=== PATIENT | male | born 1965 | race Caucasian/White ===

== ENCOUNTER 2021-01-23 16:45 | Emergency (ER) | payer OTHER, MEDICAID ==
[~2021-01-23] VITALS: Ht 185.4 cm; Wt 99.8 kg
[2021-01-23] MEDS ORDERED: HYDROcodone-ACET 5/325MG TAB PO ONE (17:15)
[2021-01-23 20:05] VITALS: BP 145/85
== END 2021-01-23 20:20 | disposition home or self-care (01) ==
LOC: EDBD 16:45 → ER 16:45
DX: S43.402A Unspecified sprain of left shoulder joint, initial encounter (principal); S76.012A Strain of muscle, fascia and tendon of left hip, initial encounter; M54.2 Cervicalgia; Z88.0 Allergy status to penicillin; W18.39XA Other fall on same level, initial encounter; Y93.89 Activity, other specified; Y92.89 Other specified places as the place of occurrence of the external cause; Y99.8 Other external cause status
CPT/HCPCS: 70450; 72125; 72192; 73030

== ENCOUNTER 2022-08-24 18:24 | Inpatient (IN) | payer OTHER, MEDICAID ==
[~2022-08-24] VITALS: Ht 218.4 cm; Wt 132.5 kg
[2022-08-24 19:17] LABS: Hematocrit 37.4 % (41.0-53.0); Hemoglobin 12.5 g/dL (13.5-17.5); Mean Corpuscular Hemoglobin 28.9 pg (28.0-32.0); Mean Corpuscular Hgb Conc. 33.5 g/dL (32.0-36.0); Mean Corpuscular Volume 86.1 fL (80.0-100.0); Red Blood Cells 4.34 10^6/uL (4.5-5.90); Red Cell Distribution Width 14.1 % (11.8-14.3); White Blood Cell 12.9 10^3/uL (4.4-10.8)
[2022-08-24 19:19] LABS: Basophils % (manual) 0 (0.0-2.0); Blast Cells 0; Eosinophils % (manual) 0 (0-7); Metamyelocytes % 0; Promyelocytes % 0; Reactive Lymphocytes 0
[2022-08-24 19:21] LABS: Albumin 2.7 g/dL (3.4-5.0); Calcium 8.5 mg/dL (8.5-10.1); Potassium 4.3 mmol/L (3.5-5.1)
[2022-08-24 19:24] LABS: BUN/Creatinine Ratio 21.6 (10.0-20.0); Bilirubin, Total 0.3 mg/dL (0.2-1.0); Total Protein 6.9 g/dL (6.4-8.2)
[2022-08-24 19:47] LABS: Urine Bacteria FEW /hpf (None Seen); Urine Blood 1+ /uL (Negative); Urine WBC 994 /hpf (0 - 3); Urine WBC Clumps PRESENT /hpf (None Seen)
[2022-08-24] MEDS ORDERED: HYDROcodone-ACET 10/325MG TAB PO ONE (21:00)
[2022-08-24] MEDS ORDERED: ONDANSETRON ODT 4 MG TAB PO ONE (21:00)
[2022-08-24 21:36] LABS: Alcohol, Urine < 3.0 mg/dL (0-10); Amphetamine Screen, Urine NEGATIVE (NEGATIVE); Barbiturate Scree,Urine NEGATIVE (NEGATIVE); Benzodiazephine Screen, Urine NEGATIVE (NEGATIVE); Cannabinoid Screen, Urine NEGATIVE (NEGATIVE); Cocaine Screen, Urine NEGATIVE (NEGATIVE); Opiate Scree,Urine NEGATIVE (NEGATIVE); Phencyclidine Screen, Urine NEGATIVE (NEGATIVE)
[2022-08-24 21:38] LABS: Band Neutrophils % (manual) 3; Lymphocytes % (manual) 16 (10.0-50.0); Monocytes % (manual) 11 (0-12); Myelocytes % 1
[2022-08-24 22:00] LABS: Blood Alcohol < 3.0 mg/dL (0-5); Lipase 36 U/L (73-393)
[2022-08-25] MEDS ORDERED: cefTRIAXone 1GM/50ML D5W 50 ML IV ONE (02:45)
[2022-08-25] MEDS ORDERED: ACETAMINOPHEN 325 MG TAB PO PRN (03:15)
[2022-08-25] MEDS ORDERED: DEXTROSE (50%) 50ML SYRG IV PRN (03:15)
[2022-08-25] MEDS ORDERED: HYDROcodone-ACET 10/325MG TAB PO ONE (04:30)
[2022-08-25] MEDS ORDERED: ONDANSETRON ODT 4 MG TAB PO ONE (04:30)
[2022-08-25] MEDS ORDERED: MORPHINE SULFATE INJ 2 MG/ml SYRG IV PRN (04:45)
[2022-08-25] MEDS ORDERED: NITROGLYCERIN 0.4 MG SL TAB SL PRN (04:45)
[2022-08-25 05:02] LABS: Hematocrit 38.1 % (41.0-53.0); Hemoglobin 12.6 g/dL (13.5-17.5); Mean Corpuscular Hemoglobin 28.5 pg (28.0-32.0); Mean Corpuscular Volume 86.5 fL (80.0-100.0); Red Blood Cells 4.41 10^6/uL (4.5-5.90); White Blood Cell 14.4 10^3/uL (4.4-10.8)
[2022-08-25 05:04] LABS: Basophils % (manual) 0 (0.0-2.0); Blast Cells 0; Myelocytes % 0; Promyelocytes % 0; Reactive Lymphocytes 0
[2022-08-25 05:17] LABS: Albumin 2.7 g/dL (3.4-5.0); Calcium 8.4 mg/dL (8.5-10.1); Potassium 4.4 mmol/L (3.5-5.1)
[2022-08-25 05:20] LABS: BUN/Creatinine Ratio 20.7 (10.0-20.0)
[2022-08-25 05:23] LABS: Bilirubin, Total 0.3 mg/dL (0.2-1.0); Total Protein 6.9 g/dL (6.4-8.2)
[2022-08-25] MEDS: SODIUM CHLOR 0.9% PF (SALINE LOCK) 10ML VIAL/SYR IV SCH ×3 (06:02→21:58)
[2022-08-25] MEDS: ACCU-CHEK COMFORT CURVE STRIP VI SCH ×4 (06:40→22:10)
[2022-08-25] MEDS: InsuLIN REG 1unit/0.01ml Soln (100units/ml) SC SCH ×4 (06:49→22:09)
[2022-08-25 09:41] LABS: Band Neutrophils % (manual) 2; Eosinophils % (manual) 2 (0-7); Lymphocytes % (manual) 16 (10.0-50.0); Metamyelocytes % 1; Monocytes % (manual) 5 (0-12)
[2022-08-25] MEDS: FAMOTIDINE (10MG/ML) 2ML VL IV SCH (10:44)
[2022-08-25] MEDS: ASPirin 81 mg TAB PO SCH (10:44)
[2022-08-25] MEDS: levoFLOXacin 250MG 50 ML IV SCH (10:44)
[2022-08-25] MEDS: CARVEDILOL 12.5 MG TAB PO SCH ×2 (10:45→21:57)
[2022-08-25] MEDS: DOCUSATE SOD 100 MG CAP PO PRN (11:18)
[2022-08-25] MEDS: ONDANSETRON HCL 4 MG/2 ML VIAL IV PRN ×2 (11:18→17:51)
[2022-08-25] MEDS: HYDROcodone-ACET 5/325MG TAB PO PRN ×2 (12:12→21:56)
[2022-08-25 16:00] VITALS: BP 109/61
[2022-08-25 16:52] VITALS: BP 120/66
[2022-08-25] MEDS: TAMSULOSIN HYDROCHLORIDE 0.4 MG CAP PO SCH (17:50)
[2022-08-25 20:00] VITALS: BP 138/58
[2022-08-25 22:00] VITALS: BP 138/58
[2022-08-26 05:00] VITALS: BP 129/57
[2022-08-26] MEDS: SODIUM CHLOR 0.9% PF (SALINE LOCK) 10ML VIAL/SYR IV SCH ×3 (05:42→22:44)
[2022-08-26] MEDS: ACCU-CHEK COMFORT CURVE STRIP VI SCH ×4 (05:43→22:06)
[2022-08-26] MEDS: InsuLIN REG 1unit/0.01ml Soln (100units/ml) SC SCH ×4 (05:47→22:36)
[2022-08-26 06:06] LABS: Hematocrit 35.9 % (41.0-53.0); Hemoglobin 11.7 g/dL (13.5-17.5); Mean Corpuscular Hemoglobin 28.3 pg (28.0-32.0); Mean Corpuscular Hgb Conc. 32.6 g/dL (32.0-36.0); Mean Corpuscular Volume 86.7 fL (80.0-100.0); Red Blood Cells 4.14 10^6/uL (4.5-5.90); Red Cell Distribution Width 13.9 % (11.8-14.3); White Blood Cell 13.1 10^3/uL (4.4-10.8)
[2022-08-26 06:18] LABS: Calcium 8.5 mg/dL (8.5-10.1); Potassium 4.5 mmol/L (3.5-5.1)
[2022-08-26 06:24] LABS: Albumin 2.3 g/dL (3.4-5.0); BUN/Creatinine Ratio 21.3 (10.0-20.0); Bilirubin, Total 0.3 mg/dL (0.2-1.0); Total Protein 6.1 g/dL (6.4-8.2)
[2022-08-26 06:33] LABS: Basophils % (manual) 0 (0.0-2.0); Blast Cells 0; Metamyelocytes % 0; Myelocytes % 0; Promyelocytes % 0
[2022-08-26 08:15] VITALS: BP 121/59
[2022-08-26 08:24] LABS: Band Neutrophils % (manual) 4; Eosinophils % (manual) 2 (0-7); Lymphocytes % (manual) 15 (10.0-50.0); Monocytes % (manual) 9 (0-12); Reactive Lymphocytes 1
[2022-08-26] MEDS: ONDANSETRON HCL 4 MG/2 ML VIAL IV PRN ×2 (08:40→18:01)
[2022-08-26] MEDS: DOCUSATE SOD 100 MG CAP PO PRN ×2 (08:41→18:01)
[2022-08-26 09:00] VITALS: BP 121/59
[2022-08-26] MEDS: FAMOTIDINE (10MG/ML) 2ML VL IV SCH (09:59)
[2022-08-26] MEDS: levoFLOXacin 250MG 50 ML IV SCH (10:00)
[2022-08-26] MEDS: CARVEDILOL 12.5 MG TAB PO SCH ×2 (10:00→22:45)
[2022-08-26] MEDS: ASPirin 81 mg TAB PO SCH (10:00)
[2022-08-26 13:00] VITALS: BP 137/67
[2022-08-26] MEDS: SODIUM CHLORIDE 0.9% 1,000 ML IV SCH ×2 (14:16→16:29)
[2022-08-26 16:27] LABS: Protein, Urine 32.8 mg/dL (0.0-11.9)
[2022-08-26 16:44] VITALS: BP 128/51
[2022-08-26] MEDS: TAMSULOSIN HYDROCHLORIDE 0.4 MG CAP PO SCH (17:44)
[2022-08-26 22:00] VITALS: BP 156/74
[2022-08-26] MEDS: HYDROcodone-ACET 5/325MG TAB PO PRN (22:06)
[2022-08-27 05:00] VITALS: BP 131/66
[2022-08-27 05:49] LABS: Basophils # (auto) 0.1 10 ^3/uL (0-0.2); Basophils % (auto) 0.4 % (0.0-2.0); Eosinophils # (auto) 0.2 10 ^3/uL (0-0.8); Hematocrit 34.5 % (41.0-53.0); Hemoglobin 11.4 g/dL (13.5-17.5); Lymphocytes # (auto) 1.8 10 ^3/uL (0.4-5.4); Lymphocytes % (auto) 15.7 % (10.0-50.0); Mean Corpuscular Hemoglobin 28.5 pg (28.0-32.0); Mean Corpuscular Hgb Conc. 33.1 g/dL (32.0-36.0); Monocytes # (auto) 1.2 10 ^3/uL (0-1.3); Monocytes % (auto) 10.8 % (0.0-12.0); Neutrophils % (auto) 71.1 % (37.0-80.0); Nucleated Red Blood Cells % 0.1 %; Red Cell Distribution Width 13.7 % (11.8-14.3); White Blood Cell 11.3 10^3/uL (4.4-10.8)
[2022-08-27] MEDS: SODIUM CHLORIDE 0.9% 1,000 ML IV SCH ×2 (06:14→17:32)
[2022-08-27] MEDS: ACCU-CHEK COMFORT CURVE STRIP VI SCH ×4 (06:14→22:54)
[2022-08-27] MEDS: SODIUM CHLOR 0.9% PF (SALINE LOCK) 10ML VIAL/SYR IV SCH ×3 (06:14→22:58)
[2022-08-27] MEDS: InsuLIN REG 1unit/0.01ml Soln (100units/ml) SC SCH ×4 (06:16→22:56)
[2022-08-27 06:22] LABS: Calcium 8.2 mg/dL (8.5-10.1); Potassium 4.8 mmol/L (3.5-5.1)
[2022-08-27 06:24] LABS: Uric Acid 5.8 mg/dL (3.5-7.2)
[2022-08-27] MEDS: ONDANSETRON HCL 4 MG/2 ML VIAL IV PRN ×3 (07:40→22:47)
[2022-08-27 08:15] VITALS: BP 150/73
[2022-08-27 09:00] VITALS: BP 150/73
[2022-08-27] MEDS: FAMOTIDINE (10MG/ML) 2ML VL IV SCH (10:14)
[2022-08-27] MEDS: DOCUSATE SOD 100 MG CAP PO PRN ×2 (10:15→22:48)
[2022-08-27] MEDS: HYDROcodone-ACET 5/325MG TAB PO PRN ×3 (10:15→22:48)
[2022-08-27] MEDS: ASPirin 81 mg TAB PO SCH (10:15)
[2022-08-27] MEDS: CARVEDILOL 12.5 MG TAB PO SCH ×2 (10:15→22:51)
[2022-08-27] MEDS: levoFLOXacin 250MG 50 ML IV SCH (10:16)
[2022-08-27 12:52] VITALS: BP 146/81
[2022-08-27] MEDS: TAMSULOSIN HYDROCHLORIDE 0.4 MG CAP PO SCH (17:47)
[2022-08-27 22:00] VITALS: BP 149/67
[2022-08-28] MEDS: SODIUM CHLORIDE 0.9% 1,000 ML IV SCH ×2 (02:45→12:45)
[2022-08-28 05:00] VITALS: BP 136/59
[2022-08-28] MEDS: SODIUM CHLOR 0.9% PF (SALINE LOCK) 10ML VIAL/SYR IV SCH ×3 (06:46→22:38)
[2022-08-28] MEDS: ACCU-CHEK COMFORT CURVE STRIP VI SCH ×4 (06:46→22:38)
[2022-08-28 06:47] LABS: Calcium 8.2 mg/dL (8.5-10.1); Potassium 4.8 mmol/L (3.5-5.1)
[2022-08-28] MEDS: ONDANSETRON HCL 4 MG/2 ML VIAL IV PRN ×3 (06:56→22:33)
[2022-08-28] MEDS: InsuLIN REG 1unit/0.01ml Soln (100units/ml) SC SCH ×4 (06:56→22:39)
[2022-08-28 09:07] VITALS: BP 128/64
[2022-08-28] MEDS: ASPirin 81 mg TAB PO SCH (10:58)
[2022-08-28] MEDS: CARVEDILOL 12.5 MG TAB PO SCH ×3 (10:59→22:33)
[2022-08-28] MEDS: levoFLOXacin 250MG 50 ML IV SCH (10:59)
[2022-08-28] MEDS ORDERED: LEVO500T31 PO ×2 (11:21)
[2022-08-28] MEDS ORDERED: TAM04C PO ×2 (11:21)
[2022-08-28] MEDS ORDERED: DOCU-94 PO ×2 (11:22)
[2022-08-28] MEDS ORDERED: ENAL10TA12 PO ×2 (11:22)
[2022-08-28 13:00] VITALS: BP 140/68
[2022-08-28 13:56] VITALS: BP 140/68
[2022-08-28] MEDS ORDERED: POLYETHYLENE GLYCOL 17 GM PWDR PO ONE (14:15)
[2022-08-28 17:00] VITALS: BP 141/69
[2022-08-28] MEDS: TAMSULOSIN HYDROCHLORIDE 0.4 MG CAP PO SCH (18:00)
[2022-08-28 21:30] VITALS: BP 147/58
[2022-08-28] MEDS: DOCUSATE SOD 100 MG CAP PO PRN (22:33)
[2022-08-28] MEDS: HYDROcodone-ACET 5/325MG TAB PO PRN (22:33)
[2022-08-29] MEDS: SODIUM CHLORIDE 0.9% 1,000 ML IV SCH ×4 (00:09→14:11)
[2022-08-29] MEDS: ONDANSETRON HCL 4 MG/2 ML VIAL IV PRN ×3 (02:40→21:28)
[2022-08-29 05:00] VITALS: BP 142/71
[2022-08-29] MEDS: SODIUM CHLOR 0.9% PF (SALINE LOCK) 10ML VIAL/SYR IV SCH ×3 (06:45→21:13)
[2022-08-29] MEDS: InsuLIN REG 1unit/0.01ml Soln (100units/ml) SC SCH ×4 (07:00→21:23)
[2022-08-29] MEDS: ACCU-CHEK COMFORT CURVE STRIP VI SCH ×4 (07:00→21:12)
[2022-08-29] MEDS: ASPirin 81 mg TAB PO SCH (08:48)
[2022-08-29] MEDS: levoFLOXacin 250MG 50 ML IV SCH (08:48)
[2022-08-29] MEDS: CARVEDILOL 12.5 MG TAB PO SCH ×2 (08:50→09:50)
[2022-08-29 08:52] VITALS: BP 126/73
[2022-08-29] MEDS ORDERED: FLEET ENEMA(ADULT) 135 ML PR ONE (11:00)
[2022-08-29] MEDS ORDERED: LACTULOSE 20Gm/30ML SOLN PO ONE (11:00)
[2022-08-29 13:19] VITALS: BP 164/63
[2022-08-29 17:02] VITALS: BP 151/71
[2022-08-29] MEDS: TAMSULOSIN HYDROCHLORIDE 0.4 MG CAP PO SCH (18:48)
[2022-08-29] MEDS: DOCUSATE SOD 100 MG CAP PO PRN (21:27)
[2022-08-29 22:00] VITALS: BP 143/70
[2022-08-29] MEDS ORDERED: CARVEDILOL 12.5 MG TAB PO ONE (22:00)
[2022-08-30] MEDS: ONDANSETRON HCL 4 MG/2 ML VIAL IV PRN ×2 (04:23→09:42)
[2022-08-30] MEDS: HYDROcodone-ACET 5/325MG TAB PO PRN ×2 (04:31→09:42)
[2022-08-30 05:00] VITALS: BP 143/68
[2022-08-30] MEDS: SODIUM CHLOR 0.9% PF (SALINE LOCK) 10ML VIAL/SYR IV SCH (06:33)
[2022-08-30] MEDS: ACCU-CHEK COMFORT CURVE STRIP VI SCH ×2 (06:34→12:00)
[2022-08-30] MEDS: InsuLIN REG 1unit/0.01ml Soln (100units/ml) SC SCH ×3 (06:35→12:48)
[2022-08-30 09:00] VITALS: BP 152/75
[2022-08-30] MEDS: DOCUSATE SOD 100 MG CAP PO PRN (09:42)
[2022-08-30] MEDS: CARVEDILOL 12.5 MG TAB PO SCH (09:42)
[2022-08-30] MEDS: ASPirin 81 mg TAB PO SCH (09:42)
[2022-08-30] MEDS: levoFLOXacin 250MG 50 ML IV SCH (09:43)
[2022-08-30] MEDS ORDERED: LEVO500T31 PO (10:07)
[2022-08-30] MEDS ORDERED: DOCU-94 PO (10:07)
[2022-08-30] MEDS ORDERED: PANT40T PO (10:07)
[2022-08-30] MEDS ORDERED: ENAL10TA12 PO (10:07)
[2022-08-30] MEDS ORDERED: TAM04C PO (10:07)
[2022-08-30] MEDS ORDERED: ONDA-144 PO (10:07)
== END 2022-08-30 12:30 | disposition home or self-care (01) | DRG 871 ==
LOC: ER 18:24 → OVERFLOW 08-25 04:42 → WEST WING 08-25 15:53
PROVIDERS: ADMIT Nurse Practitioner Family; ATTEND Family Medicine
PROC: 05HF33Z Insertion of Infusion Device into Left Cephalic Vein, Percutaneous Approach (ICD-10-PCS; principal; 2022-08-25)
PROC: B54NZZA Ultrasonography of Left Upper Extremity Veins, Guidance (ICD-10-PCS; 2022-08-25)
DX: A41.9 Sepsis, unspecified organism (principal); I50.31 Acute diastolic (congestive) heart failure; N17.9 Acute kidney failure, unspecified; L03.115 Cellulitis of right lower limb; E87.1 Hypo-osmolality and hyponatremia; I13.0 Hypertensive heart and chronic kidney disease with heart failure and stage 1 through stage 4 chronic kidney disease, or unspecified chronic kidney disease; N30.90 Cystitis, unspecified without hematuria; R33.8 Other retention of urine; N32.89 Other specified disorders of bladder; I25.10 Atherosclerotic heart disease of native coronary artery without angina pectoris; J44.9 Chronic obstructive pulmonary disease, unspecified; E66.9 Obesity, unspecified; N40.1 Benign prostatic hyperplasia with lower urinary tract symptoms; K59.00 Constipation, unspecified; F41.9 Anxiety disorder, unspecified; E11.22 Type 2 diabetes mellitus with diabetic chronic kidney disease; E11.42 Type 2 diabetes mellitus with diabetic polyneuropathy; E78.5 Hyperlipidemia, unspecified; Z99.3 Dependence on wheelchair; I25.2 Old myocardial infarction; Z91.199 Patient's noncompliance with other medical treatment and regimen due to unspecified reason; Z88.0 Allergy status to penicillin; Z88.1 Allergy status to other antibiotic agents; Z88.2 Allergy status to sulfonamides; Z83.3 Family history of diabetes mellitus; Z89.512 Acquired absence of left leg below knee; Z95.1 Presence of aortocoronary bypass graft; Z86.73 Personal history of transient ischemic attack (TIA), and cerebral infarction without residual deficits; Z87.891 Personal history of nicotine dependence; Z68.26 Body mass index [BMI] 26.0-26.9, adult; N18.32 Chronic kidney disease, stage 3b; E11.65 Type 2 diabetes mellitus with hyperglycemia
CPT/HCPCS: 36415; 74176; 80048; 80053; 80307; 80320; 81001; 82306; 82570; 82962; 83036; 83690; 83880; 83930; 84154; 84156; 84300; 84443; 84484; 84550; 85007; 85025; 85027; 87040; 87086; G0378; J0696; J1815; J2405; J3490; Q0162

== ENCOUNTER 2022-09-10 02:35 | Inpatient (IN) | payer OTHER, MEDICAID ==
[~2022-09-10] VITALS: Ht 188 cm; Wt 138.6 kg
[~2022-09-10 02:35] MED LIST: DOCU-94 PO; ENAL10TA12 PO; LEVO500T31 PO; ONDA-144 PO; PANT40T PO; TAM04C PO
[2022-09-10] MEDS ORDERED: HYDROcodone-ACET 10/325MG TAB PO ONE (08:00)
[2022-09-10 08:14] LABS: Hemoglobin 12.4 g/dL (13.5-17.5); Mean Corpuscular Hemoglobin 28.5 pg (28.0-32.0); Mean Corpuscular Hgb Conc. 32.7 g/dL (32.0-36.0); Red Blood Cells 4.36 10^6/uL (4.5-5.90); Red Cell Distribution Width 13.6 % (11.8-14.3)
[2022-09-10 08:19] LABS: Basophils % (manual) 0 (0.0-2.0); Blast Cells 0; Eosinophils % (manual) 0 (0-7); Metamyelocytes % 0; Myelocytes % 0; Promyelocytes % 0; Reactive Lymphocytes 0
[2022-09-10 08:42] LABS: Albumin 2.9 g/dL (3.4-5.0); Calcium 8.4 mg/dL (8.5-10.1); Potassium 4.6 mmol/L (3.5-5.1)
[2022-09-10 08:45] LABS: BUN/Creatinine Ratio 16.3 (10.0-20.0); Bilirubin, Total 0.7 mg/dL (0.2-1.0); Total Protein 7.4 g/dL (6.4-8.2)
[2022-09-10] MEDS ORDERED: levoFLOXacin 750MG 150 ML IV ONE (09:00)
[2022-09-10] MEDS: SODIUM CHLORIDE 0.9% 1,000 ML IV SCH ×2 (10:54→20:45)
[2022-09-10 11:11] LABS: Urine Bacteria FEW /hpf (None Seen); Urine Blood 3+ /uL (Negative); Urine Specific Gravity 1.011 (1.001-1.035); Urine WBC 1576 /hpf (0 - 3); Urine WBC Clumps PRESENT /hpf (None Seen)
[2022-09-10 11:17] LABS: Cholesterol 107 mg/dL (< 200)
[2022-09-10 11:20] LABS: HDL Cholesterol 36 mg/dL (40-59); LDL Cholesterol 66 mg/dL (< 100); Triglycerides 108 mg/dL (< 150)
[2022-09-10] MEDS ORDERED: IPRATROPIUM BROM 0.5 MG/2.5ML INH SOL NEB PRN (11:45)
[2022-09-10] MEDS ORDERED: ALBUTEROL SULF 2.5 MG/0.5ML(0.5%) NEB SOLN NEB PRN (11:45)
[2022-09-10] MEDS ORDERED: MORPHINE SULFATE INJ 2 MG/ml SYRG IV PRN ×2 (11:45→12:00)
[2022-09-10] MEDS ORDERED: NITROGLYCERIN 0.4 MG SL TAB SL PRN (11:45)
[2022-09-10] MEDS ORDERED: ASPI-325 PO (11:55)
[2022-09-10] MEDS ORDERED: ENOXAPARIN SOD 150 MG/1 ML SYRINGE SC ONE (12:00)
[2022-09-10] MEDS: INSULIN LANTUS (GLARGINE) 1 /0.01ml (100units/ml) SC SCH ×2 (12:07→22:10)
[2022-09-10] MEDS: TAMSULOSIN HYDROCHLORIDE 0.4 MG CAP PO SCH (12:07)
[2022-09-10] MEDS ORDERED: ONDANSETRON HCL 4 MG/2 ML VIAL IV ONE (12:15)
[2022-09-10 12:23] LABS: INR 1.08 (0.9-1.15); Partial Thromboplastin Time 32.2 sec (24.6-33.4)
[2022-09-10 12:56] LABS: Band Neutrophils % (manual) 10; Lymphocytes % (manual) 9 (10.0-50.0); Monocytes % (manual) 13 (0-12)
[2022-09-10] MEDS: AZTREONAM 1 GM in D5W 5% 50 ML IV SCH ×2 (14:00→22:05)
[2022-09-10 17:18] VITALS: BP 114/64
[2022-09-10] MEDS: HYDROcodone-ACET 5/325MG TAB PO PRN (20:04)
[2022-09-10] MEDS ORDERED: DEXTROSE (50%) 50ML SYRG IV PRN (20:45)
[2022-09-10] MEDS: ONDANSETRON HCL 4 MG/2 ML VIAL IV PRN (21:07)
[2022-09-10] MEDS: InsuLIN REG 1unit/0.01ml Soln (100units/ml) SC SCH (21:09)
[2022-09-10] MEDS: ACCU-CHEK COMFORT CURVE STRIP VI SCH (21:13)
[2022-09-10] MEDS ORDERED: CEFEPIME 1GM/ 50ML 50 ML IV SCH (22:00)
[2022-09-11] MEDS: HYDROcodone-ACET 5/325MG TAB PO PRN ×4 (02:10→23:07)
[2022-09-11] MEDS: ONDANSETRON HCL 4 MG/2 ML VIAL IV PRN ×3 (04:01→16:55)
[2022-09-11 05:53] LABS: Hematocrit 30.7 % (41.0-53.0); Hemoglobin 10.5 g/dL (13.5-17.5); Mean Corpuscular Hemoglobin 29.4 pg (28.0-32.0); Mean Corpuscular Hgb Conc. 34.1 g/dL (32.0-36.0); Mean Corpuscular Volume 86.4 fL (80.0-100.0); Red Blood Cells 3.55 10^6/uL (4.5-5.90); Red Cell Distribution Width 13.5 % (11.8-14.3); White Blood Cell 9.2 10^3/uL (4.4-10.8)
[2022-09-11 06:06] LABS: Basophils % (manual) 0 (0.0-2.0); Blast Cells 0; Myelocytes % 0; Promyelocytes % 0; Reactive Lymphocytes 0
[2022-09-11 06:09] LABS: Albumin 2.4 g/dL (3.4-5.0); Calcium 7.9 mg/dL (8.5-10.1); Potassium 4.3 mmol/L (3.5-5.1)
[2022-09-11 06:14] LABS: Bilirubin, Total 0.4 mg/dL (0.2-1.0); Total Protein 6.6 g/dL (6.4-8.2)
[2022-09-11] MEDS: AZTREONAM 1 GM in D5W 5% 50 ML IV SCH ×3 (06:18→23:00)
[2022-09-11] MEDS: ACCU-CHEK COMFORT CURVE STRIP VI SCH ×4 (06:58→23:08)
[2022-09-11] MEDS: INSULIN LANTUS (GLARGINE) 1 /0.01ml (100units/ml) SC SCH ×2 (07:07→22:59)
[2022-09-11] MEDS: InsuLIN REG 1unit/0.01ml Soln (100units/ml) SC SCH ×4 (07:08→22:00)
[2022-09-11] MEDS: PANTOPRAZOLE 40 MG/10 ML VIAL INJ IV SCH (08:59)
[2022-09-11] MEDS: TAMSULOSIN HYDROCHLORIDE 0.4 MG CAP PO SCH (09:00)
[2022-09-11] MEDS: ENOXAPARIN SOD 40 MG/0.4 ML SYRINGE SC SCH (09:00)
[2022-09-11] MEDS: SODIUM CHLORIDE 0.9% 1,000 ML IV SCH ×2 (09:12→14:31)
[2022-09-11 10:00] LABS: Band Neutrophils % (manual) 6; Eosinophils % (manual) 3 (0-7); Lymphocytes % (manual) 19 (10.0-50.0); Metamyelocytes % 1; Monocytes % (manual) 14 (0-12)
[2022-09-11] MEDS ORDERED: PANTOPRAZOLE 40 MG/10 ML VIAL INJ IV SCH (10:00)
[2022-09-11] MEDS ORDERED: MORPHINE SULFATE INJ 2 MG/ml SYRG IV PRN (11:00)
[2022-09-11 14:31] VITALS: BP 159/84
[2022-09-11 14:42] VITALS: BP 159/84
[2022-09-11 17:03] VITALS: BP 118/53
[2022-09-11] MEDS ORDERED: DOCU100C10 PO (18:05)
[2022-09-11] MEDS ORDERED: ALBU108A5 PO (18:05)
[2022-09-11] MEDS ORDERED: POTA1TAB64 PO (18:05)
[2022-09-11] MEDS ORDERED: CARV6.2551 PO (18:05)
[2022-09-11] MEDS ORDERED: NYS15TP TOP (18:05)
[2022-09-11] MEDS ORDERED: ENAL10TA13 PO (18:05)
[2022-09-11] MEDS ORDERED: HYDR-4798 PO (18:05)
[2022-09-11] MEDS ORDERED: LORA-483 PO (18:05)
[2022-09-11] MEDS ORDERED: ONDA-188 PO (18:05)
[2022-09-11] MEDS ORDERED: TAMS0.4C36 PO (18:05)
[2022-09-11] MEDS ORDERED: GAB100C PO (18:05)
[2022-09-11] MEDS ORDERED: ROSU1TAB12 PO (18:05)
[2022-09-11] MEDS ORDERED: SEMA2INJ2 SC (18:05)
[2022-09-11] MEDS ORDERED: DIGO0.12 PO (18:05)
[2022-09-11] MEDS ORDERED: INSU100I44 SC (18:05)
[2022-09-11] MEDS ORDERED: PANC3600 PO (18:05)
[2022-09-11] MEDS ORDERED: INSU1INJ19 SC (18:05)
[2022-09-11] MEDS ORDERED: CLOP75TA70 PO (18:05)
[2022-09-11 20:20] VITALS: BP 114/56
[2022-09-11 22:00] VITALS: BP 114/56
[2022-09-12] MEDS: SODIUM CHLORIDE 0.9% 1,000 ML IV SCH ×3 (04:43→14:00)
[2022-09-12 05:00] VITALS: BP 123/57
[2022-09-12] MEDS: InsuLIN REG 1unit/0.01ml Soln (100units/ml) SC SCH ×4 (06:28→22:19)
[2022-09-12] MEDS: INSULIN LANTUS (GLARGINE) 1 /0.01ml (100units/ml) SC SCH ×2 (06:28→22:17)
[2022-09-12] MEDS: AZTREONAM 1 GM in D5W 5% 50 ML IV SCH ×3 (06:29→22:16)
[2022-09-12] MEDS: ACCU-CHEK COMFORT CURVE STRIP VI SCH ×4 (06:30→22:16)
[2022-09-12 08:00] VITALS: BP 122/55
[2022-09-12 09:00] VITALS: BP 122/55
[2022-09-12] MEDS: TAMSULOSIN HYDROCHLORIDE 0.4 MG CAP PO SCH (09:52)
[2022-09-12] MEDS: ENOXAPARIN SOD 40 MG/0.4 ML SYRINGE SC SCH (09:52)
[2022-09-12] MEDS: PANTOPRAZOLE 40 MG/10 ML VIAL INJ IV SCH (09:52)
[2022-09-12] MEDS: HYDROcodone-ACET 5/325MG TAB PO PRN (09:53)
[2022-09-12 13:00] VITALS: BP 114/60
[2022-09-12 17:00] VITALS: BP 128/52
[2022-09-12 22:00] VITALS: BP 134/77
[2022-09-13 05:00] VITALS: BP 133/64
[2022-09-13] MEDS: AZTREONAM 1 GM in D5W 5% 50 ML IV SCH ×3 (06:06→21:40)
[2022-09-13] MEDS: INSULIN LANTUS (GLARGINE) 1 /0.01ml (100units/ml) SC SCH ×2 (06:07→21:22)
[2022-09-13] MEDS: InsuLIN REG 1unit/0.01ml Soln (100units/ml) SC SCH ×4 (06:12→21:23)
[2022-09-13] MEDS: ACCU-CHEK COMFORT CURVE STRIP VI SCH ×4 (06:12→21:40)
[2022-09-13] MEDS: SODIUM CHLORIDE 0.9% 1,000 ML IV SCH ×2 (08:45→15:33)
[2022-09-13 09:00] VITALS: BP 140/59
[2022-09-13 09:30] LABS: BUN/Creatinine Ratio 12.7 (10.0-20.0); Calcium 7.8 mg/dL (8.5-10.1); Potassium 4.6 mmol/L (3.5-5.1)
[2022-09-13 09:51] LABS: Basophils # (auto) 0 10 ^3/uL (0-0.2); Basophils % (auto) 0.6 % (0.0-2.0); Eosinophils # (auto) 0.2 10 ^3/uL (0-0.8); Eosinophils % (auto) 4.5 % (0.0-7.0); Hematocrit 32.5 % (41.0-53.0); Hemoglobin 10.4 g/dL (13.5-17.5); Lymphocytes # (auto) 1.4 10 ^3/uL (0.4-5.4); Lymphocytes % (auto) 25.5 % (10.0-50.0); Mean Corpuscular Hemoglobin 30.2 pg (28.0-32.0); Mean Corpuscular Hgb Conc. 32.1 g/dL (32.0-36.0); Mean Corpuscular Volume 93.9 fL (80.0-100.0); Monocytes # (auto) 0.8 10 ^3/uL (0-1.3); Monocytes % (auto) 14.5 % (0.0-12.0); Neutrophils % (auto) 54.9 % (37.0-80.0); Nucleated Red Blood Cells % 0.2 %; Red Blood Cells 3.46 10^6/uL (4.5-5.90); White Blood Cell 5.5 10^3/uL (4.4-10.8)
[2022-09-13] MEDS: TAMSULOSIN HYDROCHLORIDE 0.4 MG CAP PO SCH (10:32)
[2022-09-13] MEDS: DOCUSATE SOD 100 MG CAP PO SCH (10:32)
[2022-09-13] MEDS: PANTOPRAZOLE 40 MG/10 ML VIAL INJ IV SCH (10:33)
[2022-09-13] MEDS: ENOXAPARIN SOD 40 MG/0.4 ML SYRINGE SC SCH (10:33)
[2022-09-13 13:00] VITALS: BP 137/54
[2022-09-13 16:44] VITALS: BP 131/60
[2022-09-13 22:00] VITALS: BP 142/77
[2022-09-14 05:00] VITALS: BP 149/79
[2022-09-14] MEDS: SODIUM CHLORIDE 0.9% 1,000 ML IV SCH ×2 (05:03→14:45)
[2022-09-14] MEDS: AZTREONAM 1 GM in D5W 5% 50 ML IV SCH ×3 (06:02→22:08)
[2022-09-14] MEDS: ACCU-CHEK COMFORT CURVE STRIP VI SCH ×4 (06:29→22:22)
[2022-09-14] MEDS: InsuLIN REG 1unit/0.01ml Soln (100units/ml) SC SCH ×4 (06:30→22:32)
[2022-09-14] MEDS: INSULIN LANTUS (GLARGINE) 1 /0.01ml (100units/ml) SC SCH ×2 (06:36→22:33)
[2022-09-14 09:00] VITALS: BP 161/73
[2022-09-14] MEDS: TAMSULOSIN HYDROCHLORIDE 0.4 MG CAP PO SCH (10:20)
[2022-09-14] MEDS: DOCUSATE SOD 100 MG CAP PO SCH (10:21)
[2022-09-14] MEDS: ENOXAPARIN SOD 40 MG/0.4 ML SYRINGE SC SCH (10:21)
[2022-09-14] MEDS: PANTOPRAZOLE 40 MG/10 ML VIAL INJ IV SCH (10:21)
[2022-09-14 13:00] VITALS: BP 139/75
[2022-09-14 16:40] VITALS: BP 154/91
[2022-09-14 20:00] VITALS: BP 153/81
[2022-09-14 21:55] VITALS: BP 153/81
[2022-09-14] MEDS: hydrALAZINE HCL 20 MG/ML VL IV PRN (22:14)
[2022-09-15] MEDS: SODIUM CHLORIDE 0.9% 1,000 ML IV SCH ×3 (00:45→21:43)
[2022-09-15] MEDS: AZTREONAM 1 GM in D5W 5% 50 ML IV SCH ×3 (05:20→21:44)
[2022-09-15] MEDS: hydrALAZINE HCL 20 MG/ML VL IV PRN ×2 (05:25→22:27)
[2022-09-15 05:26] VITALS: BP 157/77
[2022-09-15] MEDS: ACCU-CHEK COMFORT CURVE STRIP VI SCH ×4 (05:38→21:50)
[2022-09-15] MEDS: InsuLIN REG 1unit/0.01ml Soln (100units/ml) SC SCH ×4 (05:44→21:49)
[2022-09-15] MEDS: INSULIN LANTUS (GLARGINE) 1 /0.01ml (100units/ml) SC SCH ×2 (05:45→21:50)
[2022-09-15 08:00] VITALS: BP 153/81
[2022-09-15 09:09] VITALS: BP 133/58
[2022-09-15] MEDS: TAMSULOSIN HYDROCHLORIDE 0.4 MG CAP PO SCH (09:58)
[2022-09-15] MEDS: DOCUSATE SOD 100 MG CAP PO SCH (09:58)
[2022-09-15] MEDS: PANTOPRAZOLE 40 MG/10 ML VIAL INJ IV SCH (09:58)
[2022-09-15] MEDS: ENOXAPARIN SOD 40 MG/0.4 ML SYRINGE SC SCH (09:59)
[2022-09-15] MEDS ORDERED: MILK OF MAGNESIA 30ML SUSP PO ONE (13:45)
[2022-09-15 16:31] VITALS: BP 127/81
[2022-09-15 22:00] VITALS: BP 159/70
[2022-09-15] MEDS: ONDANSETRON HCL 4 MG/2 ML VIAL IV PRN (22:14)
[2022-09-15 23:20] VITALS: BP 112/53
[2022-09-16] MEDS: HYDROcodone-ACET 5/325MG TAB PO PRN (03:57)
[2022-09-16] MEDS: AZTREONAM 1 GM in D5W 5% 50 ML IV SCH ×3 (05:30→22:00)
[2022-09-16] MEDS: INSULIN LANTUS (GLARGINE) 1 /0.01ml (100units/ml) SC SCH ×2 (06:17→22:07)
[2022-09-16] MEDS: InsuLIN REG 1unit/0.01ml Soln (100units/ml) SC SCH ×4 (06:17→22:07)
[2022-09-16] MEDS: ACCU-CHEK COMFORT CURVE STRIP VI SCH ×4 (06:17→22:08)
[2022-09-16] MEDS: SODIUM CHLORIDE 0.9% 1,000 ML IV SCH ×2 (06:18→14:35)
[2022-09-16 08:00] VITALS: BP 127/58
[2022-09-16] MEDS: ONDANSETRON HCL 4 MG/2 ML VIAL IV PRN (08:36)
[2022-09-16 09:00] VITALS: BP 127/88
[2022-09-16] MEDS: TAMSULOSIN HYDROCHLORIDE 0.4 MG CAP PO SCH (11:49)
[2022-09-16] MEDS: DOCUSATE SOD 100 MG CAP PO SCH (11:49)
[2022-09-16] MEDS: ENOXAPARIN SOD 40 MG/0.4 ML SYRINGE SC SCH (11:50)
[2022-09-16 13:00] VITALS: BP 137/61
[2022-09-16] MEDS: PANTOPRAZOLE 40 MG/10 ML VIAL INJ IV SCH (14:35)
[2022-09-16] MEDS ORDERED: LEVO-28 PO (15:56)
[2022-09-16 17:24] VITALS: BP 130/65
[2022-09-16 22:00] VITALS: BP 134/63
[2022-09-17] MEDS ORDERED: MILK OF MAGNESIA 30ML SUSP PO PRN (00:30)
[2022-09-17 04:55] VITALS: BP 140/61
[2022-09-17] MEDS: SODIUM CHLORIDE 0.9% 1,000 ML IV SCH ×3 (05:31→21:43)
[2022-09-17] MEDS: AZTREONAM 1 GM in D5W 5% 50 ML IV SCH ×3 (05:31→21:34)
[2022-09-17] MEDS: InsuLIN REG 1unit/0.01ml Soln (100units/ml) SC SCH ×4 (06:28→21:42)
[2022-09-17] MEDS: INSULIN LANTUS (GLARGINE) 1 /0.01ml (100units/ml) SC SCH ×2 (06:29→21:43)
[2022-09-17] MEDS: ACCU-CHEK COMFORT CURVE STRIP VI SCH ×4 (06:29→21:43)
[2022-09-17] MEDS: MILK OF MAGNESIA 30ML SUSP PO PRN ×2 (06:32→14:12)
[2022-09-17 09:00] VITALS: BP 132/65
[2022-09-17] MEDS: TAMSULOSIN HYDROCHLORIDE 0.4 MG CAP PO SCH (09:39)
[2022-09-17] MEDS: PANTOPRAZOLE 40 MG/10 ML VIAL INJ IV SCH (09:39)
[2022-09-17] MEDS: DOCUSATE SOD 100 MG CAP PO SCH (09:39)
[2022-09-17] MEDS: ENOXAPARIN SOD 40 MG/0.4 ML SYRINGE SC SCH (09:40)
[2022-09-17 13:00] VITALS: BP 107/65
[2022-09-17] MEDS: ONDANSETRON HCL 4 MG/2 ML VIAL IV PRN (14:12)
[2022-09-17 17:00] VITALS: BP 134/61
[2022-09-17 20:00] VITALS: BP 127/52
[2022-09-17 22:00] VITALS: BP 127/52
[2022-09-18 05:00] VITALS: BP 153/66
[2022-09-18] MEDS: ACCU-CHEK COMFORT CURVE STRIP VI SCH ×3 (06:16→17:00)
[2022-09-18] MEDS: AZTREONAM 1 GM in D5W 5% 50 ML IV SCH ×2 (06:20→13:10)
[2022-09-18] MEDS: InsuLIN REG 1unit/0.01ml Soln (100units/ml) SC SCH ×3 (06:21→17:00)
[2022-09-18] MEDS: INSULIN LANTUS (GLARGINE) 1 /0.01ml (100units/ml) SC SCH (06:28)
[2022-09-18] MEDS: SODIUM CHLORIDE 0.9% 1,000 ML IV SCH (08:45)
[2022-09-18 09:00] VITALS: BP 145/62
[2022-09-18] MEDS: PANTOPRAZOLE 40 MG/10 ML VIAL INJ IV SCH (10:31)
[2022-09-18] MEDS: ENOXAPARIN SOD 40 MG/0.4 ML SYRINGE SC SCH (10:32)
[2022-09-18] MEDS: DOCUSATE SOD 100 MG CAP PO SCH (10:32)
[2022-09-18] MEDS: TAMSULOSIN HYDROCHLORIDE 0.4 MG CAP PO SCH (10:32)
[2022-09-18] MEDS: MILK OF MAGNESIA 30ML SUSP PO PRN (10:47)
[2022-09-18 12:36] VITALS: BP 147/66
[2022-09-18 12:43] VITALS: BP 142/67
[2022-09-18 13:48] LABS: Hematocrit 34.3 % (41.0-53.0); Hemoglobin 11.1 g/dL (13.5-17.5); Mean Corpuscular Hemoglobin 27.8 pg (28.0-32.0); Mean Corpuscular Hgb Conc. 32.3 g/dL (32.0-36.0); Mean Corpuscular Volume 86.2 fL (80.0-100.0); Red Blood Cells 3.98 10^6/uL (4.5-5.90); White Blood Cell 6.3 10^3/uL (4.4-10.8)
[2022-09-18 13:53] LABS: Basophils % (manual) 0 (0.0-2.0); Blast Cells 0; Myelocytes % 0; Promyelocytes % 0; Reactive Lymphocytes 0
[2022-09-18 14:05] LABS: BUN/Creatinine Ratio 10.3 (10.0-20.0); Calcium 8.4 mg/dL (8.5-10.1); Potassium 4.9 mmol/L (3.5-5.1)
[2022-09-18 14:17] LABS: Band Neutrophils % (manual) 10; Eosinophils % (manual) 1 (0-7); Lymphocytes % (manual) 17 (10.0-50.0); Metamyelocytes % 2; Monocytes % (manual) 13 (0-12)
[2022-09-18 17:09] VITALS: BP 142/72
== END 2022-09-18 18:23 | disposition home health service (06) | DRG 871 ==
LOC: ER 02:35 → TELE 11:42 → TELE-WESTW 09-11 13:53 → WEST WING 09-13 22:38
PROVIDERS: ADMIT Registered Nurse; ATTEND Internal Medicine
DX: A41.9 Sepsis, unspecified organism (principal); E43 Unspecified severe protein-calorie malnutrition; N39.0 Urinary tract infection, site not specified; N17.9 Acute kidney failure, unspecified; I13.0 Hypertensive heart and chronic kidney disease with heart failure and stage 1 through stage 4 chronic kidney disease, or unspecified chronic kidney disease; I50.9 Heart failure, unspecified; J44.9 Chronic obstructive pulmonary disease, unspecified; E11.22 Type 2 diabetes mellitus with diabetic chronic kidney disease; E66.01 Morbid (severe) obesity due to excess calories; G47.30 Sleep apnea, unspecified; I87.8 Other specified disorders of veins; S81.801A Unspecified open wound, right lower leg, initial encounter; N40.1 Benign prostatic hyperplasia with lower urinary tract symptoms; R33.8 Other retention of urine; X58.XXXA Exposure to other specified factors, initial encounter; E11.42 Type 2 diabetes mellitus with diabetic polyneuropathy; I73.9 Peripheral vascular disease, unspecified; E78.5 Hyperlipidemia, unspecified; N18.32 Chronic kidney disease, stage 3b; Z88.0 Allergy status to penicillin; Z88.2 Allergy status to sulfonamides; Z79.899 Other long term (current) drug therapy; Z95.1 Presence of aortocoronary bypass graft; Z89.512 Acquired absence of left leg below knee; Z68.39 Body mass index [BMI] 39.0-39.9, adult; Z79.82 Long term (current) use of aspirin; Y93.89 Activity, other specified; Y92.89 Other specified places as the place of occurrence of the external cause; Y99.8 Other external cause status; Z82.0 Family history of epilepsy and other diseases of the nervous system; Z83.3 Family history of diabetes mellitus; Z86.73 Personal history of transient ischemic attack (TIA), and cerebral infarction without residual deficits; Z87.891 Personal history of nicotine dependence; Z99.3 Dependence on wheelchair
CPT/HCPCS: 36415; 71045; 74176; 76705; 78582; 80048; 80053; 80061; 81001; 82962; 83605; 84443; 84484; 85007; 85025; 85027; 85379; 85610; 85730; 87040; 87081; 87086; 93005; 93926; 93971; 96365; 96372; 96375; C9113; G0378; J1815; J1956; J2405; J7060

== ENCOUNTER 2024-12-26 10:19 | Inpatient (IN) | payer OTHER, MEDICAID ==
[~2024-12-26] VITALS: Ht 188 cm; Wt 125.6 kg
[~2024-12-26 10:19] MED LIST changes: +ALBU108A5 PO; +ASPI-325 PO; +CARV6.2551 PO; +CLOP75TA70 PO; +DIGO0.12 PO; +DOCU-265 PO; -DOCU-94 PO; -ENAL10TA12 PO; +ENAL1TAB47 PO; +GAB100C PO; +HYDR-4798 PO; +INSU100I54 SC; +INSU1INJ19 SC; -LEVO500T31 PO; +LEVO500T91 PO; +LORA-483 PO; +NYST-23 TOP; -ONDA-144 PO; +ONDA-188 PO; +PANC3600 PO; -PANT40T PO; +POTA1TAB64 PO; +ROSU5TAB24 PO; +SEMA2INJ2 SC; -TAM04C PO; +TAMS0.4C39 PO
--- NOTE | 2024-12-26 11:03 | ED.PDOC ---
HPI Comments 59-year-old male with a history of hypertension, diabetes, a full CABG, mi, and congestive heart failure, presents to the emergency department with a chief complaint of left-sided chest tightness. Patient states that he was sent to the emergency room by Dr. Dubon retail brand ambassador, for admission for a better workup and evaluation. Patient's EKG was noted to be 81 NSR with nonspecific T-wave changes. Patient denies any nausea, vomiting, diarrhea, abdominal pain, back pain, urinary symptoms, or any other associated factors, modifiers with this time. Chief Complaint: Chest Pain Time Seen by MD: 10:58 Primary Care Provider: ARTURO Reviewed Notes: Nurses Notes, Medications, Allergies Allergies: Coded Allergies: Penicillins (Verified Allergy, Severe, 01/23/21) Sulfa Antibiotics (Verified Allergy, Severe, 01/23/21) Clindamycin (Verified Allergy, Unknown, 08/24/22) Home Meds Active Scripts Levofloxacin Hemihydrate (LEVOFLOXACIN) 500 Mg Tab, 500 MG PO DAILY for 14 Days, #14 TAB Prov:ARTI ADEN DO 09/16/22 Reported Medications Carvedilol (Carvedilol) 6.25 Mg Tab, 1 TAB PO BID 09/11/22 Pancrelipase (Lipase-Protease- (CREON) 36,000 Unt Cap, 2 CAP PO TID 09/11/22 Gabapentin (Gabapentin) 100 Mg Cap, 1 CAP PO BID 09/11/22 Rosuvastatin Calcium (Rosuvastatin Calcium) 5 Mg Tab, 1 TAB PO DAILY 09/11/22 Digoxin (Digoxin) 125 Mcg Tab, 1 TAB PO DAILY 09/11/22 Insulin Glargine (Basaglar Kwikpen) 100 Unit/Ml Inj, 70 UNITS SC AM & HS 09/11/22 Insulin Lispro (Insulin Lispro Kwikpen) 100 Unit/Ml Inj, 30 UNIT SC TID 09/11/22 Tamsulosin Hcl (Tamsulosin Hcl) 0.4 Mg Cap, 1 CAP PO DAILY 09/11/22 Potassium Chloride (K-Tab) 8 Meq Tab, 1 TAB PO DAILY 09/11/22 Clopidogrel Bisulfate (CLOPIDOGREL) 75 Mg Tab, 1 TAB PO DAILY 09/11/22 Ondansetron HCl (Ondansetron Hydrochloride) 4 Mg Tab, 4 MG PO Q8HP PRN for NAUSEA / VOMITING 09/11/22 Docusate Sodium (Docusate Sodium) 100 Mg Cap, 1 CAP PO BID 09/11/22 Semaglutide (Ozempic) 2 Mg/1.5 Ml Inj, 0.25 MG SC Weekly 09/11/22 Enalapril Maleate (Enalapril Maleate) 10 Mg Tab, 1 TAB PO BID for HTN 09/11/22 Nystatin (Nystatin) 100,000 Unit/Gm Cre, 1 APPLIC TOP BID 09/11/22 Albuterol Sulfate (Albuterol Sulfate Hfa) 108 Mcg/Act Aer, 1 PUFF PO Q4H PRN for SHORTNESS OF BREATH 09/11/22 Loratadine (CLARITIN TABLET) 10 Mg Tb, 1 TAB PO DAILY 09/11/22 Hydrocodone-Acetaminophen (Hydrocodone Bitartrate/AC 10-325 mg) 1 Tab Tab, 1 TAB PO Q6HP PRN for Pain 09/11/22 Aspirin (Aspirin Low Dose) 81 Mg Tab, 1 TAB PO DAILY 09/10/22 Information Source: Patient Mode of Arrival: Wheelchair Severity: Moderate Timing: Other (Years) Duration: Intermittent Prehospital treatment: None Location: Chest (L) Radiation: No Radiation Quality: Sharp Cardiac Risk Factors: HTN, Diabetes PE Risk Factors: None History of: None Modifying Factors: Exertion Associated Signs and Symptoms: None Past Medical History PAST MEDICAL HISTORY: CHF, COPD, DM, HTN, [place] Surgical History: BKA, CABG Family History Family History: Reviewed,noncontributory to illness Social History Smoker: Non-Smoker Alcohol: Denies ETOH Use Drugs: Marijuana Lives In: Home Constitutional: denies: chills, diaphoresis, fatigue, fever, malaise, sweats, weakness, others EENTM: denies: blurred vision, double vision, ear bleeding, ear discharge, ear drainage, ear pain, ear ringing, eye pain, eye redness, hearing loss, mouth pain, mouth swelling, nasal discharge, nose bleeding, nose congestion, nose pain, photophobia, tearing, throat pain, throat swelling, voice changes, others Respiratory: denies: cough, hemoptysis, orthopnea, SOB at rest, shortness of breath, SOB with excertion, stridor, wheezing, others Cardiovascular: reports: chest pain; denies: dizzy spells, diaphoresis, Dyspnea on exertion, edema, irregular heart beat, left arm pain, lightheadedness, palpitations, PND, syncope, others Gastrointestinal: denies: abdomen distended, abdominal pain, blood streaked bowels, constipated, diarrhea, dysphagia, difficulty swallowing, hematemesis, melena, nausea, poor appetite, poor fluid intake, rectal bleeding, rectal pain, vomiting, others Genitourinary: denies: burning, dysuria, flank pain, frequency, hematuria, incontinence, penile discharge, penile sore, pain, testicle pain, testicle sw elling, urgency, others Neurological: denies: dizziness, fainting, headache, left sided numbness, left sided weakness, numbness, paresthesia, pre-existing deficit, right sided numbness, right sided weakness, seizure, speech problems, tingling, tremors, weakness, others Musculoskeletal: denies: back pain, gout, joint pain, joint swelling, muscle pain, muscle stiffness, neck pain, others Integumetry: denies: bruises, change in color, change in hair/nails, dryness, laceration, lesions, lumps, rash, wounds, others Allergic/Immunocompromised: denies: Difficulty Healing, Frequent Infections, Hives, Itching, others Hematologic/Lymphatic: denies: anemia, blood clots, easy bleeding, easy bruising, swollen glands, others Endocrine: denies: excessive hunger, excessive sweating, excessive thirst, excessive urination, flushing, intolerance to cold, intolerance to heat, unexplained weight gain, unexplained weight loss, others Psychiatric: denies: anxiety, bipolar disorder, depression, hopeless, panic disorder, schizophrenia, sleepless, suicidal, others All Other Systems: Reviewed and Negative Physical Exam General Appearance: Moderate Distress, Normal HEENT: Normal ENT Inspection, Pharynx Normal, TMs Normal Neck: Full Range of Motion, Non-Tender, Normal, Normal Inspection Respiratory: Chest Non-Tender, Lungs Clear, No Accessory Muscle Use, No Respiratory Distress, Normal Breath Sounds Cardiovascular: No Edema, No JVD, No Murmur, No Gallop, Normal Peripheral Pulses, Regular Rate/Rhythm Breast Exam: Deferred Gastrointestinal: No Organomegaly, Non Tender, No Pulsatile Mass, Normal Bowel Sounds, Soft Genitalia: Deferred Pelvic: Deferred Rectal: Deferred Extremities: No calf tenderness, Normal capillary refill, Non-tender, No pedal edema, Other (Old left above knee amputation) Musculoskeletal : Apperance: Normal Neurologic: Alert, 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 Was a procedure done?: No CP Differential Dx Differential Diagnosis: A-fib, A-Flutter, Angina, Anxiety / Panic Attack, Atrial Dysrhythmia, Electrolyte Disorder, Heart Failure, Pulmonary Embolus, PVC's Differential Diagnosis: HTN Encephalopathy Differential Diagnosis: Angina, Chest Wall Pain, Cholelithiasis, Esophageal reflux/spasm, Gastritis, Pericarditis, Pulmonary Embolus X-Ray, Labs, Meds, VS Vital Signs Date Time Temp Pulse Resp B/P (MAP) Pulse Ox O2 Delivery O2 Flow Rate FiO2 12/26/24 11:35 79 12/26/24 10:32 81 12/26/24 10:22 98.1 79 18 139/57 97 98.1 Lab Test 12/26/24 11:32 12/26/24 10:45 Range/Units White Blood Count 10.2 4.4-10.8 10^3/uL Red Blood Count 4.09 L 4.5-5.90 10^6/uL Hemoglobin 12.2 L 13.5-17.5 g/dL Hematocrit 36.3 L 41.0-53.0 % Mean Corpuscular Volume 88.7 80.0-100.0 fL Mean Corpuscular Hemoglobin 29.9 28.0-32.0 pg Mean Corpuscular Hemoglobin Concent 33.7 32.0-36.0 g/dL Red Cell Distribution Width 14.0 11.8-14.3 % Platelet Count 275 140-450 10^3/uL Mean Platelet Volume 7.3 6.9-10.8 fL Neutrophils (%) (Auto) 71.0 37.0-80.0 % Lymphocytes (%) (Auto) 18.2 10.0-50.0 % Monocytes (%) (Auto) 8.4 0.0-12.0 % Eosinophils (%) (Auto) 1.8 0.0-7.0 % Basophils (%) (Auto) 0.6 0.0-2.0 % Neutrophils # (Auto) 7.3 1.6-8.6 10 ^3/uL Lymphocytes # (Auto) 1.9 0.4-5.4 10 ^3/uL Monocytes # (Auto) 0.9 0-1.3 10 ^3/uL Eosinophils # (Auto) 0.2 0-0.8 10 ^3/uL Basophils # (Auto) 0.1 0-0.2 10 ^3/uL Nucleated Red Blood Cells 0.0 % Prothrombin Time 10.3 9.3-11.8 sec Prothrombin Time INR 0.97 0.9-1.15 Activated Partial Thromboplast Time 26.3 24.5-34.5 SEC Sodium Level 133 L 136-145 mmol/L Potassium Level 4.3 3.5-5.1 mmol/L Chloride Level 98 98-107 mmol/L Carbon Dioxide Level 22 20-31 mmol/L Anion Gap 13 5-15 Blood Urea Nitrogen 39 H 9-23 mg/dL Creatinine 2.90 H 0.700-1.30 mg/dL Glomerular Filtration Rate Calc 24 >90 mL/min BUN/Creatinine Ratio 13.4 10.0-20.0 Serum Glucose 336 H 74-106 mg/dL Calcium Level 9.1 8.7-10.4 mg/dL Troponin I High Sensitivity Pending 27 </=54 ng/L Patient alert. Complaining of chest pain. Vitals stable. Has a risk factors for coronary artery disease. Blood sugar elevated. Kidney function elevated. WBC within normal limits. His retail brand ambassador center the ER for possible catheterization. EKG reviewed does show old changes. Explained to the patient. Continue monitoring. PATIENT: KEVIN WITT ACCT: [id number] UNIT: [id number] : 1965 LOC: ER ROOM / BED: / AGE / SEX: 59 / M ADM STATUS: REG ER SERVICE 1119 ORDERING PHYSICIAN: NICKIE LINARES MD PROCEDURE(s): CXRP - CHEST PORTABLE REASON: sob ORDER NUMBER(s): [id number], ACCESSION NUMBER(s): [id number] XY CHEST PORTABLE, HISTORY: sob COMPARISON: XY CHEST PORTABLE on DOS: 09/10/22 XY CHEST PORTABLE on DOS: 09/10/22 TECHNICAL DATA: 1 view of the chest was obtained. FINDINGS: Lines and tubes: None Cardiomediastinal silhouette: normal Pulmonary vasculature: normal Lung expansion: low Lung airspace: normal Lung interstitium: normal Pleura: normal Pneumothorax: no Bones: Unremarkable Other: no IMPRESSION: No acute intrathoracic abnormality. Time of 1ST Reevaluation: 11:31 Reevaluation 1ST: Unchanged Patient Education/Counseling: Diagnosis, Treatment, Need For Follow Up Family Education/Counseling: No Family Present SEPSIS Sepsis Screen Date sepsis recognized/suspect: Dec 26, 2024 Time Sepsis recognized/suspect: 1024 Recent Procedure: No On Antibiotic Therapy: No Respiratory Rate >20: No Heart Rate >90: No Temp<36 C (96.8 F) or >38.3 C: No SBP <90 or MAP <65 mmHG: No New Acute Mental Status Change: No Is the patient on CPAP, BIPAP,: No Physician Orders Electrocardigram (12/26/24 10:26) Electrocardigram (12/26/24 11:26) Electrocardigram (12/26/24 13:26) Troponin-I Hs (12/26/24 11:26) Troponin-I Hs (12/26/24 13:26) Chest Portable (12/26/24 11:19) Urinalysis (12/26/24 11:19) Vital Signs Date Time Temp Pulse Resp B/P (MAP) Pulse Ox O2 Delivery O2 Flow Rate FiO2 12/26/24 11:35 79 12/26/24 10:32 81 12/26/24 10:22 98.1 79 18 139/57 97 98.1 Laboratory Tests Test 12/26/24 11:32 White Blood Count 10.2 10^3/uL (4.4-10.8) Departure 1 Departure Time of Disposition: 12:36 Impression: Primary Impression: Chest pain of unknown etiology Additional Impressions: Chronic kidney disease Qualified Codes: N18.9 - Chronic kidney disease, unspecified Uncontrolled diabetes mellitus Qualified Codes: E13.65 - Other specified diabetes mellitus with hyperglycemia Disposition: ADMITTED INPATIENT Admit to: Med Surg Condition: Guarded Critical Care Note Critical Care Time?: Yes (90 min-critical care time only) Stability Stability form required: No Heart Score Heart Score: Heart Score Response (Comments) Value History Slightly Suspicious 0 EKG Normal 0 Age 45-64 1 Risk Factors >3 or Hx ASHD 2 Troponin Normal limit 0 Total 3 I personally scribed for NICKIE LINARES MD ([email or web address]) on 12/26/24 at 11:03. Electronically submitted by Aj Banegas ([email or web address]). I personally scribed for NICKIE LINARES MD ([email or web address]) on 12/26/24 at 12:07. Electronically submitted by Aj Banegas ([email or web address]). NICKIE LINARES MD Dec 26, 2024 11:03
[2024-12-26 11:58] LABS: Hematocrit 36.3 % (41.0-53.0); Hemoglobin 12.2 g/dL (13.5-17.5); Mean Corpuscular Hemoglobin 29.9 pg (28.0-32.0); Mean Corpuscular Volume 88.7 fL (80.0-100.0); Nucleated Red Blood Cells % 0.0 %
[2024-12-26 12:03] LABS: Chloride 98 mmol/L (98-107); Potassium 4.3 mmol/L (3.5-5.1)
[2024-12-26 12:04] LABS: Anion Gap 13 (5-15); Calcium 9.1 mg/dL (8.7-10.4); Carbon Dioxide 22 mmol/L (20-31)
--- NOTE | 2024-12-26 12:05 | DVH ---
XY CHEST PORTABLE, HISTORY: sob COMPARISON: XY CHEST PORTABLE on DOS: 09/10/22 XY CHEST PORTABLE on DOS: 09/10/22 TECHNICAL DATA: 1 view of the chest was obtained. FINDINGS: Lines and tubes: None Cardiomediastinal silhouette: normal Pulmonary vasculature: normal Lung expansion: low Lung airspace: normal Lung interstitium: normal Pleura: normal Pneumothorax: no Bones: Unremarkable Other: no IMPRESSION: No acute intrathoracic abnormality.
[2024-12-26 12:09] LABS: BUN/Creatinine Ratio 13.4 (10.0-20.0)
[2024-12-26 12:11] LABS: Blood Urea Nitrogen 39 mg/dL (9-23); Glucose 336 mg/dL (74-106); Sodium 133 mmol/L (136-145)
[2024-12-26 12:13] LABS: INR 0.97 (0.9-1.15); Partial Thromboplastin Time 26.3 SEC (24.5-34.5); Prothrombin Time 10.3 sec (9.3-11.8)
[2024-12-26] MEDS ORDERED: NITROGLYCERIN 0.4 MG SL TAB SL PRN (16:00)
[2024-12-26] MEDS ORDERED: MORPHINE SULFATE INJ 2 MG/ml SYRG IV PRN (16:00)
[2024-12-26] MEDS ORDERED: DOCUSATE SOD 100 MG CAP PO PRN (16:00)
[2024-12-26] MEDS ORDERED: ACETAMINOPHEN 325 MG TAB PO PRN (16:00)
--- NOTE | 2024-12-26 16:07 | DVHHP2 ---
Admitting Diagnosis: Chest pain rule out ACS History of Present Illness 59-year-old male with a history of hypertension, diabetes, a full CABG, mi, and congestive heart failure, presents to the emergency department with a chief complaint of left-sided chest tightness. Patient states that he was sent to the emergency room by Dr. 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 Patient's EKG was noted to be 81 NSR with nonspecific T-wave ch anges. Patient denies any nausea, vomiting, diarrhea, abdominal pain, back pain, urinary symptoms, or any other associated factors, modifiers with this time. PAST MEDICAL HISTORY: CHF, COPD, DM, HTN, [place] Surgical History: BKA, CABG Family History Family History: Reviewed,noncontributory to illness Social History Smoker: Non-Smoker Alcohol: Denies ETOH Use Drugs: Marijuana Lives In: Home Patient Family History: Diabetes mellitus G8 MOTHER G8 FATHER FH: Parkinson's disease G8 FATHER Factor V deficiency G8 FATHER Fatty liver G8 MOTHER Allergies: Coded Allergies: Penicillins (Verified Allergy, Severe, 01/23/21) Sulfa Antibiotics (Verified Allergy, Severe, 01/23/21) Clindamycin (Verified Allergy, Unknown, 08/24/22) Home Meds Active Scripts Levofloxacin Hemihydrate (LEVOFLOXACIN) 500 Mg Tab, 500 MG PO DAILY for 14 Days, #14 TAB Prov:ADENARTI DO 09/16/22 Reported Medications Carvedilol (Carvedilol) 6.25 Mg Tab, 1 TAB PO BID 09/11/22 Pancrelipase (Lipase-Protease- (CREON) 36,000 Unt Cap, 2 CAP PO TID 09/11/22 Gabapentin (Gabapentin) 100 Mg Cap, 1 CAP PO BID 09/11/22 Rosuvastatin Calcium (Rosuvastatin Calcium) 5 Mg Tab, 1 TAB PO DAILY 09/11/22 Digoxin (Digoxin) 125 Mcg Tab, 1 TAB PO DAILY 09/11/22 Insulin Glargine (Basaglar Kwikpen) 100 Unit/Ml Inj, 70 UNITS SC AM & HS 09/11/22 Insulin Lispro (Insulin Lispro Kwikpen) 100 Unit/Ml Inj, 30 UNIT SC TID 09/11/22 Tamsulosin Hcl (Tamsulosin Hcl) 0.4 Mg Cap, 1 CAP PO DAILY 09/11/22 Potassium Chloride (K-Tab) 8 Meq Tab, 1 TAB PO DAILY 09/11/22 Clopidogrel Bisulfate (CLOPIDOGREL) 75 Mg Tab, 1 TAB PO DAILY 09/11/22 Ondansetron HCl (Ondansetron Hydrochloride) 4 Mg Tab, 4 MG PO Q8HP PRN for NAUSEA / VOMITING 09/11/22 Docusate Sodium (Docusate Sodium) 100 Mg Cap, 1 CAP PO BID 09/11/22 Semaglutide (Ozempic) 2 Mg/1.5 Ml Inj, 0.25 MG SC Weekly 09/11/22 Enalapril Maleate (Enalapril Maleate) 10 Mg Tab, 1 TAB PO BID for HTN 09/11/22 Nystatin (Nystatin) 100,000 Unit/Gm Cre, 1 APPLIC TOP BID 09/11/22 Albuterol Sulfate (Albuterol Sulfate Hfa) 108 Mcg/Act Aer, 1 PUFF PO Q4H PRN for SHORTNESS OF BREATH 09/11/22 Loratadine (CLARITIN TABLET) 10 Mg Tb, 1 TAB PO DAILY 09/11/22 Hydrocodone-Acetaminophen (Hydrocodone Bitartrate/AC 10-325 mg) 1 Tab Tab, 1 TAB PO Q6HP PRN for Pain 09/11/22 Aspirin (Aspirin Low Dose) 81 Mg Tab, 1 TAB PO DAILY 09/10/22 Current Medications Current Medications Medications (Trade) Dose Ordered Sig/Prashant Route PRN Reason Start Time Stop Time Status Last Admin Sodium Chloride (Saline Lock Ns) 10 ml Q8HR IV 12/26/24 22:00 UNV Docusate Sodium (Colace Capsule) 100 mg BIDPRN PRN PO FOR CONSTIPATION 12/26/24 16:00 UNV Acetaminophen (Tylenol Tablet) 650 mg Q6HP PRN PO PAIN SCALE 1-3 OR TEMP>100.4 12/26/24 16:00 UNV Acetaminophen/ Hydrocodone Bitart (Warren 5/325MG Tab) 1 tab Q4HP PRN PO MODERATE PAIN (4-6 PAIN SCALE) 12/26/24 16:00 UNV Ondansetron HCl (Zofran) 4 mg Q4HP PRN IV NAUSEA / VOMITING 12/26/24 16:00 UNV Nitroglycerin (Ntrostat Sublingual) 0.4 mg Q5MINP PRN SL FOR CHEST PAIN 12/26/24 16:00 UNV Morphine Sulfate 2 mg Q30M PRN IV FOR CHEST PAIN 12/26/24 16:00 UNV Aspirin (Ecotrin Enteric Coated Tablet) 81 mg DAILY PO 12/27/24 10:00 UNV Clopidogrel Bisulfate (Plavix) 75 mg DAILY PO 12/27/24 10:00 UNV Digoxin (Lanoxin Tablet) 0.125 mg DAILY PO 12/27/24 10:00 UNV Docusate Sodium (Colace Capsule) 100 mg BID PO 12/26/24 22:00 UNV Enalapril Maleate (Vasotec Tablet) 10 mg BID PO 12/26/24 22:00 UNV Gabapentin (Neurontin Capsule) 100 mg BID PO 12/26/24 22:00 UNV Levofloxacin (Levaquin Tablet) 500 mg DAILY PO 12/27/24 10:00 UNV Tamsulosin HCl (Flomax) 0.4 mg DAILY PO 12/27/24 10:00 UNV Patient Own Medication 1 tab BID PO 12/26/24 22:00 UNV Patient Own Medication 70 units AM & HS SC 12/26/24 16:00 UNV Patient Own Medication 30 unit TID SC 12/26/24 22:00 UNV Patient Own Medication 2 cap TID PO 12/26/24 22:00 UNV Patient Own Medication 1 tab DAILY PO 12/27/24 10:00 UNV Vital Signs Vital Signs Date Time Temp Pulse Resp B/P (MAP) Pulse Ox O2 Delivery O2 Flow Rate FiO2 12/26/24 11:35 79 12/26/24 10:22 98.1 18 139/57 97 98.1 Physical Exam Generally-59 years old male, overweight, sitting on chair. Mild distress HEENT-atraumatic normocephalic Heart-regular rate and rhythm Lungs decreased breath sounds bilaterally Abdomen soft nontender nondistended Musculoskeletal-pedal edema no cyanosis Neuro-AO x3, no focal deficits SEPSIS Sepsis Screen Date sepsis recognized/suspect: Dec 26, 2024 Time Sepsis recognized/suspect: 1024 Recent Procedure: No On Antibiotic Therapy: No Respiratory Rate >20: No Heart Rate >90: No Temp<36 C (96.8 F) or >38.3 C: No SBP <90 or MAP <65 mmHG: No New Acute Mental Status Change: No Is the patient on CPAP, BIPAP,: No Physician Orders Electrocardigram (12/26/24 10:26) Electrocardigram (12/26/24 11:26) Electrocardigram (12/26/24 13:26) Chest Portable (12/26/24 11:19) Urinalysis (12/26/24 11:19) Admit (12/26/24 15:53) Code Status (12/26/24:53) Vital Signs .PER UNIT PROTOCOL (12/26/24:53) Review Orders With Adm.Md (12/26/24 15:53) Encourage Activity As Tolerate (12/26/24 15:53) Sodium Chloride Lock (Saline Lock Ns) (12/26/24 22:00) Docusate Sodium Capsule (Colace Capsule) (12/26/24 16:00) Acetaminophen Tablet (Tylenol Tablet) (12/26/24 16:00) Notify Md Of Changes From Base (12/26/24 15:53) Advance Directive (12/26/24:53) Patient Condition (12/26/24:53) Allergies (12/26/24 15:53) Hydrocodone-Acet 5/325mg Tab (Warren 5/32 (12/26/24 16:00) Ondansetron Hcl (Zofran) (12/26/24 16:00) Nitroglycerin Sublingual (Ntrostat Subli (12/26/24 16:00) Morphine Sulfate Injection (12/26/24 16:00) Stat Ekg For Chest Pain (12/26/24 15:53) Notify Md Of Changes From Base (12/26/24 15:53) Criminal Justice Instructor For 24 Hours (12/26/24 15:53) Emergency Dysrhythmia Protocol (12/26/24:53) Rhythm Strips Once Every Shift (12/26/24 15:53) Oxygen By Nasal Cannula (12/26/24 15:53) Aspirin Enteric Coated Tablet (Ecotrin E (12/27/24 10:00) Clopidogrel Bisulfate (Plavix) (12/27/24 10:00) Digoxin Tablet (Lanoxin Tablet) (12/27/24 10:00) Docusate Sodium Capsule (Colace Capsule) (12/26/24 22:00) Enalapril Tablet (Vasotec Tablet) (8/22/25 22:00) Gabapentin Capsule (Neurontin Capsule) (12/26/24 22:00) Levofloxacin Tablet (Levaquin Tablet) (12/27/24 10:00) Tamsulosin Hydrochloride (Flomax) (12/27/24 10:00) (Nf) Carvedilol (12/26/24 22:00) (Nf) Insulin Glargine (Basaglar Kwikpen) (12/26/24 16:00) (Nf) Insulin Lispro (Insulin Lispro Kwik (12/26/24 22:00) (Nf) Pancrelipase (Lipase-Protease- (Cre (12/26/24 22:00) (Nf) Rosuvastatin Calcium (12/27/24 10:00) Cardiac Diet-2gna,Lofat,Lochol (12/26/24 Dinner) Comprehensive Metabolic Panel (12/27/24 05:00) Comprehensive Metabolic Panel (12/28/24 05:00) Comprehensive Metabolic Panel (12/29/24 05:00) Comprehensive Metabolic Panel (12/30/24 05:00) Comprehensive Metabolic Panel (12/31/24 05:00) Complete Blood Count (12/27/24 05:00) Complete Blood Count (12/28/24 05:00) Complete Blood Count (12/29/24 05:00) Complete Blood Count (12/30/24 05:00) Complete Blood Count (12/31/24 05:00) * Cardiology Consult (12/26/24 15:59) *[facility] (12/26/24 15:59) Npo After Midnight (12/26/24 16:02) Npo (Nothing By Mouth) Diet (12/27/24 Breakfast) Vital Signs Date Time Temp Pulse Resp B/P (MAP) Pulse Ox O2 Delivery O2 Flow Rate FiO2 12/26/24 11:35 79 12/26/24 10:32 81 12/26/24 10:22 98.1 79 18 139/57 97 98.1 Laboratory Tests Test 12/26/24 11:32 White Blood Count 10.2 10^3/uL (4.4-10.8) Results Labs Test 12/26/24 13:50 12/26/24 11:32 Range/Units Troponin I High Sensitivity 23 </=54 ng/L White Blood Count 10.2 4.4-10.8 10^3/uL Red Blood Count 4.09 L 4.5-5.90 10^6/uL Hemoglobin 12.2 L 13.5-17.5 g/dL Hematocrit 36.3 L 41.0-53.0 % Mean Corpuscular Volume 88.7 80.0-100.0 fL Mean Corpuscular Hemoglobin 29.9 28.0-32.0 pg Mean Corpuscular Hemoglobin Concent 33.7 32.0-36.0 g/dL Red Cell Distribution Width 14.0 11.8-14.3 % Platelet Count 275 140-450 10^3/uL Mean Platelet Volume 7.3 6.9-10.8 fL Neutrophils (%) (Auto) 71.0 37.0-80.0 % Lymphocytes (%) (Auto) 18.2 10.0-50.0 % Monocytes (%) (Auto) 8.4 0.0-12.0 % Eosinophils (%) (Auto) 1.8 0.0-7.0 % Basophils (%) (Auto) 0.6 0.0-2.0 % Neutrophils # (Auto) 7.3 1.6-8.6 10 ^3/uL Lymphocytes # (Auto) 1.9 0.4-5.4 10 ^3/uL Monocytes # (Auto) 0.9 0-1.3 10 ^3/uL Eosinophils # (Auto) 0.2 0-0.8 10 ^3/uL Basophils # (Auto) 0.1 0-0.2 10 ^3/uL Nucleated Red Blood Cells 0.0 % Prothrombin Time 10.3 9.3-11.8 sec Prothrombin Time INR 0.97 0.9-1.15 Activated Partial Thromboplast Time 26.3 24.5-34.5 SEC Sodium Level 133 L 136-145 mmol/L Potassium Level 4.3 3.5-5.1 mmol/L Chloride Level 98 98-107 mmol/L Carbon Dioxide Level 22 20-31 mmol/L Anion Gap 13 5-15 Blood Urea Nitrogen 39 H 9-23 mg/dL Creatinine 2.90 H 0.700-1.30 mg/dL Glomerular Filtration Rate Calc 24 >90 mL/min BUN/Creatinine Ratio 13.4 10.0-20.0 Serum Glucose 336 H 74-106 mg/dL Calcium Level 9.1 8.7-10.4 mg/dL Primary Diagnosis Chest pain rule out ACS MARLON on CKD Plan Troponin negative x2 Chest pain intermittent Cardiac diet for now NPO after midnight for possible cardiac catheterization Consult likely right-sided Consult Nephrology Resume home meds Full code Heparin for DVT prophylaxis PPI for GI prophylaxis Plan discussed with: Patient Date of Service: Dec 26, 2024 Billing Provider: LASHA KOENIG MD Common Visit Codes: [id number] INP/OBS CARE (MOD) LASHA KOENIG MD Dec 26, 2024 16:07
[2024-12-26] MEDS: InsuLIN REG 1unit/0.01ml Soln (100units/ml) IV ONE (16:30)
[2024-12-26 16:45] VITALS: PULSE 77; RESP 14; O2SAT 99
[2024-12-26] MEDS: SODIUM CHLORIDE 0.9% 1,000 ML IV ONE (17:08)
--- NOTE | 2024-12-26 19:21 | DVHINCON2 ---
Date of service: Dec 26, 2024 History of Present Illness HPI Patient is a 59-year-old gentleman who presented to the hospital secondary to worsening heart failure. He follows with cardiology regularly and ejection fraction has dropped from 60% in 2021 to 30 to 35% in November 2024. He does have advanced CKD. He had been offered left heart catheterization for further evaluation of coronaries (does have history of coronary artery disease/CABG) but as the kidney function had worsened, suggestion was inpatient management and rehydration prior to cardiac catheterization. Patient also had been experiencing shortness of breath. Does have baseline poor functional capacity and is wheelchair-bound, has had left below-knee amputation and does have chronic wound to the right lower extremity. Goes to wound care as outpatient. Follows with Nephrology as outpatient regularly. Home Meds Active Scripts Levofloxacin Hemihydrate (LEVOFLOXACIN) 500 Mg Tab, 500 MG PO DAILY for 14 Days, #14 TAB Prov:ARTI ADEN DO 09/16/22 Reported Medications Carvedilol (Carvedilol) 6.25 Mg Tab, 1 TAB PO BID 09/11/22 Pancrelipase (Lipase-Protease- (CREON) 36,000 Unt Cap, 2 CAP PO TID 09/11/22 Gabapentin (Gabapentin) 100 Mg Cap, 1 CAP PO BID 09/11/22 Rosuvastatin Calcium (Rosuvastatin Calcium) 5 Mg Tab, 1 TAB PO DAILY 09/11/22 Digoxin (Digoxin) 125 Mcg Tab, 1 TAB PO DAILY 09/11/22 Insulin Glargine (Basaglar Kwikpen) 100 Unit/Ml Inj, 70 UNITS SC AM & HS 09/11/22 Insulin Lispro (Insulin Lispro Kwikpen) 100 Unit/Ml Inj, 30 UNIT SC TID 09/11/22 Tamsulosin Hcl (Tamsulosin Hcl) 0.4 Mg Cap, 1 CAP PO DAILY 09/11/22 Potassium Chloride (K-Tab) 8 Meq Tab, 1 TAB PO DAILY 09/11/22 Clopidogrel Bisulfate (CLOPIDOGREL) 75 Mg Tab, 1 TAB PO DAILY 09/11/22 Ondansetron HCl (Ondansetron Hydrochloride) 4 Mg Tab, 4 MG PO Q8HP PRN for NAUSEA / VOMITING 09/11/22 Docusate Sodium (Docusate Sodium) 100 Mg Cap, 1 CAP PO BID 09/11/22 Semaglutide (Ozempic) 2 Mg/1.5 Ml Inj, 0.25 MG SC Weekly 09/11/22 Enalapril Maleate (Enalapril Maleate) 10 Mg Tab, 1 TAB PO BID for HTN 09/11/22 Nystatin (Nystatin) 100,000 Unit/Gm Cre, 1 APPLIC TOP BID 09/11/22 Albuterol Sulfate (Albuterol Sulfate Hfa) 108 Mcg/Act Aer, 1 PUFF PO Q4H PRN for SHORTNESS OF BREATH 09/11/22 Loratadine (CLARITIN TABLET) 10 Mg Tb, 1 TAB PO DAILY 09/11/22 Hydrocodone-Acetaminophen (Hydrocodone Bitartrate/AC 10-325 mg) 1 Tab Tab, 1 TAB PO Q6HP PRN for Pain 09/11/22 Aspirin (Aspirin Low Dose) 81 Mg Tab, 1 TAB PO DAILY 09/10/22 Past Medical History Others Past medical history includes coronary artery disease and status post CABG, peripheral artery disease and status post peripheral angioplasty, diabetes mellitus, diabetic neuropathy, CKD, status post left below-knee amputation, chronic right foot wound/cellulitis and history of foot osteomyelitis (right side), asthma/COPD, BPH, morbid obesity, SVT/NSVT, recurrent UTIs and BPH. He is wheelchair-bound. Allergic to penicillin/sulfa/clindamycin He is ex-smoker. Occasionally uses marijuana. Does drink alcohol socially. Patient Family History: Diabetes mellitus G8 MOTHER G8 FATHER FH: Parkinson's disease G8 FATHER Factor V deficiency G8 FATHER Fatty liver G8 MOTHER Smoker: Quit Alocohol: Rare Drugs: None Review of Systems Constitutional: Weakness Pulmonary/Respiratory: Dyspnea Cardiovascular: Orthopnea All Other Systems Fourteen point review of system was performed. Relevant findings as per above and as per HPI. Otherwise negative. H&P Exam Vital Signs Vital Signs Date Time Temp Pulse Resp B/P (MAP) Pulse Ox O2 Delivery O2 Flow Rate FiO2 12/26/24 16:45 77 14 99 Room Air* 0 21 12/26/24 16:45 97.9 119/58 (78) 97.9 General Appeara: Well developed Head Exam: Normal inspection Eye Exam: bilateral eye PERRL Nasal Exam: Normal inspection Mouth: Normal Inspection Pulmonary/Respiratory: Lungs clear Cardiovascular/Chest: Regular rate, Systolic murmur Peripheral Pulses: 2+ carotid (R), 2+ carotid (L) Abdominal Exam: Normal bowel sounds, Soft Neuro/Mental St: Alert, Oriented Appearance: Appropriate appearance Eye contact/ Speech: Cooperative Labs/Xrays Labs Test 12/26/24 16:13 12/26/24 13:50 12/26/24 11:32 Range/Units POC Glucose 245 H 70-106 mg/dl Troponin I High Sensitivity 23 </=54 ng/L White Blood Count 10.2 4.4-10.8 10^3/uL Red Blood Count 4.09 L 4.5-5.90 10^6/uL Hemoglobin 12.2 L 13.5-17.5 g/dL Hematocrit 36.3 L 41.0-53.0 % Mean Corpuscular Volume 88.7 80.0-100.0 fL Mean Corpuscular Hemoglobin 29.9 28.0-32.0 pg Mean Corpuscular Hemoglobin Concent 33.7 32.0-36.0 g/dL Red Cell Distribution Width 14.0 11.8-14.3 % Platelet Count 275 140-450 10^3/uL Mean Platelet Volume 7.3 6.9-10.8 fL Neutrophils (%) (Auto) 71.0 37.0-80.0 % Lymphocytes (%) (Auto) 18.2 10.0-50.0 % Monocytes (%) (Auto) 8.4 0.0-12.0 % Eosinophils (%) (Auto) 1.8 0.0-7.0 % Basophils (%) (Auto) 0.6 0.0-2.0 % Neutrophils # (Auto) 7.3 1.6-8.6 10 ^3/uL Lymphocytes # (Auto) 1.9 0.4-5.4 10 ^3/uL Monocytes # (Auto) 0.9 0-1.3 10 ^3/uL Eosinophils # (Auto) 0.2 0-0.8 10 ^3/uL Basophils # (Auto) 0.1 0-0.2 10 ^3/uL Nucleated Red Blood Cells 0.0 % Prothrombin Time 10.3 9.3-11.8 sec Prothrombin Time INR 0.97 0.9-1.15 Activated Partial Thromboplast Time 26.3 24.5-34.5 SEC Sodium Level 133 L 136-145 mmol/L Potassium Level 4.3 3.5-5.1 mmol/L Chloride Level 98 98-107 mmol/L Carbon Dioxide Level 22 20-31 mmol/L Anion Gap 13 5-15 Blood Urea Nitrogen 39 H 9-23 mg/dL Creatinine 2.90 H 0.700-1.30 mg/dL Glomerular Filtration Rate Calc 24 >90 mL/min BUN/Creatinine Ratio 13.4 10.0-20.0 Serum Glucose 336 H 74-106 mg/dL Calcium Level 9.1 8.7-10.4 mg/dL Assessment/Plan Plan Patient is a 59-year-old gentleman who presented to the hospital secondary to worsening heart failure. He follows with cardiology regularly and ejection fraction has dropped from 60% in 2021 to 30 to 35% in November 2024. He does have advanced CKD. He had been offered left heart catheterization for further evaluation of coronaries (does have history of coronary artery disease/CABG) but as the kidney function had worsened, suggestion was inpatient management and rehydration prior to cardiac catheterization. Patient also had been experiencing shortness of breath. Does have baseline poor functional capacity and is wheelchair-bound, has had left below-knee amputation and does have chronic wound to the right lower extremity. Goes to wound care as outpatient. Follows with Nephrology as outpatient regularly. Not in acute distress. Sitting in bed. No JVD. Mucosa is pink and wet. No carotid bruit. Lungs are clear to auscultation. Not using accessory muscles of breathing. Cardiac: Regular, no thrill/gallop. Abdomen is soft and obese. Bowel sound is positive. Status post left below-knee amputation. Chronic wound to the right lower extremities present. Past medical history includes coronary artery disease and status post CABG, peripheral artery disease and status post peripheral angioplasty, diabetes mellitus, diabetic neuropathy, CKD, status post left below-knee amputation, chronic right foot wound/cellulitis and history of foot osteomyelitis (right side), asthma/COPD, BPH, morbid obesity, SVT/NSVT, recurrent UTIs and BPH. He is wheelchair-bound. Allergic to penicillin/sulfa/clindamycin He is ex-smoker. Occasionally uses marijuana. Does drink alcohol socially. Echocardiogram of March 29, 2022 had revealed mild concentric left ventricular hypertrophy, ejection fraction of 60-65% and mild biatrial enlargement Echocardiogram of April 24, 2024 had revealed concentric left ventricular hypertrophy, ejection fraction of 45-50%, anteroseptal hypokinesia, moderate left atrial enlargement, mild mitral annular calcification, mild MR/TR and right ventricular systolic pressure of less than 35 mm Hg Echocardiogram of December 02, 2024 (performed in the office) revealed concentric left ventricular hypertrophy, ejection fraction of 30-35%, pseudo normal LV filling, mild biatrial enlargement, mild right ventricular enlargement, mild MR/TR and right ventricular systolic pressure of 45 mm Hg Nuclear stress test of February 28, 2024 (performed in [facility]) reported no ischemia and dilated left ventricle Chest x-ray revealed: IMPRESSION: No acute intrathoracic abnormality. Telemetry reveals sinus rhythm Patient is a 59-year-old gentleman who presented with worsening left ventricular systolic function. He does have heart failure. Does have baseline history of coronary artery disease and has had CABG years ago. He also has advanced CKD. Comorbidities include peripheral artery disease and chronic foot infection. Worsening systolic heart failure CKD Peripheral artery disease Coronary artery disease, status post CABG Ischemic cardiomyopathy Diabetes mellitus Diabetic neuropathy Peripheral artery disease, status post peripheral angioplasty History of foot osteomyelitis Chronic leg infection Cardiac suggestion for management: Manage on telemetry Follow-up electrolytes and kidney function tests and correct abnormalities For now, hold diuresis Fluid resuscitation, gentle Echocardiogram Hemoglobin A1c Nephrology, risk stratification prior to cardiac catheterization (talked to Dr Jimenez) Tentative left heart catheterization on Sunday afternoon Light breakfast, Sunday and then NPO except meds Further evaluation and management depends on the above and clinical course Thank you for consultation A total of 55 minutes was spent reviewing the patient record, examining the patient, making a diagnostic and therapeutic plan, discussing this plan with medical personnel, following up on diagnostic studies and following the patient for clinical stability excluding any and all procedures. At least 50% of this time was spent in direct, [id number] contact. Thank you for allowing me to participate in this patient's care. Further recommendations will depend on patient's clinical course. Please do not hesitate to contact me if you have any questions or concerns. This medical document was created using electronic medical record system with [employer] dictation system. Although this document has been carefully reviewed, there may still be some phonetic and typographical errors. These areas are purely typographical due to the imperfection of the software programs, and do not reflect any compromise in the patient's medical care. Plan discussed with: Patient, Other (nurse) WAI LAGOS MD Dec 26, 2024 19:21
[2024-12-26 21:27] LABS: Hematocrit 34.7 % (41.0-53.0); Hemoglobin 11.7 g/dL (13.5-17.5); Mean Corpuscular Hemoglobin 30.0 pg (28.0-32.0); Mean Corpuscular Volume 89.0 fL (80.0-100.0); Nucleated Red Blood Cells % 0.1 %
[2024-12-26 21:40] LABS: Alanine Aminotransferase 19 U/L (7-40); Albumin 4.2 g/dL (3.2-4.8); Alkaline Phosphatase 98 U/L (46-116); Anion Gap 12 (5-15); BUN/Creatinine Ratio 13.2 (10.0-20.0); Calcium 8.8 mg/dL (8.7-10.4); Carbon Dioxide 22 mmol/L (20-31); Chloride 101 mmol/L (98-107); Magnesium 2.3 mg/dL (1.6-2.6); Potassium 4.1 mmol/L (3.5-5.1); Total Protein 7.1 g/dL (5.7-8.2)
[2024-12-26 21:41] LABS: Bilirubin, Total 0.3 mg/dL (0.2-1.0)
[2024-12-26 21:43] LABS: INR 0.97 (0.9-1.15); Partial Thromboplastin Time 24.7 SEC (24.5-34.5); Prothrombin Time 10.3 sec (9.3-11.8)
[2024-12-26] MEDS ORDERED: ENALAPRIL MALEATE 10 MG TAB PO SCH (22:00)
[2024-12-26] MEDS ORDERED: DOCUSATE SOD 100 MG CAP PO SCH (22:00)
[2024-12-26] MEDS ORDERED: PANCRELIPASE PO SCH (22:00)
[2024-12-26 22:03] LABS: Blood Urea Nitrogen 40 mg/dL (9-23); Glucose 183 mg/dL (74-106); Sodium 135 mmol/L (136-145)
[2024-12-26 22:40] LABS: Urine Budding Yeast MODERATE /hpf (None Seen); Urine Protein, UAD TRACE (Negative)
[2024-12-26] MEDS: SODIUM CHLOR 0.9% PF (SALINE LOCK) 10ML VIAL/SYR IV SCH (23:24)
[2024-12-27] MEDS: GABAPENTIN 100 MG CAP PO SCH (00:27)
[2024-12-27] MEDS: levoFLOXacin 500 MG TAB PO ONE (00:28)
[2024-12-27] MEDS: HEPARIN SODIUM (PORCINE) 5000 UNITS/ML 1ML VIAL SC SCH (00:28)
[2024-12-27] MEDS: HYDROcodone-ACET 5/325MG TAB PO PRN (02:33)
[2024-12-27 04:22] LABS: Hematocrit 34.1 % (41.0-53.0); Hemoglobin 11.4 g/dL (13.5-17.5); Mean Corpuscular Hemoglobin 29.6 pg (28.0-32.0); Mean Corpuscular Volume 88.6 fL (80.0-100.0); Nucleated Red Blood Cells % 0.0 %
[2024-12-27 04:46] LABS: Alanine Aminotransferase 19 U/L (7-40); Albumin 3.9 g/dL (3.2-4.8); Alkaline Phosphatase 88 U/L (46-116); Anion Gap 12 (5-15); BUN/Creatinine Ratio 13.6 (10.0-20.0); Bilirubin, Total 0.3 mg/dL (0.2-1.0); Carbon Dioxide 23 mmol/L (20-31); Chloride 100 mmol/L (98-107); Potassium 3.8 mmol/L (3.5-5.1); Total Protein 6.6 g/dL (5.7-8.2)
[2024-12-27 04:48] LABS: Blood Urea Nitrogen 41 mg/dL (9-23); Calcium 8.4 mg/dL (8.7-10.4); Glucose 245 mg/dL (74-106); Sodium 135 mmol/L (136-145)
[2024-12-27] MEDS: INSULIN LANTUS (GLARGINE) 1 /0.01ml (100units/ml) SC SCH (06:44)
[2024-12-27 07:50] VITALS: PULSE 75; RESP 24; O2SAT 100
[2024-12-27] MEDS: INSULIN LISPRO (HUMAN) 100 UNITS/ML ML SC SCH (08:42)
--- NOTE | 2024-12-27 09:22 | DVHINCON2 ---
Date of service: Dec 27, [address] Gonsalez Reason for Consultation Acute kidney injury History of Present Illness Patient is a 59-year-old male with past medical history significant for hypertension, diabetes, mi, peripheral arterial disease and congestive heart failure, who is admitted for left-sided chest pain. On admission patient found to have elevated BUN creatinine nephrology is consulted for acute Kidney Disease. Past Medical History hypertension, diabetes, mi, and congestive heart failure Peripheral arterial disease Past Surgical History CABG Below-knee amputation Allergies: Coded Allergies: Penicillins (Verified Allergy, Severe, 01/23/21) Sulfa Antibiotics (Verified Allergy, Severe, 01/23/21) Clindamycin (Verified Allergy, Unknown, 08/24/22) Home Meds Active Scripts Levofloxacin Hemihydrate (LEVOFLOXACIN) 500 Mg Tab, 500 MG PO DAILY for 14 Days, #14 TAB Prov:ARTI ADEN Mary Carmen NOEL 09/16/22 Reported Medications Carvedilol (Carvedilol) 6.25 Mg Tab, 1 TAB PO BID 09/11/22 Pancrelipase (Lipase-Protease- (CREON) 36,000 Unt Cap, 2 CAP PO TID 09/11/22 Gabapentin (Gabapentin) 100 Mg Cap, 1 CAP PO BID 09/11/22 Rosuvastatin Calcium (Rosuvastatin Calcium) 5 Mg Tab, 1 TAB PO DAILY 09/11/22 Digoxin (Digoxin) 125 Mcg Tab, 1 TAB PO DAILY 09/11/22 Insulin Glargine (Basaglar Kwikpen) 100 Unit/Ml Inj, 70 UNITS SC AM & HS 09/11/22 Insulin Lispro (Insulin Lispro Kwikpen) 100 Unit/Ml Inj, 30 UNIT SC TID 09/11/22 Tamsulosin Hcl (Tamsulosin Hcl) 0.4 Mg Cap, 1 CAP PO DAILY 09/11/22 Potassium Chloride (K-Tab) 8 Meq Tab, 1 TAB PO DAILY 09/11/22 Clopidogrel Bisulfate (CLOPIDOGREL) 75 Mg Tab, 1 TAB PO DAILY 09/11/22 Ondansetron HCl (Ondansetron Hydrochloride) 4 Mg Tab, 4 MG PO Q8HP PRN for NAUSEA / VOMITING 09/11/22 Docusate Sodium (Docusate Sodium) 100 Mg Cap, 1 CAP PO BID 09/11/22 Semaglutide (Ozempic) 2 Mg/1.5 Ml Inj, 0.25 MG SC Weekly 09/11/22 Enalapril Maleate (Enalapril Maleate) 10 Mg Tab, 1 TAB PO BID for HTN 09/11/22 Nystatin (Nystatin) 100,000 Unit/Gm Cre, 1 APPLIC TOP BID 09/11/22 Albuterol Sulfate (Albuterol Sulfate Hfa) 108 Mcg/Act Aer, 1 PUFF PO Q4H PRN for SHORTNESS OF BREATH 09/11/22 Loratadine (CLARITIN TABLET) 10 Mg Tb, 1 TAB PO DAILY 09/11/22 Hydrocodone-Acetaminophen (Hydrocodone Bitartrate/AC 10-325 mg) 1 Tab Tab, 1 TAB PO Q6HP PRN for Pain 09/11/22 Aspirin (Aspirin Low Dose) 81 Mg Tab, 1 TAB PO DAILY 09/10/22 Current Medications Current Medications Medications (Trade) Dose Ordered Sig/Prashant Route PRN Reason Start Time Stop Time Status Last Admin Sodium Chloride (Saline Lock Ns) 10 ml Q8HR IV 12/26/24 22:00 Docusate Sodium (Colace Capsule) 100 mg BIDPRN PRN PO FOR CONSTIPATION 12/26/24 16:00 Acetaminophen (Tylenol Tablet) 650 mg Q6HP PRN PO PAIN SCALE 1-3 OR TEMP>100.4 12/26/24 16:00 Acetaminophen/ Hydrocodone Bitart ([place] 5/325MG Tab) 1 tab Q4HP PRN PO MODERATE PAIN (4-6 PAIN SCALE) 12/26/24 16:00 12/27/24 02:33 Ondansetron HCl (Zofran) 4 mg Q4HP PRN IV NAUSEA / VOMITING 12/26/24 16:00 Nitroglycerin (Ntrostat Sublingual) 0.4 mg Q5MINP PRN SL FOR CHEST PAIN 12/26/24 16:00 Morphine Sulfate 2 mg Q30M PRN IV FOR CHEST PAIN 12/26/24 16:00 Aspirin (Ecotrin Enteric Coated Tablet) 81 mg DAILY PO 12/27/24 10:00 Clopidogrel Bisulfate (Plavix) 75 mg DAILY PO 12/27/24 10:00 Future Hold Digoxin (Lanoxin Tablet) 0.125 mg DAILY PO 12/27/24 10:00 Docusate Sodium (Colace Capsule) 100 mg BID PO 12/26/24 22:00 Hold Enalapril Maleate (Vasotec Tablet) 10 mg BID PO 12/26/24 22:00 UNV Gabapentin (Neurontin Capsule) 100 mg BID PO 12/26/24 22:00 12/27/24 00:27 Tamsulosin HCl (Flomax) 0.4 mg DAILY PO 12/27/24 10:00 Carvedilol (Coreg Tablet) 6.25 mg BID PO 12/27/24 10:00 Insulin Glargine (Lantus) 70 units BID@0700,2100 SC 12/27/24 07:00 12/27/24 06:44 Insulin Human Lispro (HumaLOG) 30 units TIDWM SC 12/27/24 08:00 12/27/24 08:42 Patient Own Medication 2 cap TID PO 12/26/24 22:00 UNV Patient Own Medication 1 tab DAILY PO 12/27/24 10:00 Future Hold Pantoprazole Sodium (Protonix) 40 mg DAILY IV 12/27/24 10:00 Heparin Sodium (Porcine) 5,000 units Q12HR SC 12/26/24 22:00 Levofloxacin (Levaquin Tablet) 250 mg DAILY PO 12/27/24 10:00 Family History: Diabetes mellitus G8 MOTHER G8 FATHER FH: Parkinson's disease G8 FATHER Factor V deficiency G8 FATHER Fatty liver G8 MOTHER Review of Systems All 12 item review of systems reviewed with the patient nonsignificant except what is mentioned in the history of present illness H&P Exam Vital Signs/I&O Vital Sign Date Time Temp Pulse Resp B/P (MAP) Pulse Ox O2 Delivery O2 Flow Rate FiO2 12/27/24 07:50 75 24 100 Nasal Cannula* 2 28 12/27/24 07:38 97.1 102/60 (74) 97.1 Physical Exam Patient is awake alert in the wheelchair Lungs clear to auscultation bilaterally Cardiac exam regular rate and rhythm GI soft nontender was normal Extremity below-knee amputation Neuro nonfocal Labs/Diagnostic Data Labs/Diagnostic Data Laboratory Tests Test 12/27/24 08:34 12/27/24 04:08 12/27/24 00:10 12/26/24 21:53 Range/Units POC Glucose 261 H 70-106 mg/dl White Blood Count 12.7 H 4.4-10.8 10^3/uL Red Blood Count 3.85 L 4.5-5.90 10^6/uL Hemoglobin 11.4 L 13.5-17.5 g/dL Hematocrit 34.1 L 41.0-53.0 % Mean Corpuscular Volume 88.6 80.0-100.0 fL Mean Corpuscular Hemoglobin 29.6 28.0-32.0 pg Mean Corpuscular Hemoglobin Concent 33.5 32.0-36.0 g/dL Red Cell Distribution Width 14.0 11.8-14.3 % Platelet Count 194 # 140-450 10^3/uL Mean Platelet Volume 7.3 6.9-10.8 fL Neutrophils (%) (Auto) 66.4 37.0-80.0 % Lymphocytes (%) (Auto) 20.7 10.0-50.0 % Monocytes (%) (Auto) 10.3 0.0-12.0 % Eosinophils (%) (Auto) 1.9 0.0-7.0 % Basophils (%) (Auto) 0.7 0.0-2.0 % Neutrophils # (Auto) 8.5 1.6-8.6 10 ^3/uL Lymphocytes # (Auto) 2.6 0.4-5.4 10 ^3/uL Monocytes # (Auto) 1.3 0-1.3 10 ^3/uL Eosinophils # (Auto) 0.2 0-0.8 10 ^3/uL Basophils # (Auto) 0.1 0-0.2 10 ^3/uL Nucleated Red Blood Cells 0.0 % Sodium Level 135 L 136-145 mmol/L Potassium Level 3.8 3.5-5.1 mmol/L Chloride Level 100 98-107 mmol/L Carbon Dioxide Level 23 20-31 mmol/L Anion Gap 12 5-15 Blood Urea Nitrogen 41 H 9-23 mg/dL Creatinine 3.01 H 0.700-1.30 mg/dL Glomerular Filtration Rate Calc 23 >90 mL/min BUN/Creatinine Ratio 13.6 10.0-20.0 Serum Glucose 245 H 74-106 mg/dL Calcium Level 8.4 L 8.7-10.4 mg/dL Total Bilirubin 0.3 0.2-1.0 mg/dL Aspartate Amino Transferase (AST) 19 13-40 U/L Alanine Aminotransferase (ALT) 19 7-40 U/L Alkaline Phosphatase 88 46-116 U/L Total Protein 6.6 5.7-8.2 g/dL Albumin 3.9 3.2-4.8 g/dL Troponin I High Sensitivity 21 24 </=54 ng/L Test 12/26/24 21:00 12/26/24 17:43 12/26/24 16:13 12/26/24 13:50 Range/Units White Blood Count 10.2 4.4-10.8 10^3/uL Red Blood Count 3.90 L 4.5-5.90 10^6/uL Hemoglobin 11.7 L 13.5-17.5 g/dL Hematocrit 34.7 L 41.0-53.0 % Mean Corpuscular Volume 89.0 80.0-100.0 fL Mean Corpuscular Hemoglobin 30.0 28.0-32.0 pg Mean Corpuscular Hemoglobin Concent 33.7 32.0-36.0 g/dL Red Cell Distribution Width 13.9 11.8-14.3 % Platelet Count 109 #L 140-450 10^3/uL Mean Platelet Volume 7.7 6.9-10.8 fL Neutrophils (%) (Auto) 66.6 37.0-80.0 % Lymphocytes (%) (Auto) 22.3 10.0-50.0 % Monocytes (%) (Auto) 8.6 0.0-12.0 % Eosinophils (%) (Auto) 1.8 0.0-7.0 % Basophils (%) (Auto) 0.7 0.0-2.0 % Neutrophils # (Auto) 6.8 1.6-8.6 10 ^3/uL Lymphocytes # (Auto) 2.3 0.4-5.4 10 ^3/uL Monocytes # (Auto) 0.9 0-1.3 10 ^3/uL Eosinophils # (Auto) 0.2 0-0.8 10 ^3/uL Basophils # (Auto) 0.1 0-0.2 10 ^3/uL Nucleated Red Blood Cells 0.1 % Prothrombin Time 10.3 9.3-11.8 sec Prothrombin Time INR 0.97 0.9-1.15 Activated Partial Thromboplast Time 24.7 24.5-34.5 SEC Sodium Level 135 L 136-145 mmol/L Potassium Level 4.1 3.5-5.1 mmol/L Chloride Level 101 98-107 mmol/L Carbon Dioxide Level 22 20-31 mmol/L Anion Gap 12 5-15 Blood Urea Nitrogen 40 H 9-23 mg/dL Creatinine 3.02 H 0.700-1.30 mg/dL Glomerular Filtration Rate Calc 23 >90 mL/min BUN/Creatinine Ratio 13.2 10.0-20.0 Serum Glucose 183 #H 74-106 mg/dL Calcium Level 8.8 8.7-10.4 mg/dL Magnesium Level 2.3 1.6-2.6 mg/dL Total Bilirubin 0.3 0.2-1.0 mg/dL Aspartate Amino Transferase (AST) 19 13-40 U/L Alanine Aminotransferase (ALT) 19 7-40 U/L Alkaline Phosphatase 98 46-116 U/L Troponin I High Sensitivity 22 23 </=54 ng/L B-Type Natriuretic Peptide 31.21 0-100 pg/mL Total Protein 7.1 5.7-8.2 g/dL Albumin 4.2 3.2-4.8 g/dL Thyroid Stimulating Hormone (TSH) 4.32 0.55-4.78 uIU/mL Digoxin Level 1.54 0.8-2 ng/mL Urine Color Colorless Yellow Urine Clarity Clear Clear Urine pH 6.0 5.0-9.0 Urine Specific [place] 1.009 1.001-1.035 Urine Protein Trace H Negative Urine Ketones Negative Negative Urine Blood Negative Negative /uL Urine Nitrite Negative Negative Urine Bilirubin Negative Negative Urine Urobilinogen Normal Negative mg/dL Urine Leukocyte Esterase 2+ Negative /uL Urine RBC 6 0 - 3 /hpf Urine Microscopic WBC 11 H 0-3 /HPF Urine Squamous Epithelial Cells None seen <5 /hpf Urine Bacteria Few H None Seen /hpf Urine Yeast (Budding) Moderate None Seen /hpf Urine Glucose 2+ H Normal mg/dL POC Glucose 245 H 70-106 mg/dl Test 12/26/24 11:32 12/26/24 10:45 Range/Units White Blood Count 10.2 4.4-10.8 10^3/uL Red Blood Count 4.09 L 4.5-5.90 10^6/uL Hemoglobin 12.2 L 13.5-17.5 g/dL Hematocrit 36.3 L 41.0-53.0 % Mean Corpuscular Volume 88.7 80.0-100.0 fL Mean Corpuscular Hemoglobin 29.9 28.0-32.0 pg Mean Corpuscular Hemoglobin Concent 33.7 32.0-36.0 g/dL Red Cell Distribution Width 14.0 11.8-14.3 % Platelet Count 275 140-450 10^3/uL Mean Platelet Volume 7.3 6.9-10.8 fL Neutrophils (%) (Auto) 71.0 37.0-80.0 % Lymphocytes (%) (Auto) 18.2 10.0-50.0 % Monocytes (%) (Auto) 8.4 0.0-12.0 % Eosinophils (%) (Auto) 1.8 0.0-7.0 % Basophils (%) (Auto) 0.6 0.0-2.0 % Neutrophils # (Auto) 7.3 1.6-8.6 10 ^3/uL Lymphocytes # (Auto) 1.9 0.4-5.4 10 ^3/uL Monocytes # (Auto) 0.9 0-1.3 10 ^3/uL Eosinophils # (Auto) 0.2 0-0.8 10 ^3/uL Basophils # (Auto) 0.1 0-0.2 10 ^3/uL Nucleated Red Blood Cells 0.0 % Prothrombin Time 10.3 9.3-11.8 sec Prothrombin Time INR 0.97 0.9-1.15 Activated Partial Thromboplast Time 26.3 24.5-34.5 SEC Sodium Level 133 L 136-145 mmol/L Potassium Level 4.3 3.5-5.1 mmol/L Chloride Level 98 98-107 mmol/L Carbon Dioxide Level 22 20-31 mmol/L Anion Gap 13 5-15 Blood Urea Nitrogen 39 H 9-23 mg/dL Creatinine 2.90 H 0.700-1.30 mg/dL Glomerular Filtration Rate Calc 24 >90 mL/min BUN/Creatinine Ratio 13.4 10.0-20.0 Serum Glucose 336 H 74-106 mg/dL Calcium Level 9.1 8.7-10.4 mg/dL Troponin I High Sensitivity 25 27 </=54 ng/L Assessment Acute kidney injury superimposed Chronic Kidney Disease secondary hemodynamic mediated Diabetes mellitus type 2 Hypertension Chest pain Peripheral arterial disease Wheelchair-bound Anemia of chronic kidney disease Recommendations Closely monitor fluid and electrolytes Avoid nephrotoxic medications Strict I&Os Check urine electrolytes and protein excretion Check kidney ultrasound Insulin sliding scale Blood pressure control Cardiology consult We will continue to follow Patient seen and examined by myself in the ER. I discussed my plan of care with the patient and primary nurse at the bedside I would like to thank Dr. Gonsalez for the consult, will follow up Plan discussed with: Patient ANNE MARIE COURTNEY MD Dec 27, 2024 09:22
[2024-12-27] MEDS ORDERED: ROSUVASTATIN CALCIUM 5 MG PO SCH (10:00)
[2024-12-27] MEDS ORDERED: CLOPIDOGREL BISULFATE 75 MG TAB PO SCH (10:00)
--- NOTE | 2024-12-27 10:23 | DVH ---
INDICATION: [email or web address] TECHNIQUE: Multiple real-time sonographic images of the kidneys and bladder were obtained. COMPARISON: None FINDINGS: RIGHT kidney measures 10.4 cm in length. No hydronephrosis. LEFT kidney measures 9.1 cm in length. No hydronephrosis. Increased echogenicity of bilateral kidneys. Mtz catheter in decompressed bladder. IMPRESSION: No hydronephrosis. Increased echogenicity of bilateral kidneys can be seen in chronic medical renal disease.
[2024-12-27 10:33] LABS: Magnesium 2.1 mg/dL (1.6-2.6)
[2024-12-27] MEDS: levoFLOXacin 250 MG TAB PO SCH (10:51)
[2024-12-27] MEDS: TAMSULOSIN HYDROCHLORIDE 0.4 MG CAP PO SCH (10:51)
[2024-12-27] MEDS: ASPirin-EC 81 mg tab PO SCH (10:52)
[2024-12-27] MEDS: CARVEDILOL 3.125 MG TAB PO SCH (10:52)
[2024-12-27] MEDS: DIGOXIN 0.125 MG TAB PO SCH (10:53)
[2024-12-27] MEDS: PANTOPRAZOLE 40 MG/10 ML VIAL INJ IV SCH (10:53)
[2024-12-27] MEDS: ONDANSETRON HCL 4 MG/2 ML VIAL IV PRN (11:16)
[2024-12-27 13:24] LABS: Urine Budding Yeast MODERATE /hpf (None Seen); Urine Protein, UAD Negative (Negative); Urine WBC Clumps PRESENT /hpf (None Seen)
[2024-12-27 13:26] LABS: Protein, Urine 26.4 mg/dL (1-14)
[2024-12-27] MEDS: SOD CHL 0.45% 1,000 ML IV SCH (14:51)
--- NOTE | 2024-12-27 15:25 | DVHPN2 ---
Progress Note - Dictate Date Seen: Dec 27, 2024 Medical Necessity Reason Pt with a Central, PICC or Fol: No vital signs Vital Sign Date Time Temp Pulse Resp B/P (MAP) Pulse Ox O2 Delivery O2 Flow Rate FiO2 12/27/24 12:28 79 134/50 12/27/24 12:01 13 100 12/27/24 07:50 Nasal Cannula* 2 28 12/27/24 07:38 97.1 97.1 medications Current Medications Medications Dose Ordered Sig/Prashant Route Start Time Stop Time Status Last Admin Dose Admin Sodium Chloride 10 ml Q8HR IV 12/26/24 22:00 12/27/24 14:22 10 ML Docusate Sodium 100 mg BIDPRN PRN PO 12/26/24 16:00 Acetaminophen 650 mg Q6HP PRN PO 12/26/24 16:00 Acetaminophen/ Hydrocodone Bitart 1 tab Q4HP PRN PO 12/26/24 16:00 12/27/24 11:16 1 TAB Ondansetron HCl 4 mg Q4HP PRN IV 12/26/24 16:00 12/27/24 11:16 4 MG Nitroglycerin 0.4 mg Q5MINP PRN SL 12/26/24 16:00 Morphine Sulfate 2 mg Q30M PRN IV 12/26/24 16:00 Aspirin 81 mg DAILY PO 12/27/24 10:00 12/27/24 10:52 81 MG Clopidogrel Bisulfate 75 mg DAILY PO 12/27/24 10:00 Hold Digoxin 0.125 mg DAILY PO 12/27/24 10:00 12/27/24 10:53 0.125 MG Docusate Sodium 100 mg BID PO 12/26/24 22:00 Hold Enalapril Maleate 10 mg BID PO 12/26/24 22:00 Hold Gabapentin 100 mg BID PO 12/26/24 22:00 12/27/24 10:52 100 MG Tamsulosin HCl 0.4 mg DAILY PO 12/27/24 10:00 12/27/24 10:51 0.4 MG Carvedilol 6.25 mg BID PO 12/27/24 10:00 12/27/24 10:52 6.25 MG Insulin Glargine 70 units BID@0700,2100 SC 12/27/24 07:00 12/27/24 06:44 70 UNITS Insulin Human Lispro 30 units TIDWM SC 12/27/24 08:00 12/27/24 13:21 30 UNITS Patient Own Medication 2 cap TID PO 12/26/24 22:00 Hold Patient Own Medication 1 tab DAILY PO 12/27/24 10:00 Hold Pantoprazole Sodium 40 mg DAILY IV 12/27/24 10:00 12/27/24 10:53 40 MG Heparin Sodium (Porcine) 5,000 units Q12HR SC 12/26/24 22:00 Levofloxacin 250 mg DAILY PO 12/27/24 10:00 12/27/24 10:51 250 MG Sodium Chloride 1,000 ml @ 80 mls/hr [id number] IV 12/27/24 14:00 12/27/24 14:51 80 MLS/HR laboratory and microbiology Laboratory Tests 12/27/24 04:08 Test 12/27/24 04:08 Range/Units Serum Glucose 245 H 74-106 mg/dL Assessment/Plan Patient is a 59-year-old gentleman who presented to the hospital secondary to worsening heart failure. He follows with cardiology regularly and ejection fraction has dropped from 60% in 2021 to 30 to 35% in November 2024. He does have advanced CKD. He had been offered left heart catheterization for further evaluation of coronaries (does have history of coronary artery disease/CABG) but as the kidney function had worsened, suggestion was inpatient management and rehydration prior to cardiac catheterization. Patient also had been experiencing shortness of breath. Does have baseline poor functional capacity and is wheelchair-bound, has had left below-knee amputation and does have chronic wound to the right lower extremity. Goes to wound care as outpatient. Follows with Nephrology as outpatient regularly. Not in acute distress. Sitting in bed. No JVD. Mucosa is pink and wet. No carotid bruit. Lungs are clear to auscultation. Not using accessory muscles of breathing. Cardiac: Regular, no thrill/gallop. Abdomen is soft and obese. Bowel sound is positive. Status post left below-knee amputation. Chronic wound to the right lower extremities present. Past medical history includes coronary artery disease and status post CABG, peripheral artery disease and status post peripheral angioplasty, diabetes mellitus, diabetic neuropathy, CKD, status post left below-knee amputation, chronic right foot wound/cellulitis and history of foot osteomyelitis (right side), asthma/COPD, BPH, morbid obesity, SVT/NSVT, recurrent UTIs and BPH. He is wheelchair-bound. Allergic to penicillin/sulfa/clindamycin He is ex-smoker. Occasionally uses marijuana. Does drink alcohol socially. Echocardiogram of March 29, 2022 had revealed mild concentric left ventricular hypertrophy, ejection fraction of 60-65% and mild biatrial enlargement Echocardiogram of April 24, 2024 had revealed concentric left ventricular hypertrophy, ejection fraction of 45-50%, anteroseptal hypokinesia, moderate left atrial enlargement, mild mitral annular calcification, mild MR/TR and right ventricular systolic pressure of less than 35 mm Hg Echocardiogram of December 02, 2024 (performed in the office) revealed concentric left ventricular hypertrophy, ejection fraction of 30-35%, pseudo normal LV filling, mild biatrial enlargement, mild right ventricular enlargement, mild MR/TR and right ventricular systolic pressure of 45 mm Hg Nuclear stress test of February 28, 2024 (performed in [facility]) reported no ischemia and dilated left ventricle WBC: 10.2 - 10.2 - 12.7 Hemoglobin: 12.2 - 11.7 - 11.4 Creatinine: 2.9 - 3.02 - 3.01 Potassium: 4.3 - 4.1 - 3.8 GFR: - - Troponin (high sensitive): 27 - 25 - 23 - 22 - 24 - 21 BNP: 31.21 TSH: 4.32 Digoxin: 1.54 Chest x-ray revealed: IMPRESSION: No acute intrathoracic abnormality. Renal ultrasound revealed: IMPRESSION: No hydronephrosis. Increased echogenicity of bilateral kidneys can be seen in chronic medical renal disease. Telemetry reveals sinus rhythm Patient is a 59-year-old gentleman who presented with worsening left ventricular systolic function. He does have heart failure. Does have baseline history of coronary artery disease and has had CABG years ago. He also has advanced CKD. Comorbidities include peripheral artery disease and chronic foot infection. Worsening systolic heart failure CKD Peripheral artery disease Coronary artery disease, status post CABG Ischemic cardiomyopathy Diabetes mellitus Diabetic neuropathy Peripheral artery disease, status post peripheral angioplasty History of foot osteomyelitis Chronic leg infection Cardiac suggestion for management: Manage on telemetry Follow-up electrolytes and kidney function tests and correct abnormalities For now, hold diuresis Fluid resuscitation, gentle Echocardiogram Hemoglobin A1c Nephrology, risk stratification prior to cardiac catheterization (talked to Dr Jimenez) Tentative left heart catheterization on Sunday afternoon Light breakfast, Sunday morning and then NPO except meds Further evaluation and management depends on the above and clinical course Thank you for consultation A total of 55 minutes was spent reviewing the patient record, examining the patient, making a diagnostic and therapeutic plan, discussing this plan with medical personnel, following up on diagnostic studies and following the patient for clinical stability excluding any and all procedures. At least 50% of this time was spent in direct, [id number] contact. Thank you for allowing me to participate in this patient's care. Further recommendations will depend on patient's clinical course. Please do not hesitate to contact me if you have any questions or concerns. This medical document was created using electronic medical record system with [employer] computerized dictation system. Although this document has been carefully reviewed, there may still be some phonetic and typographical errors. These areas are purely typographical due to the imperfection of the software programs, and do not reflect any compromise in the patient's medical care. Plan discussed with: Patient, Other (nurse and Dx Board Operator) WAI LAGOS MD Dec 27, 2024 15:25
[2024-12-27] MEDS: SODIUM CHLORIDE 0.9% 1,000 ML IV SCH (16:18)
[2024-12-27 17:03] LABS: Opiate Scree,Urine Neg (NEGATIVE)
[2024-12-27 17:05] LABS: Amphetamine Screen, Urine Neg (NEGATIVE); Barbiturate Scree,Urine Neg (NEGATIVE); Benzodiazephine Screen, Urine Neg (NEGATIVE); Cannabinoid Screen, Urine Neg (NEGATIVE); Cocaine Screen, Urine Neg (NEGATIVE); Phencyclidine Screen, Urine Neg (NEGATIVE)
[2024-12-27 18:26] VITALS: BP 135/56; PULSE 73; PULSE 74; RESP 14; RESP 16; TEMP 97.8; O2SAT 96; O2SAT 99
[2024-12-27] MEDS ORDERED: PANT40TA2 PO (18:26)
[2024-12-27] MEDS ORDERED: FURO1TAB31 PO (18:26)
[2024-12-27] MEDS ORDERED: FERR325T20 PO (18:26)
[2024-12-27] MEDS ORDERED: CARV-216 OR (18:26)
[2024-12-27] MEDS ORDERED: CALC0.25 PO (18:26)
[2024-12-27] MEDS ORDERED: FINA5TAB4 PO (18:26)
[2024-12-27] MEDS ORDERED: MAGN400T40 OR (18:26)
[2024-12-27] MEDS ORDERED: ATOR40TA52 PO (18:26)
[2024-12-27] MEDS ORDERED: CHOL20007 OR ×2 (18:26)
--- NOTE | 2024-12-27 18:40 | DVHPN2 ---
[facility] Admitted here overnight for chest pain. Evaluated by dog handler scheduled for coronary angiogram for Sunday. Currently he remains chest pain-free. Requesting his Jumping Branch to be resumed which he takes at home Changes from previous H/P or p: No Changes Objective Vitals Vital Signs Date Time Temp Pulse Resp B/P (MAP) Pulse Ox O2 Delivery O2 Flow Rate FiO2 12/27/24 17:00 73 18 121/57 (78) 99 12/27/24 07:50 Nasal Cannula* 2 28 12/27/24 07:38 97.1 97.1 Exam Comfortable in bed alert awake oriented x3. No acute distress. HEENT neck supple no JVD. Heart regular rate and rhythm S1-S2. Lungs fair air movement without rales wheezes. Abdomen obese soft positive bowel sounds. Extremities no edema positive pulses. Medications Current Medications Medications Dose Ordered Sig/Prashant Route Start Time Stop Time Status Last Admin Dose Admin Sodium Chloride 10 ml Q8HR IV 12/26/24 22:00 12/27/24 14:22 10 ML Docusate Sodium 100 mg BIDPRN PRN PO 12/26/24 16:00 Acetaminophen 650 mg Q6HP PRN PO 12/26/24 16:00 Acetaminophen/ Hydrocodone Bitart 1 tab Q4HP PRN PO 12/26/24 16:00 12/27/24 11:16 1 TAB Ondansetron HCl 4 mg Q4HP PRN IV 12/26/24 16:00 12/27/24 11:16 4 MG Nitroglycerin 0.4 mg Q5MINP PRN SL 12/26/24 16:00 Morphine Sulfate 2 mg Q30M PRN IV 12/26/24 16:00 Aspirin 81 mg DAILY PO 12/27/24 10:00 12/27/24 10:52 81 MG Clopidogrel Bisulfate 75 mg DAILY PO 12/27/24 10:00 Hold Digoxin 0.125 mg DAILY PO 12/27/24 10:00 12/27/24 10:53 0.125 MG Docusate Sodium 100 mg BID PO 12/26/24 22:00 Hold Gabapentin 100 mg BID PO 12/26/24 22:00 12/27/24 10:52 100 MG Tamsulosin HCl 0.4 mg DAILY PO 12/27/24 10:00 12/27/24 10:51 0.4 MG Carvedilol 6.25 mg BID PO 12/27/24 10:00 12/27/24 10:52 6.25 MG Insulin Glargine 70 units BID@0700,2100 SC 12/27/24 07:00 12/27/24 06:44 70 UNITS Insulin Human Lispro 30 units TIDWM SC 12/27/24 08:00 12/27/24 13:21 30 UNITS Patient Own Medication 1 tab DAILY PO 12/27/24 10:00 Hold Pantoprazole Sodium 40 mg DAILY IV 12/27/24 10:00 12/27/24 10:53 40 MG Heparin Sodium (Porcine) 5,000 units Q12HR SC 12/26/24 22:00 Levofloxacin 250 mg DAILY PO 12/27/24 10:00 12/27/24 10:51 250 MG Sodium Chloride 1,000 ml @ 75 mls/hr [id number] IV 12/27/24 16:15 12/27/24 16:18 75 MLS/HR Laboratory Results Laboratory Tests 12/27/24 04:08 Chemistry Test 12/26/24 21:00 12/27/24 04:08 Albumin 4.2 g/dL (3.2-4.8) 3.9 g/dL (3.2-4.8) Calcium Level 8.8 mg/dL (8.7-10.4) 8.4 mg/dL (8.7-10.4) L Magnesium Level 2.3 mg/dL (1.6-2.6) 2.1 mg/dL (1.6-2.6) Total Protein 7.1 g/dL (5.7-8.2) 6.6 g/dL (5.7-8.2) Phosphorus Level 4.8 mg/dL (2.4-5.1) Coagulation Test 12/26/24 21:00 Prothrombin Time 10.3 sec (9.3-11.8) Prothrombin Time INR 0.97 (0.9-1.15) Activated Partial Thromboplast Time 24.7 SEC (24.5-34.5) Cardiac Markers Test 12/26/24 21:00 B-Type Natriuretic Peptide 31.21 pg/mL (0-100) LFT Test 12/26/24 21:00 12/27/24 04:08 Alanine Aminotransferase (ALT) 19 U/L (7-40) 19 U/L (7-40) Alkaline Phosphatase 98 U/L (46-116) 88 U/L (46-116) Aspartate Amino Transferase (AST) 19 U/L (13-40) 19 U/L (13-40) Total Bilirubin 0.3 mg/dL (0.2-1.0) 0.3 mg/dL (0.2-1.0) HgA1c, TSH Test 12/26/24 21:00 12/27/24 16:32 Thyroid Stimulating Hormone (TSH) 4.32 uIU/mL (0.55-4.78) Hemoglobin A1c 10.3 % A1C (<5.7) H Urinalysis Test 12/27/24 12:54 Urine Color Light-yellow (Yellow) Urine Clarity Cloudy (Clear) H Urine pH 6.0 (5.0-9.0) Urine Specific [place] 1.008 (1.001-1.035) Urine Protein Negative (Negative) Urine Ketones Negative (Negative) Urine Blood Negative /uL (Negative) Urine Nitrite Negative (Negative) Urine Bilirubin Negative (Negative) Urine Urobilinogen Normal mg/dL (Negative) Urine Leukocyte Esterase 3+ /uL (Negative) Urine RBC 4 /hpf (0 - 3) Urine WBC Clumps Present /hpf (None Seen) Urine Microscopic WBC 27 /HPF (0-3) H Urine Squamous Epithelial Cells Few /hpf (<5) Urine Bacteria Few /hpf (None Seen) H Urine Yeast (Budding) Moderate /hpf (None Seen) Urine Creatinine 42.01 mg/dL (30.0-125.0) Urine Protein/Creatinine Ratio 0.63 Urine Sodium 39 mmol/L (40-220) L Urine Glucose 3+ mg/dL (Normal) H Urine Total Protein 26.4 mg/dL (1-14) H Assessment/Plan Assessment/Plan chronic foot infection. Worsening systolic heart failure CKD Peripheral artery disease Coronary artery disease, status post CABG Ischemic cardiomyopathy Diabetes mellitus Diabetic neuropathy Peripheral artery disease, status post peripheral angioplasty History of foot osteomyelitis Continue Jumping Branch for pain and morphine for chest pain. Continue rest of supportive care and treatment as he is on. Proceed with a coronary angiogram for Sunday. Discussed with the patient's nurse regarding care plan at bedside. Plan discussed with: Patient, Other My Orders Orders - DANELLE MICHEL MD Procedure Category Date Status Time * Wound Consult CONS 12/27/24 Transmitted Date of Service: Dec 27, 2024 Billing Provider: DANELLE MICHEL MD Common Visit Codes: [id number] INP/OBS CARE(MOD) DANELLE MICHEL MD Dec 27, 2024 18:40
[2024-12-27 20:00] VITALS: PULSE 78; PULSE 83; RESP 18
[2024-12-28] VITALS: PULSE 82
[2024-12-28 06:17] LABS: Hematocrit 32.8 % (41.0-53.0); Hemoglobin 11.1 g/dL (13.5-17.5); Mean Corpuscular Hemoglobin 30.3 pg (28.0-32.0); Mean Corpuscular Volume 89.3 fL (80.0-100.0); Nucleated Red Blood Cells % 0.0 %
[2024-12-28 06:30] LABS: Alanine Aminotransferase 18 U/L (7-40); Albumin 3.6 g/dL (3.2-4.8); Alkaline Phosphatase 82 U/L (46-116); Anion Gap 10 (5-15); BUN/Creatinine Ratio 14.7 (10.0-20.0); Carbon Dioxide 24 mmol/L (20-31); Chloride 102 mmol/L (98-107); Potassium 4.3 mmol/L (3.5-5.1); Sodium 136 mmol/L (136-145); Total Protein 6.2 g/dL (5.7-8.2)
[2024-12-28 06:39] LABS: Bilirubin, Total 0.2 mg/dL (0.2-1.0); Blood Urea Nitrogen 45 mg/dL (9-23); Calcium 8.3 mg/dL (8.7-10.4); Glucose 274 mg/dL (74-106)
[2024-12-28 08:00] VITALS: BP 122/55; PULSE 74; PULSE 76; RESP 14; TEMP 98.3; O2SAT 100; O2SAT 98
--- NOTE | 2024-12-28 08:29 | DVHSR ---
APPROVED REPORT EXAM: Two-dimensional and M-mode echocardiogram with Doppler and color Doppler. Blood Pressure: 134/50 mmHg INDICATION possible angio Surgery/Intervention CABG: RISK FACTORS Obesity: Height: 6'0, Weight: 250 DIMENSIONS LVDd5.3 (3.8-5.7cm)LA (2D)4.9 (1.9-4.0cm)Aortic Root3.4 (2.0-3.7cm) LVDs4.0 (2.5-4.0cm)LA (MM) (1.9-4.0cm)Aortic Cusp Exc2.0 (1.5-2.0cm) EF (%) 50.0 (55-70%)Rt. Atrium (1.9-4.0cm)Asc. Aorta2.9 cm IVSd0.7 (0.7-1.1cm)RV (D)3.5 (1.8-2.4cm) PWd1.0 (0.7-1.1cm) Mitral Valve MitralMitral Stenosis E wave0.82m/sMV Mean GR.mmHg A wave0.92m/sMV Peak GR.mmHg E/A ratio0.92D MVAcm2 DECEL [id number] 1/2 [place] Aortic Valve Aortic ValveAortic Stenosis V10.75m/Lissy Mean GR.4mmHg V21.19m/Lissy Peak GR.6mmHg LVOT Diameter2.2 (1.8-2.4cm)Doppler AVA2.39cm2 Pulmonic Valve V20.71m/s Other Information Technically limited study due to body habitus.patient position. Conclusion Dilated chambers Left ventricle: Left ventricle was dilated. LVEF was 35%. Concentric left ventricular hypertrophy was seen. Diffuse hypokinesis with more pronounced anterior/apical akinesia was seen. Right ventricle was dilated with reduced systolic function. Both atria were mildly dilated. Aortic valve: Aortic valve was trileaflet. There was no aortic insufficiency/stenosis. There was tr dulce mitral/tricuspid regurgitation. Pulmonary valve was not well visualized. As there was no good tricuspid regurgitation jet, right ventricular systolic pressure could not be es timated. There was no pericardial effusion.
--- NOTE | 2024-12-28 08:36 | DVHPN2 ---
Progress Note - Dictate Date Seen: Dec 28, 2024 Medical Necessity Reason Pt with a Central, PICC or Fol: No vital signs Vital Sign Date Time Temp Pulse Resp B/P (MAP) Pulse Ox O2 Delivery O2 Flow Rate FiO2 12/28/24 00:00 82 12/27/24 23:30 124/55 12/27/24 20:00 18 Nasal Cannula* 2 28 12/27/24 18:26 97.8 99 97.8 Total Intake and Output 12/27/24 12/27/24 12/28/24 15:00 23:00 07:00 Intake Total 530 ml 875 ml Output Total 750 ml Balance 530 ml 125 ml medications Current Medications Medications Dose Ordered Sig/Prashant Route Start Time Stop Time Status Last Admin Dose Admin Sodium Chloride 10 ml Q8HR IV 12/26/24 22:00 12/28/24 05:55 10 ML Docusate Sodium 100 mg BIDPRN PRN PO 12/26/24 16:00 Acetaminophen 650 mg Q6HP PRN PO 12/26/24 16:00 Acetaminophen/ Hydrocodone Bitart 1 tab Q4HP PRN PO 12/26/24 16:00 12/27/24 20:40 1 TAB Ondansetron HCl 4 mg Q4HP PRN IV 12/26/24 16:00 12/27/24 11:16 4 MG Nitroglycerin 0.4 mg Q5MINP PRN SL 12/26/24 16:00 Morphine Sulfate 2 mg Q30M PRN IV 12/26/24 16:00 Aspirin 81 mg DAILY PO 12/27/24 10:00 12/27/24 10:52 81 MG Clopidogrel Bisulfate 75 mg DAILY PO 12/27/24 10:00 Hold Digoxin 0.125 mg DAILY PO 12/27/24 10:00 12/27/24 10:53 0.125 MG Docusate Sodium 100 mg BID PO 12/26/24 22:00 Hold Gabapentin 100 mg BID PO 12/26/24 22:00 12/27/24 22:04 100 MG Tamsulosin HCl 0.4 mg DAILY PO 12/27/24 10:00 12/27/24 10:51 0.4 MG Carvedilol 6.25 mg BID PO 12/27/24 10:00 12/27/24 22:05 6.25 MG Insulin Glargine 70 units BID@0700,2100 SC 12/27/24 07:00 12/28/24 05:57 70 UNITS Insulin Human Lispro 30 units TIDWM SC 12/27/24 08:00 12/27/24 13:21 30 UNITS Patient Own Medication 1 tab DAILY PO 12/27/24 10:00 Hold Pantoprazole Sodium 40 mg DAILY IV 12/27/24 10:00 12/27/24 10:53 40 MG Heparin Sodium (Porcine) 5,000 units Q12HR SC 12/26/24 22:00 12/27/24 22:03 5,000 UNITS Levofloxacin 250 mg DAILY PO 12/27/24 10:00 12/27/24 10:51 250 MG Sodium Chloride 1,000 ml @ 75 mls/hr [id number] IV 12/27/24 16:15 12/28/24 05:55 75 MLS/HR Morphine Sulfate 2 mg Q6HPRN PRN IV 12/27/24 22:00 laboratory and microbiology Laboratory Tests 12/28/24 05:46 Test 12/28/24 05:46 Range/Units Serum Glucose 274 H 74-106 mg/dL Assessment/Plan Patient is a 59-year-old gentleman who presented to the hospital secondary to worsening heart failure. He follows with cardiology regularly and ejection fraction has dropped from 60% in 2021 to 30 to 35% in November 2024. He does have advanced CKD. He had been offered left heart catheterization for further evaluation of coronaries (does have history of coronary artery disease/CABG) but as the kidney function had worsened, suggestion was inpatient management and rehydration prior to cardiac catheterization. Patient also had been experiencing shortness of breath. Does have baseline poor functional capacity and is wheelchair-bound, has had left below-knee amputation and does have chronic wound to the right lower extremity. Goes to wound care as outpatient. Follows with Nephrology as outpatient regularly. Not in acute distress. Sitting in bed. No JVD. Mucosa is pink and wet. No carotid bruit. Lungs are clear to auscultation. Not using accessory muscles of breathing. Cardiac: Regular, no thrill/gallop. Abdomen is soft and obese. Bowel sound is positive. Status post left below-knee amputation. Chronic wound to the right lower extremities present. Past medical history includes coronary artery disease and status post CABG, peripheral artery disease and status post peripheral angioplasty, diabetes mellitus, diabetic neuropathy, CKD, status post left below-knee amputation, chronic right foot wound/cellulitis and history of foot osteomyelitis (right side), asthma/COPD, BPH, morbid obesity, SVT/NSVT, recurrent UTIs and BPH. He is wheelchair-bound. Allergic to penicillin/sulfa/clindamycin He is ex-smoker. Occasionally uses marijuana. Does drink alcohol socially. Echocardiogram of March 29, 2022 had revealed mild concentric left ventricular hypertrophy, ejection fraction of 60-65% and mild biatrial enlargement Echocardiogram of April 24, 2024 had revealed concentric left ventricular hypertrophy, ejection fraction of 45-50%, anteroseptal hypokinesia, moderate left atrial enlargement, mild mitral annular calcification, mild MR/TR and right ventricular systolic pressure of less than 35 mm Hg Echocardiogram of December 02, 2024 (performed in the office) revealed concentric left ventricular hypertrophy, ejection fraction of 30-35%, pseudo normal LV filling, mild biatrial enlargement, mild right ventricular enlargement, mild MR/TR and right ventricular systolic pressure of 45 mm Hg Nuclear stress test of February 28, 2024 (performed in [facility]) reported no ischemia and dilated left ventricle WBC: 10.2 - 10.2 - 12.7 - 9.1 Hemoglobin: 12.2 - 11.7 - 11.4 - 11.1 Creatinine: 2.9 - 3.02 - 3.01 - 3.06 Potassium: 4.3 - 4.1 - 3.8 - 4.3 GFR: - - 23 Troponin (high sensitive): 27 - 25 - 23 - 22 - 24 - 21 BNP: 31.21 TSH: 4.32 Digoxin: 1.54 HgbA1c: 10.3 Urine toxicology: non-revealing Chest x-ray revealed: IMPRESSION: No acute intrathoracic abnormality. Renal ultrasound revealed: IMPRESSION: No hydronephrosis. Increased echogenicity of bilateral kidneys can be seen in chronic medical renal disease. Telemetry reveals sinus rhythm Echocardiogram revealed: Dilated chambers Left ventricle: Left ventricle was dilated. LVEF was 35%. Concentric left ventricular hypertrophy was seen. Diffuse hypokinesis with more pronounced anterior/apical akinesia was seen. Right ventricle was dilated with reduced systolic function. Both atria were mildly dilated. Aortic valve: Aortic valve was trileaflet. There was no aortic insufficiency/stenosis. There was trace mitral/tricuspid regurgitation. Pulmonary valve was not well visualized. As there was no good tricuspid regurgitation jet, right ventricular systolic pressure could not be estimated. There was no pericardial effusion. Patient is a 59-year-old gentleman who presented with worsening left ventricular systolic function. He does have heart failure. Does have baseline history of coronary artery disease and has had CABG years ago. He also has advanced CKD. Comorbidities include peripheral artery disease and chronic foot infection. Worsening systolic heart failure CKD Peripheral artery disease Coronary artery disease, status post CABG Ischemic cardiomyopathy Diabetes mellitus Diabetic neuropathy Peripheral artery disease, status post peripheral angioplasty History of foot osteomyelitis Chronic leg infection Cardiac suggestion for management: Manage on telemetry Follow-up electrolytes and kidney function tests and correct abnormalities For now, hold diuresis Fluid resuscitation, gentle Nephrology, risk stratification prior to cardiac catheterization (talked to Dr Jimenez) Tentative left heart catheterization on Sunday afternoon Light breakfast, Sunday morning and then NPO except meds Further evaluation and management depends on the above and clinical course A total of 55 minutes was spent reviewing the patient record, examining the patient, making a diagnostic and therapeutic plan, discussing this plan with medical personnel, following up on diagnostic studies and following the patient for clinical stability excluding any and all procedures. At least 50% of this time was spent in direct, [id number] contact. Thank you for allowing me to participate in this patient's care. Further recommendations will depend on patient's clinical course. Please do not hesitate to contact me if you have any questions or concerns. This medical document was created using electronic medical record system with [employer] computerized dictation system. Although this document has been carefully reviewed, there may still be some phonetic and typographical errors. These areas are purely typographical due to the imperfection of the software programs, and do not reflect any compromise in the patient's medical care. Plan discussed with: Patient, Other (nurse) WAI LAGOS MD Dec 28, 2024 08:36
--- NOTE | 2024-12-28 09:51 | DVHPN2 ---
Progress Note Date Seen: Dec 28, 2024 Medical Necessity Reason Pt with a Central, PICC or Fol: No Subjective Patient reports: No new complaints Other Systems: Patient seen and examined by myself today in follow-up Objective vital signs Vital Sign Date Time Temp Pulse Resp B/P (MAP) Pulse Ox O2 Delivery O2 Flow Rate FiO2 12/28/24 08:00 98.3 74 14 122/55 (77) 98 98.3 12/27/24 20:00 Nasal Cannula* 2 28 Total Intake and Output 12/27/24 12/27/24 12/28/24 15:00 23:00 07:00 Intake Total 530 ml 950 ml Output Total 750 ml Balance 530 ml 200 ml medications Current Medications Medications Dose Ordered Sig/Prashant Route Start Time Stop Time Status Last Admin Dose Admin Sodium Chloride 10 ml Q8HR IV 12/26/24 22:00 12/28/24 05:55 10 ML Docusate Sodium 100 mg BIDPRN PRN PO 12/26/24 16:00 Acetaminophen 650 mg Q6HP PRN PO 12/26/24 16:00 Acetaminophen/ Hydrocodone Bitart 1 tab Q4HP PRN PO 12/26/24 16:00 12/27/24 20:40 1 TAB Ondansetron HCl 4 mg Q4HP PRN IV 12/26/24 16:00 12/27/24 11:16 4 MG Nitroglycerin 0.4 mg Q5MINP PRN SL 12/26/24 16:00 Morphine Sulfate 2 mg Q30M PRN IV 12/26/24 16:00 Aspirin 81 mg DAILY PO 12/27/24 10:00 12/27/24 10:52 81 MG Clopidogrel Bisulfate 75 mg DAILY PO 12/27/24 10:00 Hold Digoxin 0.125 mg DAILY PO 12/27/24 10:00 12/27/24 10:53 0.125 MG Docusate Sodium 100 mg BID PO 12/26/24 22:00 Hold Gabapentin 100 mg BID PO 12/26/24 22:00 12/27/24 22:04 100 MG Tamsulosin HCl 0.4 mg DAILY PO 12/27/24 10:00 12/27/24 10:51 0.4 MG Carvedilol 6.25 mg BID PO 12/27/24 10:00 12/27/24 22:05 6.25 MG Insulin Glargine 70 units BID@0700,2100 ID 12/27/24 07:00 12/28/24 05:57 70 UNITS Insulin Human Lispro 30 units TIDWM SC 12/27/24 08:00 12/27/24 13:21 30 UNITS Patient Own Medication 1 tab DAILY PO 12/27/24 10:00 Hold Pantoprazole Sodium 40 mg DAILY IV 12/27/24 10:00 12/27/24 10:53 40 MG Heparin Sodium (Porcine) 5,000 units Q12HR SC 12/26/24 22:00 12/27/24 22:03 5,000 UNITS Levofloxacin 250 mg DAILY PO 12/27/24 10:00 12/27/24 10:51 250 MG Sodium Chloride 1,000 ml @ 75 mls/hr [id number] IV 12/27/24 16:15 12/28/24 05:55 75 MLS/HR Morphine Sulfate 2 mg Q6HPRN PRN IV 12/27/24 22:00 Examination: LUNGS:Normal, CVS:Normal, MSK:Abnormal laboratory and microbiology Laboratory Tests 12/28/24 05:46 Test 12/28/24 05:46 Range/Units Serum Glucose 274 H 74-106 mg/dL Microbiology Date/Time Source Procedure Growth Status 12/26/24 21:00 Blood Blood Culture - Preliminary NO GROWTH AFTER 24 HOURS OF INCUBATION. Resulted Problem List/Assessment/Plan Problem List/Assessment/Plan Acute kidney injury superimposed Chronic Kidney Disease stage III B secondary hemodynamic mediated Diabetes mellitus type 2 Hypertension Chronic systolic Congestive heart failure Chest pain Peripheral arterial disease Left below-knee amputation Wheelchair-bound Hyperphosphatemia Secondary hyperparathyroidism Anemia of chronic kidney disease Recommendations Kidney function slightly improved today Increased urine output Mtz catheter Strict I&Os Calcium acetate 3 times a day with meals Calcitriol 0.25 mcg q.day kidney ultrasound reported bilateral echogenic kidney no obstruction Insulin sliding scale Blood pressure control Noted plan for cardiac catheterization IVF hydration with normal saline, 1 mL/kg We will continue to follow Discussed my my treatment plan with the patient, the primary nurse at the bedside And with Dr. Dubon on the phone Plan discussed with: Patient Dietary Evaluation Review Recommendations by RD: Dietary education by RD Comments: 1) Initiate Nephro-Tho @ 1 tb qd 2) Promote optimal PO intake 3) Encourage patient to limit intake of added sugars including sugar-sweetened beverages, desserts, candy, pastries, etc. Aim for a consistent intake of complex carbohydrates spread throughout the day and paired with protein to promote glycemic control 4) Refer to outpatient RD/CDCES for diabetes education and weight management 5) Follow-up with cardiology, pulmonology, and podiatry 6) Continue to monitor I&O, labs, and skin integrity Expected Outcomes/Goals: 1) appetite and labs to improve 2) wound to improve 3) gradual wt loss 4) f/u in 3-5 days ANNE MARIE COURTNEY MD Dec 28, 2024 09:51
[2024-12-28] MEDS: SODIUM CHLORIDE 0.9% 1,000 ML IV SCH (10:00)
[2024-12-28] MEDS: CALCITRIOL 0.25 MCG CAP PO SCH (11:18)
[2024-12-28] MEDS: CALCIUM ACETATE 667 MG CAP PO SCH (11:18)
[2024-12-28 12:00] VITALS: BP 111/44; PULSE 74; RESP 15; TEMP 98
[2024-12-28] MEDS: MORPHINE SULFATE INJ 2 MG/ml SYRG IV PRN (12:06)
--- NOTE | 2024-12-28 13:59 | ECG ---
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
[2024-12-28 16:30] VITALS: BP 120/56; PULSE 71; RESP 12; TEMP 97.8; O2SAT 100
--- NOTE | 2024-12-28 18:03 | DVHPN2 ---
Subjective Cross covering for [facility] today. Admitted here overnight for chest pain. Evaluated by teacher associate scheduled for coronary angiogram for Sunday. Currently he remains chest pain-free. NPO after midnight Changes from previous H/P or p: No Changes Objective Vitals Vital Signs Date Time Temp Pulse Resp B/P (MAP) Pulse Ox O2 Delivery O2 Flow Rate FiO2 12/28/24 16:30 97.8 71 12 120/56 (77) 100 97.8 12/28/24 08:00 Room Air* 0 21 Intake/Output Intake and Output 12/28/24 07:00 Intake Total 1480 ml Output Total 750 ml Balance 730 ml Intake Oral 350 ml IV Total 1130 ml Output Urine Total 750 ml Stool Total 0 ml Exam Comfortable in bed alert awake oriented x3. No acute distress. HEENT neck supple no JVD. Heart regular rate and rhythm S1-S2. Lungs fair air movement without rales wheezes. Abdomen obese soft positive bowel sounds. Extremities no edema positive pulses. Medications Current Medications Medications Dose Ordered Sig/Prashant Route Start Time Stop Time Status Last Admin Dose Admin Sodium Chloride 10 ml Q8HR IV 12/26/24 22:00 12/28/24 14:00 10 ML Docusate Sodium 100 mg BIDPRN PRN PO 12/26/24 16:00 Acetaminophen 650 mg Q6HP PRN PO 12/26/24 16:00 Acetaminophen/ Hydrocodone Bitart 1 tab Q4HP PRN PO 12/26/24 16:00 12/27/24 20:40 1 TAB Ondansetron HCl 4 mg Q4HP PRN IV 12/26/24 16:00 12/27/24 11:16 4 MG Nitroglycerin 0.4 mg Q5MINP PRN SL 12/26/24 16:00 Morphine Sulfate 2 mg Q30M PRN IV 12/26/24 16:00 Aspirin 81 mg DAILY PO 12/27/24 10:00 12/28/24 10:00 81 MG Clopidogrel Bisulfate 75 mg DAILY PO 12/27/24 10:00 Hold Digoxin 0.125 mg DAILY PO 12/27/24 10:00 12/28/24 10:00 0.125 MG Docusate Sodium 100 mg BID PO 12/26/24 22:00 Hold Gabapentin 100 mg BID PO 12/26/24 22:00 12/28/24 10:00 100 MG Tamsulosin HCl 0.4 mg DAILY PO 12/27/24 10:00 12/28/24 10:00 0.4 MG Carvedilol 6.25 mg BID PO 12/27/24 10:00 12/28/24 10:00 6.25 MG Insulin Glargine 70 units BID@0700,2100 SC 12/27/24 07:00 12/28/24 05:57 70 UNITS Insulin Human Lispro 30 units TIDWM SC 12/27/24 08:00 12/28/24 12:18 30 UNITS Patient Own Medication 1 tab DAILY PO 12/27/24 10:00 Hold Pantoprazole Sodium 40 mg DAILY IV 12/27/24 10:00 12/28/24 09:58 40 MG Heparin Sodium (Porcine) 5,000 units Q12HR SC 12/26/24 22:00 12/28/24 10:10 5,000 UNITS Levofloxacin 250 mg DAILY PO 12/27/24 10:00 12/28/24 10:01 250 MG Morphine Sulfate 2 mg Q6HPRN PRN IV 12/27/24 22:00 12/28/24 12:06 2 MG Calcium Acetate 1,334 mg TIDWMEALS PO 12/28/24 12:00 12/28/24 11:18 1,334 MG Calcitriol 0.25 mcg DAILY PO 12/28/24 10:00 12/28/24 11:18 0.25 MCG Sodium Chloride 1,000 ml @ 125 mls/hr Q8H IV 12/28/24 10:00 12/28/24 10:00 125 MLS/HR Laboratory Results Laboratory Tests 12/28/24 05:46 Chemistry Test 12/28/24 05:46 Albumin 3.6 g/dL (3.2-4.8) Calcium Level 8.3 mg/dL (8.7-10.4) L Total Protein 6.2 g/dL (5.7-8.2) LFT Test 12/28/24 05:46 Alanine Aminotransferase (ALT) 18 U/L (7-40) Alkaline Phosphatase 82 U/L (46-116) Aspartate Amino Transferase (AST) 18 U/L (13-40) Total Bilirubin 0.2 mg/dL (0.2-1.0) Urinalysis Test 12/27/24 12:54 Urine Color Light-yellow (Yellow) Urine Clarity Cloudy (Clear) H Urine pH 6.0 (5.0-9.0) Urine Specific [place] 1.008 (1.001-1.035) Urine Protein Negative (Negative) Urine Ketones Negative (Negative) Urine Blood Negative /uL (Negative) Urine Nitrite Negative (Negative) Urine Bilirubin Negative (Negative) Urine Urobilinogen Normal mg/dL (Negative) Urine Leukocyte Esterase 3+ /uL (Negative) Urine RBC 4 /hpf (0 - 3) Urine WBC Clumps Present /hpf (None Seen) Urine Microscopic WBC 27 /HPF (0-3) H Urine Squamous Epithelial Cells Few /hpf (<5) Urine Bacteria Few /hpf (None Seen) H Urine Yeast (Budding) Moderate /hpf (None Seen) Urine Creatinine 42.01 mg/dL (30.0-125.0) Urine Protein/Creatinine Ratio 0.63 Urine Sodium 39 mmol/L (40-220) L Urine Glucose 3+ mg/dL (Normal) H Urine Total Protein 26.4 mg/dL (1-14) H Microbiology Microbiology Date/Time Source Procedure Growth Status 12/26/24 21:00 Blood Blood Culture - Preliminary NO GROWTH AFTER 24 HOURS OF INCUBATION. Resulted Assessment/Plan Assessment/Plan chronic foot infection. Worsening systolic heart failure CKD Peripheral artery disease Coronary artery disease, status post CABG Ischemic cardiomyopathy Diabetes mellitus Diabetic neuropathy Peripheral artery disease, status post peripheral angioplasty History of foot osteomyelitis He is requesting Neurology to evaluate him given his chronic Mtz with a urinary retention. NPO after midnight. Continue rest of supportive care and treatment as he is on. Proceed with a coronary angiogram for Sunday. Discussed with the patient's nurse regarding care plan at bedside. Plan discussed with: Patient, Other My Orders Orders - DANELLE MICHEL MD Procedure Category Date Status Time Cleanse Wound With LORENA 12/28/24 In Process Wound Clean 10:28 Apply Z-Guard LORENA 12/28/24 In Process 10:28 * Urology Consult CONS 12/28/24 Verified 18:01 Date of Service: Dec 28, 2024 Billing Provider: DANELLE MICHEL MD Common Visit Codes: [id number] INP/OBS CARE(MOD) DANELLE MICHEL MD Dec 28, 2024 18:03
[2024-12-28 20:00] VITALS: BP 132/60; PULSE 75; PULSE 78; RESP 15; RESP 17; TEMP 97.9; O2SAT 100
[2024-12-29] VITALS (16 sets, daily range): BP systolic 107–149; BP diastolic 40–70; PULSE 62–102; RESP 12–20; TEMP 97.6–98.7; O2SAT 93–100
[2024-12-29] MEDS: ONDANSETRON HCL 4 MG/2 ML VIAL ONE ×2 (06:22→17:39)
[2024-12-29 06:49] LABS: Hematocrit 32.9 % (41.0-53.0); Hemoglobin 10.9 g/dL (13.5-17.5); Mean Corpuscular Hemoglobin 30.2 pg (28.0-32.0); Mean Corpuscular Volume 90.8 fL (80.0-100.0); Nucleated Red Blood Cells % 0.1 %
[2024-12-29 06:55] LABS: Alanine Aminotransferase 16 U/L (7-40); Albumin 3.6 g/dL (3.2-4.8); Alkaline Phosphatase 77 U/L (46-116); Anion Gap 10 (5-15); BUN/Creatinine Ratio 12.5 (10.0-20.0); Carbon Dioxide 22 mmol/L (20-31); Potassium 4.1 mmol/L (3.5-5.1); Sodium 139 mmol/L (136-145); Total Protein 5.8 g/dL (5.7-8.2)
[2024-12-29 07:01] LABS: Chloride 107 mmol/L (98-107); Glucose 151 mg/dL (74-106)
[2024-12-29 07:02] LABS: Blood Urea Nitrogen 35 mg/dL (9-23)
[2024-12-29 07:05] LABS: Bilirubin, Total 0.2 mg/dL (0.2-1.0); Calcium 8.1 mg/dL (8.7-10.4)
--- NOTE | 2024-12-29 08:20 | ECG ---
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
--- NOTE | 2024-12-29 08:49 | DVHPN2 ---
Progress Note - Dictate Date Seen: Dec 29, 2024 Medical Necessity Reason Pt with a Central, PICC or Fol: No vital signs Vital Sign Date Time Temp Pulse Resp B/P (MAP) Pulse Ox O2 Delivery O2 Flow Rate FiO2 12/29/24 04:30 74 11 118/50 12/29/24 04:00 97.7 100 97.7 12/28/24 20:00 Room Air* 0 21 Total Intake and Output 12/28/24 12/28/24 12/29/24 15:00 23:00 07:00 Intake Total 775 ml 1675 ml 1050 ml Output Total 1501 ml 1500 ml Balance 775 ml 174 ml -450 ml medications Current Medications Medications Dose Ordered Sig/Prashant Route Start Time Stop Time Status Last Admin Dose Admin Sodium Chloride 10 ml Q8HR IV 12/26/24 22:00 12/29/24 05:35 10 ML Docusate Sodium 100 mg BIDPRN PRN PO 12/26/24 16:00 Acetaminophen 650 mg Q6HP PRN PO 12/26/24 16:00 Acetaminophen/ Hydrocodone Bitart 1 tab Q4HP PRN PO 12/26/24 16:00 12/28/24 18:10 1 TAB Ondansetron HCl 4 mg Q4HP PRN IV 12/26/24 16:00 12/29/24 06:15 4 MG Nitroglycerin 0.4 mg Q5MINP PRN SL 12/26/24 16:00 Morphine Sulfate 2 mg Q30M PRN IV 12/26/24 16:00 Aspirin 81 mg DAILY PO 12/27/24 10:00 12/28/24 10:00 81 MG Clopidogrel Bisulfate 75 mg DAILY PO 12/27/24 10:00 Hold Digoxin 0.125 mg DAILY PO 12/27/24 10:00 12/28/24 10:00 0.125 MG Docusate Sodium 100 mg BID PO 12/26/24 22:00 Hold Gabapentin 100 mg BID PO 12/26/24 22:00 12/28/24 22:11 100 MG Tamsulosin HCl 0.4 mg DAILY PO 12/27/24 10:00 12/28/24 10:00 0.4 MG Carvedilol 6.25 mg BID PO 12/27/24 10:00 12/28/24 22:11 6.25 MG Insulin Glargine 70 units BID@0700,2100 SC 12/27/24 07:00 12/28/24 22:14 70 UNITS Insulin Human Lispro 30 units TIDWM SC 12/27/24 08:00 12/28/24 12:18 30 UNITS Patient Own Medication 1 tab DAILY PO 12/27/24 10:00 Hold Pantoprazole Sodium 40 mg DAILY IV 12/27/24 10:00 12/28/24 09:58 40 MG Heparin Sodium (Porcine) 5,000 units Q12HR SC 12/26/24 22:00 12/28/24 22:12 5,000 UNITS Levofloxacin 250 mg DAILY PO 12/27/24 10:00 12/28/24 10:01 250 MG Morphine Sulfate 2 mg Q6HPRN PRN IV 12/27/24 22:00 12/29/24 04:00 2 MG Calcium Acetate 1,334 mg TIDWMEALS PO 12/28/24 12:00 12/28/24 18:10 1,334 MG Calcitriol 0.25 mcg DAILY PO 12/28/24 10:00 12/28/24 11:18 0.25 MCG Sodium Chloride 1,000 ml @ 125 mls/hr Q8H IV 12/28/24 10:00 12/29/24 06:22 125 MLS/HR laboratory and microbiology Laboratory Tests 12/29/24 06:11 Test 12/29/24 06:11 Range/Units Serum Glucose 151 #H 74-106 mg/dL Assessment/Plan Patient is a 59-year-old gentleman who presented to the hospital secondary to worsening heart failure. He follows with cardiology regularly and ejection fraction has dropped from 60% in 2021 to 30 to 35% in November 2024. He does have advanced CKD. He had been offered left heart catheterization for further evaluation of coronaries (does have history of coronary artery disease/CABG) but as the kidney function had worsened, suggestion was inpatient management and rehydration prior to cardiac catheterization. Patient also had been experiencing shortness of breath. Does have baseline poor functional capacity and is wheelchair-bound, has had left below-knee amputation and does have chronic wound to the right lower extremity. Goes to wound care as outpatient. Follows with Nephrology as outpatient regularly. Not in acute distress. Sitting in bed. No JVD. Mucosa is pink and wet. No carotid bruit. Lungs are clear to auscultation. Not using accessory muscles of breathing. Cardiac: Regular, no thrill/gallop. Abdomen is soft and obese. Bowel sound is positive. Status post left below-knee amputation. Chronic wound to the right lower extremities present. Past medical history includes coronary artery disease and status post CABG, peripheral artery disease and status post peripheral angioplasty, diabetes mellitus, diabetic neuropathy, CKD, status post left below-knee amputation, chronic right foot wound/cellulitis and history of foot osteomyelitis (right side), asthma/COPD, BPH, morbid obesity, SVT/NSVT, recurrent UTIs and BPH. He is wheelchair-bound. Allergic to penicillin/sulfa/clindamycin He is ex-smoker. Occasionally uses marijuana. Does drink alcohol socially. Echocardiogram of March 29, 2022 had revealed mild concentric left ventricular hypertrophy, ejection fraction of 60-65% and mild biatrial enlargement Echocardiogram of April 24, 2024 had revealed concentric left ventricular hypertrophy, ejection fraction of 45-50%, anteroseptal hypokinesia, moderate left atrial enlargement, mild mitral annular calcification, mild MR/TR and right ventricular systolic pressure of less than 35 mm Hg Echocardiogram of December 02, 2024 (performed in the office) revealed concentric left ventricular hypertrophy, ejection fraction of 30-35%, pseudo normal LV filling, mild biatrial enlargement, mild right ventricular enlargement, mild MR/TR and right ventricular systolic pressure of 45 mm Hg Nuclear stress test of February 28, 2024 (performed in [facility]) reported no ischemia and dilated left ventricle WBC: 10.2 - 10.2 - 12.7 - 9.1 - 9.2 Hemoglobin: 12.2 - 11.7 - 11.4 - 11.1 - 10.9 Creatinine: 2.9 - 3.02 - 3.01 - 3.06 - 2.79 Potassium: 4.3 - 4.1 - 3.8 - 4.3 - 4.1 GFR: - - - 25 Troponin (high sensitive): - - 23 - 22 - 24 - 21 BNP: 31.21 TSH: 4.32 Digoxin: 1.54 HgbA1c: 10.3 Urine toxicology: non-revealing Chest x-ray revealed: IMPRESSION: No acute intrathoracic abnormality. Renal ultrasound revealed: IMPRESSION: No hydronephrosis. Increased echogenicity of bilateral kidneys can be seen in chronic medical renal disease. Telemetry reveals sinus rhythm Echocardiogram revealed: Dilated chambers Left ventricle: Left ventricle was dilated. LVEF was 35%. Concentric left ventricular hypertrophy was seen. Diffuse hypokinesis with more pronounced anterior/apical akinesia was seen. Right ventricle was dilated with reduced systolic function. Both atria were mildly dilated. Aortic valve: Aortic valve was trileaflet. There was no aortic insufficiency/stenosis. There was trace mitral/tricuspid regurgitation. Pulmonary valve was not well visualized. As there was no good tricuspid regurgitation jet, right ventricular systolic pressure could not be estimated. There was no pericardial effusion. Patient is a 59-year-old gentleman who presented with worsening left ventricular systolic function. He does have heart failure. Does have baseline history of coronary artery disease and has had CABG years ago. He also has advanced CKD. Comorbidities include peripheral artery disease and chronic foot infection. Worsening systolic heart failure CKD Peripheral artery disease Coronary artery disease, status post CABG Ischemic cardiomyopathy Diabetes mellitus Diabetic neuropathy Peripheral artery disease, status post peripheral angioplasty History of foot osteomyelitis Chronic leg infection Cardiac suggestion for management: Manage on telemetry Follow-up electrolytes and kidney function tests and correct abnormalities For now, hold diuresis Fluid resuscitation, gentle Nephrology on board Tentative left heart catheterization this afternoon Light breakfast, Sunday morning and then NPO except meds Further evaluation and management depends on the above and clinical course A total of 55 minutes was spent reviewing the patient record, examining the patient, making a diagnostic and therapeutic plan, discussing this plan with medical personnel, following up on diagnostic studies and following the patient for clinical stability excluding any and all procedures. At least 50% of this time was spent in direct, [id number] contact. Thank you for allowing me to participate in this patient's care. Further recommendations will depend on patient's clinical course. Please do not hesitate to contact me if you have any questions or concerns. This medical document was created using electronic medical record system with [employer] computerized dictation system. Although this document has been carefully reviewed, there may still be some phonetic and typographical errors. These areas are purely typographical due to the imperfection of the software programs, and do not reflect any compromise in the patient's medical care. Dietary Evaluation Review Recommendations by RD: Dietary education by RD Comments: 1) Initiate Nephro-Tho @ 1 tb qd 2) Promote optimal PO intake 3) Encourage patient to limit intake of added sugars including sugar-sweetened beverages, desserts, candy, pastries, etc. Aim for a consistent intake of complex carbohydrates spread throughout the day and paired with protein to promote glycemic control 4) Refer to outpatient RD/CDCES for diabetes education and weight management 5) Follow-up with cardiology, pulmonology, and podiatry 6) Continue to monitor I&O, labs, and skin integrity Expected Outcomes/Goals: 1) appetite and labs to improve 2) wound to improve 3) gradual wt loss 4) f/u in 3-5 days Plan discussed with: Patient, Other (nurse) WAI LAGOS MD Dec 29, 2024 08:49
[2024-12-29 12:12] LABS: Hepatitis B Surface Antigen Negative (Negative)
[2024-12-29 12:27] LABS: Hepatitis C Antibody Negative (Negative)
--- NOTE | 2024-12-29 14:22 | DVHPN2 ---
Progress Note Date Seen: Dec 29, 2024 Resident Creating Document: AMIRA GARCIA RESIDENT Medical Necessity Reason Pt with a Central, PICC or Fol: No Subjective Review of Systems 59-year-old male patient with past medical history of hypertension, diabetes mellitus type 2, coronary artery disease status post CABG, congestive heart failure, peripheral arterial disease, BPH and obstructive uropathy, chronic Mtz catheter use and CKD presented with complaints of left-sided chest tightness. Patient was sent by Dr. 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 Patient sees Dr. Jimenez as an outpatient for CKD On presentation, patient was found to be in MARLON and Nephrology was consulted. Past medical history Hypertension Type 2 diabetes mellitus Coronary artery disease status CABG Congestive heart failure Peripheral arterial disease BPH Obstructive uropathy Chronic Mtz catheter use Chronic kidney disease Past surgical history Below knee amputation on left side Social History Smoker: Non-Smoker Alcohol: Denies ETOH Use Drugs: Marijuana Lives In: Home Interval events 12/29/2024 Seen and examined at bedside Patient is mentioning of mild left-sided chest pressure. Patient has no other complaints Patient is scheduled for left heart catheterization today Currently on normal saline at 125 cc/hour Input output Last 24 hours 3575 mL/3000 mL with a net positive of + 574 ml 800 cc of urine since today morning Changes from previous H/P or p: No Changes Objective vital signs Vital Sign Date Time Temp Pulse Resp B/P (MAP) Pulse Ox O2 Delivery O2 Flow Rate FiO2 12/29/24 12:00 97.9 66 17 111/61 (78) 100 97.9 12/29/24 08:00 Room Air* 0 21 Total Intake and Output 12/28/24 12/28/24 12/29/24 15:00 23:00 07:00 Intake Total 775 ml 1675 ml 1175 ml Output Total 1501 ml 1500 ml Balance 775 ml 174 ml -325 ml medications Current Medications Medications Dose Ordered Sig/Prashant Route Start Time Stop Time Status Last Admin Dose Admin Sodium Chloride 10 ml Q8HR IV 12/26/24 22:00 12/29/24 05:35 10 ML Docusate Sodium 100 mg BIDPRN PRN PO 12/26/24 16:00 Acetaminophen 650 mg Q6HP PRN PO 12/26/24 16:00 Acetaminophen/ Hydrocodone Bitart 1 tab Q4HP PRN PO 12/26/24 16:00 12/28/24 18:10 1 TAB Ondansetron HCl 4 mg Q4HP PRN IV 12/26/24 16:00 12/29/24 12:50 4 MG Nitroglycerin 0.4 mg Q5MINP PRN SL 12/26/24 16:00 Morphine Sulfate 2 mg Q30M PRN IV 12/26/24 16:00 Aspirin 81 mg DAILY PO 12/27/24 10:00 12/29/24 09:32 81 MG Clopidogrel Bisulfate 75 mg DAILY PO 12/27/24 10:00 Hold Digoxin 0.125 mg DAILY PO 12/27/24 10:00 12/28/24 10:00 0.125 MG Docusate Sodium 100 mg BID PO 12/26/24 22:00 Hold Gabapentin 100 mg BID PO 12/26/24 22:00 12/29/24 09:33 100 MG Tamsulosin HCl 0.4 mg DAILY PO 12/27/24 10:00 12/29/24 09:32 0.4 MG Carvedilol 6.25 mg BID PO 12/27/24 10:00 12/29/24 09:32 6.25 MG Insulin Glargine 70 units BID@0700,2100 SC 12/27/24 07:00 12/28/24 22:14 70 UNITS Insulin Human Lispro 30 units TIDWM SC 12/27/24 08:00 12/28/24 12:18 30 UNITS Patient Own Medication 1 tab DAILY PO 12/27/24 10:00 Hold Pantoprazole Sodium 40 mg DAILY IV 12/27/24 10:00 12/29/24 09:31 40 MG Heparin Sodium (Porcine) 5,000 units Q12HR SC 12/26/24 22:00 12/28/24 22:12 5,000 UNITS Levofloxacin 250 mg DAILY PO 12/27/24 10:00 12/29/24 09:33 250 MG Morphine Sulfate 2 mg Q6HPRN PRN IV 12/27/24 22:00 12/29/24 04:00 2 MG Calcium Acetate 1,334 mg TIDWMEALS PO 12/28/24 12:00 12/29/24 09:31 1,334 MG Calcitriol 0.25 mcg DAILY PO 12/28/24 10:00 12/29/24 09:33 0.25 MCG Sodium Chloride 1,000 ml @ 125 mls/hr Q8H IV 12/28/24 10:00 12/29/24 06:22 125 MLS/HR Examination Examination General Appearance: Alert, Oriented X3, Cooperative, No acute distress HEENT: EOMI Respiratory: Clear to auscultation, Normal air movement Cardiovascular: Regular rate, Normal S1, Normal S2 Abdominal: Normal bowel sounds Extremities: Left sided below-knee amputation, wound dressing of the 1st toe right foot, Neuro: Normal speech and tone laboratory and microbiology Laboratory Tests 12/29/24 06:11 Test 12/29/24 06:11 Range/Units Serum Glucose 151 #H 74-106 mg/dL Microbiology Date/Time Source Procedure Growth Status 12/26/24 21:00 Blood Blood Culture - Preliminary NO GROWTH AFTER 48 HOURS OF INCUBATION. Resulted Labs and/or images reviewed: Labs reviewed by me, Image(s) reviewed by me Problem List/Assessment/Plan Problem List/Assessment/Plan Assessment/plan # MARLON on CKD stage IIIB hemodynamically mediated, responsive to IV fluids -kidney ultrasound reported bilateral echogenic kidney no obstruction Input/output Last 24 hours 3575 mL/3000 mL with a net positive of + 574 ml 800 cc of urine since today morning Labs 12/29/2024 shows BUN of 35 which improved from 45 yesterday Creatinine 2.79 which improved from 3.06 yesterday 12/27/2024 Urine protein to creatinine ratio 0.63 Urine sodium 39 Urine total protein 26.4 Urine creatinine 42.01 FeNA 2.1 % # asymptomatic hypocalcemia due to CKD 12/29/2024 labs calcium 8.1, corrected calcium 8.4 # Secondary hyperparathyroidism due to CKD PTH levels 158.8 # Anemia of chronic kidney disease due to CKD Hemoglobin 10.9 labs 12/29/2024 # Diabetes mellitus type 2, uncontrolled Hemoglobin A1c 10.3 # Hypertension # Chronic systolic Congestive heart failure # Chest pain, history of CABG, planned to have left heart catheterization # Peripheral arterial disease # Left below-knee amputation # Wheelchair-bound Plan Monitor kidney function and electrolytes Strict input and output Renal diet Continue Mtz catheter, Urology was consulted by the primary team, for evaluation for BPH and obstructive uropathy Continue calcium acetate t.i.d. with meals and calcitriol 0.25 mcg daily Kidney function improved since yesterday Patient planned to have left heart catheterization today, continue IV fluids for 12 hours status post contrast during left heart catheterization and discontinue after that. Patient needs Tighter control of hemoglobin A1c Outpatient follow up with Nephrology Case discussion with Dr Weathers. Addendum Patient seen and examined, plan discussed with resident. Agree with above, we will follow closely Plan discussed with: Patient, Other My Orders My Orders Orders - AMIRA GARCIA RESIDENT Procedure Category Date Status Time Communication Order ORDERS 12/29/24 Transmitted 13:39 Dietary Evaluation Review Recommendations by RD: Dietary education by RD Comments: 1) Initiate Nephro-Tho @ 1 tb qd 2) Promote optimal PO intake 3) Encourage patient to limit intake of added sugars including sugar-sweetened beverages, desserts, candy, pastries, etc. Aim for a consistent intake of complex carbohydrates spread throughout the day and paired with protein to promote glycemic control 4) Refer to outpatient RD/CD[facility] for diabetes education and weight management 5) Follow-up with cardiology, pulmonology, and podiatry 6) Continue to monitor I&O, labs, and skin integrity Expected Outcomes/Goals: 1) appetite and labs to improve 2) wound to improve 3) gradual wt loss 4) f/u in 3-5 days AMIRA GARCIA Dec 29, 2024 14:22 LILY WEATHERS MD Dec 29, 2024 14:45
[2024-12-29] MEDS: IODIXANOL 320MG/ML 100ML BTL IV ONE (14:48)
[2024-12-29] MEDS: ANGIOMAX 250 MG VIAL IV ONE (14:59)
[2024-12-29] MEDS: LIDOCAINE 2%HCL (LOCAL ANESTH.) INJ 20ML MDV ONE (14:59)
[2024-12-29] MEDS: SODIUM CHL 0.9% 50 ML ONE (14:59)
[2024-12-29] MEDS: fentaNYL CITRATE 100 MCG/2 ML VL ONE ×2 (15:01→17:39)
[2024-12-29] MEDS: MIDAZOLAM HCL 2MG/2ML 2ml VIAL (1mg/ml) ONE (15:02)
[2024-12-29] MEDS: hydrALAZINE HCL 20 MG/ML VL ONE (16:53)
[2024-12-29] MEDS: CLOPIDOGREL BISULFATE 75 MG TAB ONE (16:59)
[2024-12-29] MEDS: FUROSEMIDE 20 MG/2 ML VIAL ONE (17:06)
--- NOTE | 2024-12-29 17:40 | DVHOP2 ---
Operative Report Procedures performed: Left heart catheterization and bilateral coronary angiogram Bypass angiography Left heart catheterization PCI (drug-eluting stent deployment) of proximal LAD Moderate sedation lasting more than 60 minutes Diagnosis: Multivessel coronary artery disease Proximal LAD with 85% lesion. Mid-RCA with 90% lesion Patent SVG to RPDA Patent SVG to obtuse marginal Patent ROSE to diagonal (no retrograde flow into LAD) Status post PCI (drug-eluting stent deployment of proximal LAD) LVEDP was 17 mm Hg Cardiac suggestion for management: Dual antiplatelet therapy (on aspirin and Plavix) for at least 1 year High potency statin, beta blockers Recognizing advanced CKD, we will avoid MELVA inhibitors/ARBs Guideline directed medical therapy for systolic heart failure Optimized medical therapy Findings: LVEDP: 17 mm Hg There was no transaortic valve pressure gradient Left main: Left main was coming off the left sinus of Valsalva. There was no angiographic evidence of disease in left main. LAD: LAD was coming off the left main. Proximal LAD had 85% lesion. Other portions of LAD had mild disease. First diagonal was a medium-sized vessel with moderate disease. Second diagonal had 80% ostial disease but it was a small- vessel. Another diagonal was seen via ROSE angiography which had moderate disease. LCX: LCX was coming off the left main. It had mild disease. Obtuse marginal were RIG MANAGER at its ostium. Obtuse marginal was nourished via patent SVG. RCA: RCA was coming off the right sinus of Valsalva. It was a dominant vessel. Proximal RCA had 75% disease. Mid RCA had 90% disease. RPDA was nourished via patent SVG. ROSE to diagonal was patent with no significant disease in ROSE. There was no retrograde flow nourishment of LAD. SVG to RPDA was patent with no significant disease in SVG. SVG to obtuse marginal was patent with no significant disease in SVG Presentation: Patient is a 59-year-old gentleman with past history of coronary artery disease and status post CABG. He presented to the office with worsening shortness of breath. Does have comorbidities of poor functional capacity. Has had 1 side amputation and the other side with chronic infection. His ejection fraction had dropped throughout time. Patient did have advanced CKD. He follows with Nephrology. Suggestion was for to proceed with left heart catheterization. Patient was cleared by Nephrology who suggested inpatient admission and hydration prior to procedure. Patient was admitted and received fluids as per guidance of Nephrology. Patient was sent for cardiac catheterization. Procedure: After obtaining informed consent, the patient was brought to the medical lab technician. He was prepped and draped in sterile fashion. Right femoral artery was used for access. We used micropuncture. Under fluoroscopy and ultrasound guidance, the right femoral artery was accessed. The 1st access was somehow high. We took out the micropuncture sheath. A 2nd access was at a good point. After angiographically proving a good access site, micropuncture sheath was exchanged over a wire to a 6 Gambian femoral sheath. JL4 diagnostic catheter was used to perform left coronary angiography. A JR4 (6 Gambian) catheter was used to perform left heart catheterization (obtaining pressures). The same 6 Gambian JR4 diagnostic catheter was used to perform right coronary angiography. The same JR4 diagnostic catheter was used to perform SVG angiography to obtuse marginal. The same 6 [place]ian JR4 diagnostic catheter was used to perform ROSE angiography. A 6 Gambian multipurpose diagnostic catheter was used to perform SVG angiography to RPDA. We did recognize that the ROSE was attached to a diagonal with no retrograde flow to LAD territory. SVG angiography was 2 obtuse marginal with no retrograde filling of LCX/LAD territory. We decided to proceed with PCI/drug-eluting stent deployment of proximal LAD. Patient was started on Angiomax. A 6 Gambian XB 3 guiding catheter was used to access the left coronary system. A run-through wire was used to cross the lesion of proximal LAD. A 2.5 x 15 compliant balloon was used for predilatation. We deployed a stent across the lesion in proximal LAD (2.75 x 26 drug-eluting/yrn stent). At this point we proceeded with postdilatation with a 2.75 x 20 noncompliant balloon. There was no dissection/hematoma/perforation. It is of note that prior to intervention, DENISE flow into LAD was DENISE 3 flow. Post intubation DENISE flow remained DENISE 3 flow. Post intervention, remaining disease in proximal LAD was 0%. At 1st we attempted to use an Angio-Seal for managing the right femoral artery access site. Unfortunately as the artery was tortuous, decision was made to proceed with manual management of the access. Angio-Seal was not used. Total bleeding was less than 20 mL. Fluoroscopy time: 19 minutes contrast: 240 mL of WAI Domínguez MD Dec 29, 2024 17:40
[2024-12-29] MEDS: SODIUM CHLORIDE 0.9% 1,000 ML IV SCH (19:21)
--- NOTE | 2024-12-29 21:50 | DVHPN2 ---
Subjective Cross covering for [place] Hospitalist today. Pain-free. Scheduled to undergo coronary angiogram this afternoon. Changes from previous H/P or p: No Changes Objective Vitals Vital Signs Date Time Temp Pulse Resp B/P (MAP) Pulse Ox O2 Delivery O2 Flow Rate FiO2 12/29/24 21:18 96 117/68 12/29/24 20:01 17 12/29/24 20:00 97.8 97 97.8 12/29/24 08:00 Room Air* 0 21 Intake/Output Intake and Output 12/29/24 06:59 Intake Total 3575 ml Output Total 3001 ml Balance 574 ml Intake Oral 1100 ml IV Total 2475 ml Output Urine Total 3000 ml Stool Total 1 ml Exam Comfortable in bed alert awake oriented x3. No acute distress. HEENT neck supple no JVD. Heart regular rate and rhythm S1-S2. Lungs fair air movement without rales wheezes. Abdomen obese soft positive bowel sounds. Extremities no edema positive pulses. Medications Current Medications Medications Dose Ordered Sig/Prashant Route Start Time Stop Time Status Last Admin Dose Admin Sodium Chloride 10 ml Q8HR IV 12/26/24 22:00 12/29/24 21:14 10 ML Docusate Sodium 100 mg BIDPRN PRN PO 12/26/24 16:00 Acetaminophen 650 mg Q6HP PRN PO 12/26/24 16:00 Acetaminophen/ Hydrocodone Bitart 1 tab Q4HP PRN PO 12/26/24 16:00 12/28/24 18:10 1 TAB Ondansetron HCl 4 mg Q4HP PRN IV 12/26/24 16:00 12/29/24 12:50 4 MG Nitroglycerin 0.4 mg Q5MINP PRN SL 12/26/24 16:00 Morphine Sulfate 2 mg Q30M PRN IV 12/26/24 16:00 Aspirin 81 mg DAILY PO 12/27/24 10:00 12/29/24 09:32 81 MG Digoxin 0.125 mg DAILY PO 12/27/24 10:00 12/28/24 10:00 0.125 MG Docusate Sodium 100 mg BID PO 12/26/24 22:00 Hold Gabapentin 100 mg BID PO 12/26/24 22:00 12/29/24 21:14 100 MG Tamsulosin HCl 0.4 mg DAILY PO 12/27/24 10:00 12/29/24 09:32 0.4 MG Carvedilol 6.25 mg BID PO 12/27/24 10:00 12/29/24 21:18 6.25 MG Insulin Glargine 70 units BID@0700,2100 SC 12/27/24 07:00 12/29/24 21:03 70 UNITS Insulin Human Lispro 30 units TIDWM SC 12/27/24 08:00 12/28/24 12:18 30 UNITS Patient Own Medication 1 tab DAILY PO 12/27/24 10:00 Hold Pantoprazole Sodium 40 mg DAILY IV 12/27/24 10:00 12/29/24 09:31 40 MG Heparin Sodium (Porcine) 5,000 units Q12HR SC 12/26/24 22:00 12/29/24 21:23 5,000 UNITS Levofloxacin 250 mg DAILY PO 12/27/24 10:00 12/29/24 09:33 250 MG Morphine Sulfate 2 mg Q6HPRN PRN IV 12/27/24 22:00 12/29/24 19:31 2 MG Calcium Acetate 1,334 mg TIDWMEALS PO 12/28/24 12:00 12/29/24 09:31 1,334 MG Calcitriol 0.25 mcg DAILY PO 12/28/24 10:00 12/29/24 09:33 0.25 MCG Sodium Chloride 1,000 ml @ 125 mls/hr Q8H IV 12/29/24 16:30 12/30/24 03:00 12/29/24 19:21 125 MLS/HR Clopidogrel Bisulfate 75 mg DAILY PO 12/30/24 10:00 Laboratory Results Laboratory Tests 12/29/24 06:11 Chemistry Test 12/29/24 06:11 Albumin 3.6 g/dL (3.2-4.8) Calcium Level 8.1 mg/dL (8.7-10.4) L Total Protein 5.8 g/dL (5.7-8.2) LFT Test 12/29/24 06:11 Alanine Aminotransferase (ALT) 16 U/L (7-40) Alkaline Phosphatase 77 U/L (46-116) Aspartate Amino Transferase (AST) 18 U/L (13-40) Total Bilirubin 0.2 mg/dL (0.2-1.0) Urinalysis Test 12/27/24 12:54 Urine Color Light-yellow (Yellow) Urine Clarity Cloudy (Clear) H Urine pH 6.0 (5.0-9.0) Urine Specific [place] 1.008 (1.001-1.035) Urine Protein Negative (Negative) Urine Ketones Negative (Negative) Urine Blood Negative /uL (Negative) Urine Nitrite Negative (Negative) Urine Bilirubin Negative (Negative) Urine Urobilinogen Normal mg/dL (Negative) Urine Leukocyte Esterase 3+ /uL (Negative) Urine RBC 4 /hpf (0 - 3) Urine WBC Clumps Present /hpf (None Seen) Urine Microscopic WBC 27 /HPF (0-3) H Urine Squamous Epithelial Cells Few /hpf (<5) Urine Bacteria Few /hpf (None Seen) H Urine Yeast (Budding) Moderate /hpf (None Seen) Urine Creatinine 42.01 mg/dL (30.0-125.0) Urine Protein/Creatinine Ratio 0.63 Urine Sodium 39 mmol/L (40-220) L Urine Glucose 3+ mg/dL (Normal) H Urine Total Protein 26.4 mg/dL (1-14) H Microbiology Microbiology Date/Time Source Procedure Growth Status 12/26/24 21:00 Blood Blood Culture - Preliminary NO GROWTH AFTER 72 HOURS OF INCUBATION. Resulted Assessment/Plan Assessment/Plan According to this, nonbloody definitive murmur factors already chronic foot infection. Worsening systolic heart failure CKD Peripheral artery disease Coronary artery disease, status post CABG Ischemic cardiomyopathy Diabetes mellitus Diabetic neuropathy Peripheral artery disease, status post peripheral angioplasty History of foot osteomyelitis Continue present management. Further clinical management per angiogram findings. Discussed with the patient at bedside this afternoon. Plan discussed with: Patient Date of Service: Dec 29, 2024 Billing Provider: DANELLE MICHEL MD Common Visit Codes: [id number] INP/OBS CARE(MOD) DANELLE MICHEL MD Dec 29, 2024 21:50
[2024-12-30] VITALS (15 sets, daily range): BP systolic 91–144; BP diastolic 37–72; PULSE 62–85; RESP 11–21; TEMP 97.6–98.7; O2SAT 98–100
[2024-12-30 06:10] LABS: Hematocrit 32.1 % (41.0-53.0); Hemoglobin 11.0 g/dL (13.5-17.5); Mean Corpuscular Hemoglobin 30.5 pg (28.0-32.0); Mean Corpuscular Volume 89.3 fL (80.0-100.0); Nucleated Red Blood Cells % 0.1 %
[2024-12-30 06:35] LABS: Alanine Aminotransferase 17 U/L (7-40); Albumin 3.8 g/dL (3.2-4.8); Alkaline Phosphatase 85 U/L (46-116); Anion Gap 10 (5-15); BUN/Creatinine Ratio 12.9 (10.0-20.0); Blood Urea Nitrogen 36 mg/dL (9-23); Calcium 8.4 mg/dL (8.7-10.4); Carbon Dioxide 24 mmol/L (20-31); Chloride 104 mmol/L (98-107); Glucose 180 mg/dL (74-106); Magnesium 1.9 mg/dL (1.6-2.6); Potassium 4.3 mmol/L (3.5-5.1); Sodium 138 mmol/L (136-145); Total Protein 6.2 g/dL (5.7-8.2)
[2024-12-30 06:36] LABS: Bilirubin, Total 0.3 mg/dL (0.2-1.0)
--- NOTE | 2024-12-30 08:08 | DVHPN2 ---
Progress Note - Dictate Date Seen: Dec 30, 2024 Medical Necessity Reason Pt with a Central, PICC or Fol: No vital signs Vital Sign Date Time Temp Pulse Resp B/P (MAP) Pulse Ox O2 Delivery O2 Flow Rate FiO2 12/30/24 06:00 64 11 112/72 (85) 100 12/30/24 00:00 98.3 98.3 12/29/24 20:00 Nasal Cannula* 2 28 Total Intake and Output 12/29/24 12/29/24 12/30/24 15:00 23:00 07:00 Intake Total 875 ml 500 ml 1550 ml Output Total 1500 ml 2800 ml Balance 875 ml -1000 ml -1250 ml medications Current Medications Medications Dose Ordered Sig/Prashant Route Start Time Stop Time Status Last Admin Dose Admin Sodium Chloride 10 ml Q8HR IV 12/26/24 22:00 12/30/24 05:47 10 ML Docusate Sodium 100 mg BIDPRN PRN PO 12/26/24 16:00 Acetaminophen 650 mg Q6HP PRN PO 12/26/24 16:00 Acetaminophen/ Hydrocodone Bitart 1 tab Q4HP PRN PO 12/26/24 16:00 12/30/24 00:13 1 TAB Ondansetron HCl 4 mg Q4HP PRN IV 12/26/24 16:00 12/30/24 00:15 4 MG Nitroglycerin 0.4 mg Q5MINP PRN SL 12/26/24 16:00 Morphine Sulfate 2 mg Q30M PRN IV 12/26/24 16:00 Aspirin 81 mg DAILY PO 12/27/24 10:00 12/29/24 09:32 81 MG Digoxin 0.125 mg DAILY PO 12/27/24 10:00 12/28/24 10:00 0.125 MG Docusate Sodium 100 mg BID PO 12/26/24 22:00 Hold Gabapentin 100 mg BID PO 12/26/24 22:00 12/29/24 21:14 100 MG Tamsulosin HCl 0.4 mg DAILY PO 12/27/24 10:00 12/29/24 09:32 0.4 MG Carvedilol 6.25 mg BID PO 12/27/24 10:00 12/29/24 21:18 6.25 MG Insulin Glargine 70 units BID@0700,2100 SC 12/27/24 07:00 12/30/24 06:07 70 UNITS Insulin Human Lispro 30 units TIDWM SC 12/27/24 08:00 12/28/24 12:18 30 UNITS Patient Own Medication 1 tab DAILY PO 12/27/24 10:00 Hold Pantoprazole Sodium 40 mg DAILY IV 12/27/24 10:00 12/29/24 09:31 40 MG Heparin Sodium (Porcine) 5,000 units Q12HR SC 12/26/24 22:00 12/29/24 21:23 5,000 UNITS Levofloxacin 250 mg DAILY PO 12/27/24 10:00 12/29/24 09:33 250 MG Morphine Sulfate 2 mg Q6HPRN PRN IV 12/27/24 22:00 12/30/24 04:11 2 MG Calcium Acetate 1,334 mg TIDWMEALS PO 12/28/24 12:00 12/29/24 09:31 1,334 MG Calcitriol 0.25 mcg DAILY PO 12/28/24 10:00 12/29/24 09:33 0.25 MCG Clopidogrel Bisulfate 75 mg DAILY PO 12/30/24 10:00 laboratory and microbiology Laboratory Tests 12/30/24 05:22 Test 12/30/24 05:22 Range/Units Serum Glucose 180 H 74-106 mg/dL Assessment/Plan s/p LHC, s/p PCI (TAMMY deployment in proximal LAD) Patient is a 59-year-old gentleman who presented to the hospital secondary to worsening heart failure. He follows with cardiology regularly and ejection fraction has dropped from 60% in 2021 to 30 to 35% in November 2024. He does have advanced CKD. He had been offered left heart catheterization for further evaluation of coronaries (does have history of coronary artery disease/CABG) but as the kidney function had worsened, suggestion was inpatient management and rehydration prior to cardiac catheterization. Patient also had been experiencing shortness of breath. Does have baseline poor functional capacity and is wheelchair-bound, has had left below-knee amputation and does have chronic wound to the right lower extremity. Goes to wound care as outpatient. Follows with Nephrology as outpatient regularly. Not in acute distress. Sitting in bed. No JVD. Mucosa is pink and wet. No carotid bruit. Lungs are clear to auscultation. Not using accessory muscles of breathing. Cardiac: Regular, no thrill/gallop. Abdomen is soft and obese. Bowel sound is positive. Status post left below-knee amputation. Chronic wound to the right lower extremities present. Access site in right groin: no hematoma Past medical history includes coronary artery disease and status post CABG, peripheral artery disease and status post peripheral angioplasty, diabetes mellitus, diabetic neuropathy, CKD, status post left below-knee amputation, chronic right foot wound/cellulitis and history of foot osteomyelitis (right side), asthma/COPD, BPH, morbid obesity, SVT/NSVT, recurrent UTIs and BPH. He is wheelchair-bound. Allergic to penicillin/sulfa/clindamycin He is ex-smoker. Occasionally uses marijuana. Does drink alcohol socially. Echocardiogram of March 29, 2022 had revealed mild concentric left ventricular hypertrophy, ejection fraction of 60-65% and mild biatrial enlargement Echocardiogram of April 24, 2024 had revealed concentric left ventricular hypertrophy, ejection fraction of 45-50%, anteroseptal hypokinesia, moderate left atrial enlargement, mild mitral annular calcification, mild MR/TR and right ventricular systolic pressure of less than 35 mm Hg Echocardiogram of December 02, 2024 (performed in the office) revealed concentric left ventricular hypertrophy, ejection fraction of 30-35%, pseudo normal LV filling, mild biatrial enlargement, mild right ventricular enlargement, mild MR/TR and right ventricular systolic pressure of 45 mm Hg Nuclear stress test of February 28, 2024 (performed in [facility]) reported no ischemia and dilated left ventricle WBC: 10.2 - 10.2 - 12.7 - 9.1 - 9.2 - 9.7 Hemoglobin: 12.2 - 11.7 - 11.4 - 11.1 - 10.9 - 11.0 Creatinine: 2.9 - 3.02 - 3.01 - 3.06 - 2.79 - 2.80 Potassium: 4.3 - 4.1 - 3.8 - 4.3 - 4.1 - 4.3 GFR: - - 23 - 23 - 25 - 25 Troponin (high sensitive): 27 - 25 - 23 - 22 - 24 - 21 BNP: 31.21 TSH: 4.32 Digoxin: 1.54 HgbA1c: 10.3 Urine toxicology: non-revealing Chest x-ray revealed: IMPRESSION: No acute intrathoracic abnormality. Renal ultrasound revealed: IMPRESSION: No hydronephrosis. Increased echogenicity of bilateral kidneys can be seen in chronic medical renal disease. Telemetry reveals sinus rhythm Echocardiogram revealed: Dilated chambers Left ventricle: Left ventricle was dilated. LVEF was 35%. Concentric left ventricular hypertrophy was seen. Diffuse hypokinesis with more pronounced anterior/apical akinesia was seen. Right ventricle was dilated with reduced systolic function. Both atria were mildly dilated. Aortic valve: Aortic valve was trileaflet. There was no aortic insufficiency/stenosis. There was trace mitral/tricuspid regurgitation. Pulmonary valve was not well visualized. As there was no good tricuspid regurgitation jet, right ventricular systolic pressure could not be estimated. There was no pericardial effusion. s/p LHC: Multivessel coronary artery disease, Proximal LAD with 85% lesion. mid- RCA with 90% lesion, Patent SVG to RPDA. Patent SVG to obtuse marginal. Patent ROSE to diagonal (no retrograde flow into LAD). Status post PCI (drug-eluting stent deployment of proximal LAD). LVEDP was 17 mm Hg Patient is a 59-year-old gentleman who presented with worsening left ventricular systolic function. He does have heart failure. Does have baseline history of coronary artery disease and has had CABG years ago. He also has advanced CKD. Comorbidities include peripheral artery disease and chronic foot infection. LHC revealed multivessel CAD. Patent grafts. Graft were nourishing RPDA, OM and also Diagonal. There was no retrograde flow from Diagonal into LAD. LAD itself had 85% proximal disease. s/p PCI: TAMMY deployment of proximal LAD. Repeat labs reveal that kidney function remained the same after cardiac cath. Worsening systolic heart failure CKD Peripheral artery disease Coronary artery disease, status post CABG Ischemic cardiomyopathy Diabetes mellitus Diabetic neuropathy Peripheral artery disease, status post peripheral angioplasty History of foot osteomyelitis Chronic leg infection s/p PCI: TAMMY deployment of proximal LAD Cardiac suggestion for management: Manage on telemetry Follow-up electrolytes and kidney function tests and correct abnormalities Dual antiplatelet therapy (ASA/Plavix) for at least one year GDMT for systolic heart failure (on Carvedilol). MELVA inhibitor/ARB on hold for CKD. Their start depends on Nephrology suggestion/permission. Nephrology on board If stable, may go home tomorrow Further evaluation and management depends on the above and clinical course A total of 55 minutes was spent reviewing the patient record, examining the patient, making a diagnostic and therapeutic plan, discussing this plan with medical personnel, following up on diagnostic studies and following the patient for clinical stability excluding any and all procedures. At least 50% of this time was spent in direct, [id number] contact. Thank you for allowing me to participate in this patient's care. Further recommendations will depend on patient's clinical course. Please do not hesitate to contact me if you have any questions or concerns. This medical document was created using electronic medical record system with [employer] computerized dictation system. Although this document has been carefully reviewed, there may still be some phonetic and typographical errors. These areas are purely typographical due to the imperfection of the software programs, and do not reflect any compromise in the patient's medical care. Dietary Evaluation Review Recommendations by RD: Dietary education by RD Comments: 1) Initiate Nephro-Tho @ 1 tb qd 2) Promote optimal PO intake 3) Encourage patient to limit intake of added sugars including sugar-sweetened beverages, desserts, candy, pastries, etc. Aim for a consistent intake of complex carbohydrates spread throughout the day and paired with protein to promote glycemic control 4) Refer to outpatient RD/CDCES for diabetes education and weight management 5) Follow-up with cardiology, pulmonology, and podiatry 6) Continue to monitor I&O, labs, and skin integrity Expected Outcomes/Goals: 1) appetite and labs to improve 2) wound to improve 3) gradual wt loss 4) f/u in 3-5 days Plan discussed with: Patient, Other (nurse) WAI LAGOS MD Dec 30, 2024 08:08
[2024-12-30] MEDS: CLOPIDOGREL BISULFATE 75 MG TAB PO SCH (09:30)
[2024-12-30] MEDS ORDERED: DEXTROSE (50%) 50ML SYRG IV PRN (15:00)
--- NOTE | 2024-12-30 15:33 | DVHINCON2 ---
Date of service: Dec 30, [address] Patten Reason for Consultation Chronic catheter placement History of Present Illness Patient is known to urology service since September of 2022 when he was 1st seen for urinary retention requiring a indwelling Mtz catheter. Patient underwent a diagnostic cystoscopy on five 06/26/2022 with findings of Coaptite lateral lobes and persistent retention. Patient was to undergo UroLift prostate implantation in February of 2024, but the surgery was canceled by anesthesia due to cardiac issues. Patient underwent cardiac angioplasty with stent placement yesterday and has an indwelling Mtz catheter still. The catheter was changed one week ago. He understand that he will not be able to have any prostate surgery for at least six months. He will be maintained with monthly catheter exchanges. Past Medical History CAD BPH Past Surgical History Cystoscopy Family History: Diabetes mellitus G8 MOTHER G8 FATHER FH: Parkinson's disease G8 FATHER Factor V deficiency G8 FATHER Fatty liver G8 MOTHER Allergies: Coded Allergies: Penicillins (Verified Allergy, Severe, 01/23/21) Sulfa Antibiotics (Verified Allergy, Severe, 01/23/21) Clindamycin (Verified Allergy, Unknown, 08/24/22) Home Meds Active Scripts Levofloxacin Hemihydrate (LEVOFLOXACIN) 500 Mg Tab, 500 MG PO DAILY for 14 Days, #14 TAB Prov:ARTI ADEN Mary Carmen NOEL 09/16/22 Reported Medications Cholecalciferol (VITAMIN D3) 2,000 Unit Tab, 125 MCG OR DAILY, TAB 12/27/24 Cholecalciferol (VITAMIN D3) 2,000 Unit Tab, 2000 UNIT OR, TAB 12/27/24 Atorvastatin Calcium (ATORVASTATIN CALCIUM) 40 Mg Tab, 1 TAB PO DAILY, #30 TAB 5 Refills 12/27/24 Ferrous Sulfate (Ferosul) 325 Mg Tab, 325 MG PO DAILY, TAB 12/27/24 Pantoprazole Sodium Sesquihydr (Protonix) 40 Mg Tab, 40 MG PO DAILY, #30 TAB 12/27/24 Magnesium Oxide (MAGNESIUM OXIDE) 400 Mg Tab, 400 MG OR DAILY, TAB 12/27/24 Furosemide (Lasix) 40 Mg Tab, 40 MG PO DAILY, TAB 12/27/24 Finasteride (Finasteride) 5 Mg Tab, 5 MG PO DAILY for 30 Days, MG 12/27/24 Calcitriol (Calcitriol) 0.25 Mcg Cap, 0.25 MCG PO DAILY for 30 Days, MCG 12/27/24 Carvedilol (COREG) 12.5 Mg Tab, 12.5 MG OR BID, TAB 12/27/24 Pancrelipase (Lipase-Protease- (CREON) 36,000 Unt Cap, 2 CAP PO TID 09/11/22 Gabapentin (Gabapentin) 100 Mg Cap, 1 CAP PO BID 09/11/22 Rosuvastatin Calcium (Rosuvastatin Calcium) 5 Mg Tab, 1 TAB PO DAILY 09/11/22 Digoxin (Digoxin) 125 Mcg Tab, 1 TAB PO DAILY 09/11/22 Insulin Glargine (Basaglar Kwikpen) 100 Unit/Ml Inj, 70 UNITS SC AM & HS 09/11/22 Insulin Lispro (Insulin Lispro Kwikpen) 100 Unit/Ml Inj, 30 UNIT SC TID 09/11/22 Tamsulosin Hcl (Tamsulosin Hcl) 0.4 Mg Cap, 1 CAP PO DAILY 09/11/22 Potassium Chloride (K-Tab) 8 Meq Tab, 1 TAB PO DAILY 09/11/22 Clopidogrel Bisulfate (CLOPIDOGREL) 75 Mg Tab, 1 TAB PO DAILY 09/11/22 Ondansetron HCl (Ondansetron Hydrochloride) 4 Mg Tab, 4 MG PO Q8HP PRN for NAUSEA / VOMITING 09/11/22 Docusate Sodium (Docusate Sodium) 100 Mg Cap, 1 CAP PO BID 09/11/22 Semaglutide (Ozempic) 2 Mg/1.5 Ml Inj, 0.25 MG SC Weekly 09/11/22 Enalapril Maleate (Enalapril Maleate) 10 Mg Tab, 1 TAB PO BID for HTN 09/11/22 Nystatin (Nystatin) 100,000 Unit/Gm Cre, 1 APPLIC TOP BID 09/11/22 Albuterol Sulfate (Albuterol Sulfate Hfa) 108 Mcg/Act Aer, 1 PUFF PO Q4H PRN for SHORTNESS OF BREATH 09/11/22 Loratadine (CLARITIN TABLET) 10 Mg Tb, 1 TAB PO DAILY 09/11/22 Hydrocodone-Acetaminophen (Hydrocodone Bitartrate/AC 10-325 mg) 1 Tab Tab, 1 TAB PO Q6HP PRN for Pain 09/11/22 Aspirin (Aspirin Low Dose) 81 Mg Tab, 1 TAB PO DAILY 09/10/22 Discontinued Reported Medications Carvedilol (Carvedilol) 6.25 Mg Tab, 1 TAB PO BID 09/11/22 Current Medications Current Medications Medications (Trade) Dose Ordered Sig/Prashant Route PRN Reason Start Time Stop Time Status Last Admin Sodium Chloride 1,000 ml @ 125 mls/hr Q8H IV 12/29/24 16:30 12/30/24 03:00 DC 12/30/24 00:41 Clopidogrel Bisulfate (Plavix) 75 mg DAILY PO 12/30/24 10:00 12/30/24 09:30 Insulin Glargine (Lantus) 30 units BID@0700,2100 SC 12/30/24 21:00 Diagnostic Test (Pha) (Accu-Chek Comfort Curve T) 1 strip ACHS 12/30/24 17:00 Insulin Human Regular (InsuLIN R) HS SC 12/30/24 22:00 Insulin Human Regular (InsuLIN R) AC SC 12/30/24 17:00 Dextrose 50 ml UD PRN IV Blood Sugar LESS THAN 60 12/30/24 15:00 Vital Signs Vital Signs Date Time Temp Pulse Resp B/P (MAP) Pulse Ox O2 Delivery O2 Flow Rate FiO2 12/30/24 14:23 78 13 129/53 12/30/24 12:00 97.6 100 97.6 12/30/24 08:00 Room Air* 2 N/A Nasal Cannula* Labs/Diagnostic Data Labs Test 12/30/24 12:13 12/30/24 05:22 12/27/24 16:32 12/27/24 12:54 Range/Units White Blood Count 9.7 4.4-10.8 10^3/uL Red Blood Count 3.59 L 4.5-5.90 10^6/uL Hemoglobin 11.0 L 13.5-17.5 g/dL Hematocrit 32.1 L 41.0-53.0 % Mean Corpuscular Volume 89.3 80.0-100.0 fL Mean Corpuscular Hemoglobin 30.5 28.0-32.0 pg Mean Corpuscular Hemoglobin Concent 34.2 32.0-36.0 g/dL Red Cell Distribution Width 14.1 11.8-14.3 % Platelet Count 215 140-450 10^3/uL Mean Platelet Volume 7.3 6.9-10.8 fL Neutrophils (%) (Auto) 71.9 37.0-80.0 % Lymphocytes (%) (Auto) 15.9 10.0-50.0 % Monocytes (%) (Auto) 10.2 0.0-12.0 % Eosinophils (%) (Auto) 1.8 0.0-7.0 % Basophils (%) (Auto) 0.2 0.0-2.0 % Neutrophils # (Auto) 6.9 1.6-8.6 10 ^3/uL Lymphocytes # (Auto) 1.5 0.4-5.4 10 ^3/uL Monocytes # (Auto) 1.0 0-1.3 10 ^3/uL Eosinophils # (Auto) 0.2 0-0.8 10 ^3/uL Basophils # (Auto) 0 0-0.2 10 ^3/uL Nucleated Red Blood Cells 0.1 % Sodium Level 138 136-145 mmol/L Potassium Level 4.3 3.5-5.1 mmol/L Chloride Level 104 98-107 mmol/L Carbon Dioxide Level 24 20-31 mmol/L Anion Gap 10 5-15 Blood Urea Nitrogen 36 H 9-23 mg/dL Creatinine 2.80 H 0.700-1.30 mg/dL Glomerular Filtration Rate Calc 25 >90 mL/min BUN/Creatinine Ratio 12.9 10.0-20.0 Serum Glucose 180 H 74-106 mg/dL Calcium Level 8.4 L 8.7-10.4 mg/dL Magnesium Level 1.9 1.6-2.6 mg/dL Total Bilirubin 0.3 0.2-1.0 mg/dL Aspartate Amino Transferase (AST) 17 13-40 U/L Alanine Aminotransferase (ALT) 17 7-40 U/L Alkaline Phosphatase 85 46-116 U/L Total Protein 6.2 5.7-8.2 g/dL Albumin 3.8 3.2-4.8 g/dL Hemoglobin A1c 10.3 H <5.7 % A1C Urine Color Light-yellow Yellow Urine Clarity Cloudy H Clear Urine pH 6.0 5.0-9.0 Urine Specific Gilbert 1.008 1.001-1.035 Urine Protein Negative Negative Urine Ketones Negative Negative Urine Blood Negative Negative /uL Urine Nitrite Negative Negative Urine Bilirubin Negative Negative Urine Urobilinogen Normal Negative mg/dL Urine Leukocyte Esterase 3+ Negative /uL Urine RBC 4 0 - 3 /hpf Urine WBC Clumps Present None Seen /hpf Urine Microscopic WBC 27 H 0-3 /HPF Urine Squamous Epithelial Cells Few <5 /hpf Urine Bacteria Few H None Seen /hpf Urine Yeast (Budding) Moderate None Seen /hpf Urine Creatinine 42.01 30.0-125.0 mg/dL Urine Protein/Creatinine Ratio 0.63 Urine Sodium 39 L 40-220 mmol/L Urine Glucose 3+ H Normal mg/dL Urine Total Protein 26.4 H 1-14 mg/dL Urine Opiates Screen Neg NEGATIVE Urine Fentanyl Screen Neg NEGATIVE Urine Barbiturates Screen Neg NEGATIVE Urine Phencyclidine Screen Neg NEGATIVE Urine Amphetamines Screen Neg NEGATIVE Urine Benzodiazepines Screen Neg NEGATIVE Urine Cocaine Screen Neg NEGATIVE Urine Cannabinoids Screen Neg NEGATIVE Test 12/27/24 11:27 12/27/24 04:08 12/27/24 00:10 12/26/24 21:00 Range/Units Vitamin D 25-Hydroxy 34.9 30.0-100 ng/mL Hepatitis B Surface Antigen Negative Negative Hepatitis C Antibody Negative Negative Phosphorus Level 4.8 2.4-5.1 mg/dL Parathyroid Hormone (Intact) 158.8 H 18.4-80.1 pg/mL Troponin I High Sensitivity 21 </=54 ng/L Prothrombin Time 10.3 9.3-11.8 sec Prothrombin Time INR 0.97 0.9-1.15 Activated Partial Thromboplast Time 24.7 24.5-34.5 SEC B-Type Natriuretic Peptide 31.21 0-100 pg/mL Thyroid Stimulating Hormone (TSH) 4.32 0.55-4.78 uIU/mL Digoxin Level 1.54 0.8-2 ng/mL Microbiology Date/Time Source Procedure Growth Status 12/26/24 21:00 Blood Blood Culture - Preliminary NO GROWTH AFTER 72 HOURS OF INCUBATION. Resulted Assessment Chronic urinary retention with indwelling catheter Plan/Recommendation Continue with monthly Mtz exchanges until he is cleared by Cardiology to proceed with prostate surgery (UroLift versus TURP) Plan discussed with: Patient, Other MEGA KOENIG MD Dec 30, 2024 15:33
[2024-12-30] MEDS: ACCU-CHEK COMFORT CURVE STRIP VI SCH (17:25)
[2024-12-30] MEDS: InsuLIN REG 1unit/0.01ml Soln (100units/ml) SC SCH ×2 (17:28→21:33)
--- NOTE | 2024-12-30 19:48 | DVHPN2 ---
Progress Note Date Seen: Dec 30, 2024 Resident Creating Document: AMIRA GARCIA RESIDENT Medical Necessity Reason Pt with a Central, PICC or Fol: No Subjective Review of Systems 59-year-old male patient with past medical history of hypertension, diabetes mellitus type 2, coronary artery disease status post CABG, congestive heart failure, peripheral arterial disease, BPH and obstructive uropathy, chronic Mtz catheter use and CKD presented with complaints of left-sided chest tightness. Patient was sent by Dr. Dubon, cost estimating engineer for left heart catheterization. Patient sees Dr. Jimenez as an outpatient for CKD On presentation, patient was found to be in [place] and Nephrology was consulted. Past medical history Hypertension Type 2 diabetes mellitus Coronary artery disease status CABG Congestive heart failure Peripheral arterial disease BPH Obstructive uropathy Chronic Mtz catheter use Chronic kidney disease Past surgical history Below knee amputation on left side Social History Smoker: Non-Smoker Alcohol: Denies ETOH Use Drugs: Marijuana Lives In: Home Interval events 12/29/2024 Seen and examined at bedside Patient is mentioning of mild left-sided chest pressure. Patient has no other complaints Patient is scheduled for left heart catheterization today Currently on normal saline at 125 cc/hour Input output Last 24 hours 3575 mL/3000 mL with a net positive of + 574 ml 800 cc of urine since today morning 12/30/2024 Patient has had left heart catheterization yesterday with PCI of LAD IV fluids were stopped 12 hours post contrast Patient mentioned no active complaints Input output 3050/4300 with a net of-1.25 L Objective vital signs Vital Sign Date Time Temp Pulse Resp B/P (MAP) Pulse Ox O2 Delivery O2 Flow Rate FiO2 12/30/24 18:00 79 12/30/24 16:00 98.7 13 117/54 (75) 100 98.7 12/30/24 08:00 Room Air* 2 N/A Nasal Cannula* Total Intake and Output 12/29/24 12/29/24 12/30/24 15:00 23:00 07:00 Intake Total 875 ml 500 ml 1550 ml Output Total 1500 ml 2800 ml Balance 875 ml -1000 ml -1250 ml medications Current Medications Medications Dose Ordered Sig/Prashant Route Start Time Stop Time Status Last Admin Dose Admin Sodium Chloride 10 ml Q8HR IV 12/26/24 22:00 12/30/24 14:00 10 ML Docusate Sodium 100 mg BIDPRN PRN PO 12/26/24 16:00 Acetaminophen 650 mg Q6HP PRN PO 12/26/24 16:00 Acetaminophen/ Hydrocodone Bitart 1 tab Q4HP PRN PO 12/26/24 16:00 12/30/24 08:53 1 TAB Ondansetron HCl 4 mg Q4HP PRN IV 12/26/24 16:00 12/30/24 00:15 4 MG Nitroglycerin 0.4 mg Q5MINP PRN SL 12/26/24 16:00 Morphine Sulfate 2 mg Q30M PRN IV 12/26/24 16:00 Aspirin 81 mg DAILY PO 12/27/24 10:00 12/30/24 09:36 81 MG Digoxin 0.125 mg DAILY PO 12/27/24 10:00 12/30/24 09:31 0.125 MG Docusate Sodium 100 mg BID PO 12/26/24 22:00 Hold Gabapentin 100 mg BID PO 12/26/24 22:00 12/30/24 09:31 100 MG Tamsulosin HCl 0.4 mg DAILY PO 12/27/24 10:00 12/30/24 09:31 0.4 MG Carvedilol 6.25 mg BID PO 12/27/24 10:00 12/30/24 09:30 6.25 MG Patient Own Medication 1 tab DAILY PO 12/27/24 10:00 Hold Pantoprazole Sodium 40 mg DAILY IV 12/27/24 10:00 12/30/24 09:27 40 MG Heparin Sodium (Porcine) 5,000 units Q12HR SC 12/26/24 22:00 12/30/24 09:32 5,000 UNITS Levofloxacin 250 mg DAILY PO 12/27/24 10:00 12/30/24 09:36 250 MG Morphine Sulfate 2 mg Q6HPRN PRN IV 12/27/24 22:00 12/30/24 13:53 2 MG Calcium Acetate 1,334 mg TIDWMEALS PO 12/28/24 12:00 12/30/24 18:00 1,334 MG Calcitriol 0.25 mcg DAILY PO 12/28/24 10:00 12/30/24 09:36 0.25 MCG Clopidogrel Bisulfate 75 mg DAILY PO 12/30/24 10:00 12/30/24 09:30 75 MG Insulin Glargine 30 units BID@0700,2100 SC 12/30/24 21:00 Diagnostic Test (Pha) 1 strip ACHS 12/30/24 17:00 12/30/24 17:25 1 STRIP Insulin Human Regular HS SC 12/30/24 22:00 Insulin Human Regular AC SC 12/30/24 17:00 12/30/24 17:28 3 UNITS Dextrose 50 ml UD PRN IV 12/30/24 15:00 Examination Examination General Appearance: Alert, Oriented X3, Cooperative, No acute distress HEENT: EOMI Respiratory: Clear to auscultation, Normal air movement Cardiovascular: Regular rate, Normal S1, Normal S2 Abdominal: Normal bowel sounds Extremities: Left sided below-knee amputation, wound dressing of the 1st toe right foot, Neuro: Normal speech and tone laboratory and microbiology Laboratory Tests 12/30/24 05:22 Test 12/30/24 05:22 Range/Units Serum Glucose 180 H 74-106 mg/dL Microbiology Date/Time Source Procedure Growth Status 12/26/24 21:00 Blood Blood Culture - Preliminary NO GROWTH AFTER 72 HOURS OF INCUBATION. Resulted Labs and/or images reviewed: Labs reviewed by me, Image(s) reviewed by me Problem List/Assessment/Plan Problem List/Assessment/Plan Assessment/plan # [place] on CKD stage IIIB hemodynamically mediated, -kidney ultrasound reported bilateral echogenic kidney no obstruction Input output 3050/4300 with a net of-1.25 L Labs 12/30/2024 BUN 36 Creatinine 2.80 12/29/2024 shows BUN of 35 Creatinine 2.79 12/27/2024 Urine protein to creatinine ratio 0.63 Urine sodium 39 Urine total protein 26.4 Urine creatinine 42.01 FeNA 2.1 % # asymptomatic hypocalcemia due to CKD Labs 12/30/2024, corrected calcium 8.6 # Secondary hyperparathyroidism due to CKD PTH levels 158.8 # Anemia of chronic kidney disease due to CKD Hemoglobin 11.0 labs 12/30/2024 # Diabetes mellitus type 2, uncontrolled Hemoglobin A1c 10.3 # Hypertension # Chronic systolic Congestive heart failure # Chest pain, history of CABG, planned to have left heart catheterization # Peripheral arterial disease # Left below-knee amputation # Wheelchair-bound Plan Monitor kidney function and electrolytes Strict input and output Renal diet Continue Mtz catheter, Urology was consulted by the primary team, for evaluation for BPH and obstructive uropathy Continue calcium acetate t.i.d. with meals and calcitriol 0.25 mcg daily Kidney function similar to yesterday We will hold IV fluids considering patient's history of heart failure and ejection fraction of 35% Patient needs Tighter control of hemoglobin A1c Outpatient follow up with Nephrology Case discussion with Dr Weathers Plan discussed with: Patient, Other Dietary Evaluation Review Recommendations by RD: Dietary education by RD Comments: 1) Initiate Nephro-Tho @ 1 tb qd 2) Promote optimal PO intake 3) Encourage patient to limit intake of added sugars including sugar-sweetened beverages, desserts, candy, pastries, etc. Aim for a consistent intake of complex carbohydrates spread throughout the day and paired with protein to promote glycemic control 4) Refer to outpatient RD/CDCES for diabetes education and weight management 5) Follow-up with cardiology, pulmonology, and podiatry 6) Continue to monitor I&O, labs, and skin integrity Expected Outcomes/Goals: 1) appetite and labs to improve 2) wound to improve 3) gradual wt loss 4) f/u in 3-5 days AMIRA GARCIA RESIDENT Dec 30, 2024 19:48 LILY WEATHERS MD Dec 31, 2024 14:49
--- NOTE | 2024-12-30 20:17 | DVHPN2 ---
Subjective Cross covering for [facility] today. Pain-free. Underwent a coronary angiogram with a coronary artery stent placement. [place] stable and okay to be discharged home tomorrow by Cardiology. Changes from previous H/P or p: No Changes Objective Vitals Vital Signs Date Time Temp Pulse Resp B/P (MAP) Pulse Ox O2 Delivery O2 Flow Rate FiO2 12/30/24 18:00 79 12/30/24 16:00 98.7 13 117/54 (75) 100 98.7 12/30/24 08:00 Room Air* 2 N/A Nasal Cannula* Intake/Output Intake and Output 12/30/24 07:00 Intake Total 2925 ml Output Total 4300 ml Balance -1375 ml Intake Oral 800 ml IV Total 2125 ml Output Urine Total 4300 ml Exam Comfortable in bed alert awake oriented x3. No acute distress. HEENT neck supple no JVD. Heart regular rate and rhythm S1-S2. Lungs fair air movement without rales wheezes. Abdomen obese soft positive bowel sounds. Extremities no edema positive pulses. Medications Current Medications Medications Dose Ordered Sig/Prashant Route Start Time Stop Time Status Last Admin Dose Admin Sodium Chloride 10 ml Q8HR IV 12/26/24 22:00 12/30/24 14:00 10 ML Docusate Sodium 100 mg BIDPRN PRN PO 12/26/24 16:00 Acetaminophen 650 mg Q6HP PRN PO 12/26/24 16:00 Acetaminophen/ Hydrocodone Bitart 1 tab Q4HP PRN PO 12/26/24 16:00 12/30/24 08:53 1 TAB Ondansetron HCl 4 mg Q4HP PRN IV 12/26/24 16:00 12/30/24 00:15 4 MG Nitroglycerin 0.4 mg Q5MINP PRN SL 12/26/24 16:00 Morphine Sulfate 2 mg Q30M PRN IV 12/26/24 16:00 Aspirin 81 mg DAILY PO 12/27/24 10:00 12/30/24 09:36 81 MG Digoxin 0.125 mg DAILY PO 12/27/24 10:00 12/30/24 09:31 0.125 MG Docusate Sodium 100 mg BID PO 12/26/24 22:00 Hold Gabapentin 100 mg BID PO 12/26/24 22:00 12/30/24 09:31 100 MG Tamsulosin HCl 0.4 mg DAILY PO 12/27/24 10:00 12/30/24 09:31 0.4 MG Carvedilol 6.25 mg BID PO 12/27/24 10:00 12/30/24 09:30 6.25 MG Patient Own Medication 1 tab DAILY PO 12/27/24 10:00 Hold Pantoprazole Sodium 40 mg DAILY IV 12/27/24 10:00 12/30/24 09:27 40 MG Heparin Sodium (Porcine) 5,000 units Q12HR SC 12/26/24 22:00 12/30/24 09:32 5,000 UNITS Levofloxacin 250 mg DAILY PO 12/27/24 10:00 12/30/24 09:36 250 MG Morphine Sulfate 2 mg Q6HPRN PRN IV 12/27/24 22:00 12/30/24 13:53 2 MG Calcium Acetate 1,334 mg TIDWMEALS PO 12/28/24 12:00 12/30/24 18:00 1,334 MG Calcitriol 0.25 mcg DAILY PO 12/28/24 10:00 12/30/24 09:36 0.25 MCG Clopidogrel Bisulfate 75 mg DAILY PO 12/30/24 10:00 12/30/24 09:30 75 MG Insulin Glargine 30 units BID@0700,2100 SC 12/30/24 21:00 Diagnostic Test (Pha) 1 strip ACHS 12/30/24 17:00 12/30/24 17:25 1 STRIP Insulin Human Regular HS SC 12/30/24 22:00 Insulin Human Regular AC SC 12/30/24 17:00 12/30/24 17:28 3 UNITS Dextrose 50 ml UD PRN IV 12/30/24 15:00 Laboratory Results Laboratory Tests 12/30/24 05:22 Chemistry Test 12/30/24 05:22 Albumin 3.8 g/dL (3.2-4.8) Calcium Level 8.4 mg/dL (8.7-10.4) L Magnesium Level 1.9 mg/dL (1.6-2.6) Total Protein 6.2 g/dL (5.7-8.2) LFT Test 12/30/24 05:22 Alanine Aminotransferase (ALT) 17 U/L (7-40) Alkaline Phosphatase 85 U/L (46-116) Aspartate Amino Transferase (AST) 17 U/L (13-40) Total Bilirubin 0.3 mg/dL (0.2-1.0) Urinalysis Test 12/27/24 12:54 Urine Color Light-yellow (Yellow) Urine Clarity Cloudy (Clear) H Urine pH 6.0 (5.0-9.0) Urine Specific [place] 1.008 (1.001-1.035) Urine Protein Negative (Negative) Urine Ketones Negative (Negative) Urine Blood Negative /uL (Negative) Urine Nitrite Negative (Negative) Urine Bilirubin Negative (Negative) Urine Urobilinogen Normal mg/dL (Negative) Urine Leukocyte Esterase 3+ /uL (Negative) Urine RBC 4 /hpf (0 - 3) Urine WBC Clumps Present /hpf (None Seen) Urine Microscopic WBC 27 /HPF (0-3) H Urine Squamous Epithelial Cells Few /hpf (<5) Urine Bacteria Few /hpf (None Seen) H Urine Yeast (Budding) Moderate /hpf (None Seen) Urine Creatinine 42.01 mg/dL (30.0-125.0) Urine Protein/Creatinine Ratio 0.63 Urine Sodium 39 mmol/L (40-220) L Urine Glucose 3+ mg/dL (Normal) H Urine Total Protein 26.4 mg/dL (1-14) H Microbiology Microbiology Date/Time Source Procedure Growth Status 12/26/24 21:00 Blood Blood Culture - Preliminary NO GROWTH AFTER 72 HOURS OF INCUBATION. Resulted Assessment/Plan Assessment/Plan Status post coronary angiogram with coronary artery stent placement Worsening systolic heart failure CKD Peripheral artery disease Coronary artery disease, status post CABG Ischemic cardiomyopathy Diabetes mellitus Diabetic neuropathy Peripheral artery disease, status post peripheral angioplasty History of foot osteomyelitis Continue present management. Given he had few low blood sugars I will cut down his insulin regimen overnight. Social Service to resume his home health for wound care and Mtz catheter changes. Discharge plan for tomorrow. Discussed with the patient and nurse Plan discussed with: Patient, Other My Orders Orders - DANELLE MICHEL MD Procedure Category Date Status Time * Branch Operations Coordinator CONS 12/30/24 Transmitted Consult Insulin Lantus PHA 12/30/24 In Process (Glargine) (Lantus) 21:00 Glucose Blood PHA 12/30/24 In Process (Accu-Chek Comfort 17:00 Insulin R (Human) PHA 12/30/24 In Process (Insulin R) 22:00 Insulin R (Human) PHA 12/30/24 In Process (Insulin R) 17:00 Dextrose 50% Syringe PHA 12/30/24 In Process 15:00 Date of Service: Dec 30, 2024 Billing Provider: DANELLE MICHEL MD Common Visit Codes: [id number] INP/OBS CARE(MOD) DANELLE MICHEL MD Dec 30, 2024 20:17
[2024-12-30] MEDS: INSULIN LANTUS (GLARGINE) 1 /0.01ml (100units/ml) SC SCH (21:32)
[2024-12-31] VITALS (13 sets, daily range): BP systolic 128–148; BP diastolic 52–71; PULSE 72–93; RESP 11–16; TEMP 36.9; O2SAT 95–100
[2024-12-31 05:59] LABS: Hematocrit 30.4 % (41.0-53.0); Hemoglobin 10.3 g/dL (13.5-17.5); Mean Corpuscular Hemoglobin 30.1 pg (28.0-32.0); Mean Corpuscular Volume 89.2 fL (80.0-100.0); Nucleated Red Blood Cells % 0.0 %
[2024-12-31 06:18] LABS: Alanine Aminotransferase 16 U/L (7-40); Alkaline Phosphatase 79 U/L (46-116); Anion Gap 9 (5-15); BUN/Creatinine Ratio 11.4 (10.0-20.0); Carbon Dioxide 25 mmol/L (20-31); Chloride 103 mmol/L (98-107); Potassium 3.9 mmol/L (3.5-5.1); Sodium 137 mmol/L (136-145); Total Protein 6.0 g/dL (5.7-8.2)
[2024-12-31 06:19] LABS: Albumin 3.5 g/dL (3.2-4.8)
[2024-12-31 06:23] LABS: Bilirubin, Total 0.2 mg/dL (0.2-1.0); Blood Urea Nitrogen 36 mg/dL (9-23); Calcium 8.3 mg/dL (8.7-10.4); Glucose 130 mg/dL (74-106)
--- NOTE | 2024-12-31 08:32 | DVHPN2 ---
Progress Note - Dictate Date Seen: Dec 31, 2024 Medical Necessity Reason Pt with a Central, PICC or Fol: No vital signs Vital Sign Date Time Temp Pulse Resp B/P (MAP) Pulse Ox O2 Delivery O2 Flow Rate FiO2 12/31/24 06:00 87 12/31/24 04:00 99.0 13 128/55 (79) 100 99.0 12/30/24 20:00 Room Air* 2 N/A Nasal Cannula* Total Intake and Output 12/30/24 12/30/24 12/31/24 15:00 23:00 07:00 Intake Total 960 ml 600 ml Output Total 875 ml 2350 ml Balance 85 ml -1750 ml medications Current Medications Medications Dose Ordered Sig/Prashant Route Start Time Stop Time Status Last Admin Dose Admin Sodium Chloride 10 ml Q8HR IV 12/26/24 22:00 12/31/24 05:09 10 ML Docusate Sodium 100 mg BIDPRN PRN PO 12/26/24 16:00 Acetaminophen 650 mg Q6HP PRN PO 12/26/24 16:00 Acetaminophen/ Hydrocodone Bitart 1 tab Q4HP PRN PO 12/26/24 16:00 12/30/24 21:34 1 TAB Ondansetron HCl 4 mg Q4HP PRN IV 12/26/24 16:00 12/30/24 00:15 4 MG Nitroglycerin 0.4 mg Q5MINP PRN SL 12/26/24 16:00 Morphine Sulfate 2 mg Q30M PRN IV 12/26/24 16:00 Aspirin 81 mg DAILY PO 12/27/24 10:00 12/30/24 09:36 81 MG Digoxin 0.125 mg DAILY PO 12/27/24 10:00 12/30/24 09:31 0.125 MG Docusate Sodium 100 mg BID PO 12/26/24 22:00 Hold Gabapentin 100 mg BID PO 12/26/24 22:00 12/30/24 21:34 100 MG Tamsulosin HCl 0.4 mg DAILY PO 12/27/24 10:00 12/30/24 09:31 0.4 MG Carvedilol 6.25 mg BID PO 12/27/24 10:00 12/30/24 21:31 6.25 MG Patient Own Medication 1 tab DAILY PO 12/27/24 10:00 Hold Pantoprazole Sodium 40 mg DAILY IV 12/27/24 10:00 12/30/24 09:27 40 MG Heparin Sodium (Porcine) 5,000 units Q12HR SC 12/26/24 22:00 12/30/24 21:33 5,000 UNITS Levofloxacin 250 mg DAILY PO 12/27/24 10:00 12/30/24 09:36 250 MG Morphine Sulfate 2 mg Q6HPRN PRN IV 12/27/24 22:00 12/31/24 00:59 2 MG Calcium Acetate 1,334 mg TIDWMEALS PO 12/28/24 12:00 12/30/24 18:00 1,334 MG Calcitriol 0.25 mcg DAILY PO 12/28/24 10:00 12/30/24 09:36 0.25 MCG Clopidogrel Bisulfate 75 mg DAILY PO 12/30/24 10:00 12/30/24 09:30 75 MG Insulin Glargine 30 units BID@0700,2100 SC 12/30/24 21:00 12/31/24 06:18 30 UNITS Diagnostic Test (Pha) 1 strip ACHS 12/30/24 17:00 12/31/24 06:08 1 STRIP Insulin Human Regular HS SC 12/30/24 22:00 12/30/24 21:33 4 UNITS Insulin Human Regular AC SC 12/30/24 17:00 12/30/24 17:28 3 UNITS Dextrose 50 ml UD PRN IV 12/30/24 15:00 laboratory and microbiology Laboratory Tests 12/31/24 05:28 Test 12/31/24 05:28 Range/Units Serum Glucose 130 H 74-106 mg/dL Assessment/Plan s/p LHC, s/p PCI (TAMMY deployment in proximal LAD) Patient is a 59-year-old gentleman who presented to the hospital secondary to worsening heart failure. He follows with cardiology regularly and ejection fraction has dropped from 60% in 2021 to 30 to 35% in November 2024. He does have advanced CKD. He had been offered left heart catheterization for further evaluation of coronaries (does have history of coronary artery disease/CABG) but as the kidney function had worsened, suggestion was inpatient management and rehydration prior to cardiac catheterization. Patient also had been experiencing shortness of breath. Does have baseline poor functional capacity and is wheelchair-bound, has had left below-knee amputation and does have chronic wound to the right lower extremity. Goes to wound care as outpatient. Follows with Nephrology as outpatient regularly. Not in acute distress. Sitting in bed. No JVD. Mucosa is pink and wet. No carotid bruit. Lungs are clear to auscultation. Not using accessory muscles of breathing. Cardiac: Regular, no thrill/gallop. Abdomen is soft and obese. Bowel sound is positive. Status post left below-knee amputation. Chronic wound to the right lower extremities present. Access site in right groin: no hematoma Past medical history includes coronary artery disease and status post CABG, peripheral artery disease and status post peripheral angioplasty, diabetes mellitus, diabetic neuropathy, CKD, status post left below-knee amputation, chronic right foot wound/cellulitis and history of foot osteomyelitis (right side), asthma/COPD, BPH, morbid obesity, SVT/NSVT, recurrent UTIs and BPH. He is wheelchair-bound. Allergic to penicillin/sulfa/clindamycin He is ex-smoker. Occasionally uses marijuana. Does drink alcohol socially. Echocardiogram of March 29, 2022 had revealed mild concentric left ventricular hypertrophy, ejection fraction of 60-65% and mild biatrial enlargement Echocardiogram of April 24, 2024 had revealed concentric left ventricular hypertrophy, ejection fraction of 45-50%, anteroseptal hypokinesia, moderate left atrial enlargement, mild mitral annular calcification, mild MR/TR and right ventricular systolic pressure of less than 35 mm Hg Echocardiogram of December 02, 2024 (performed in the office) revealed concentric left ventricular hypertrophy, ejection fraction of 30-35%, pseudo normal LV filling, mild biatrial enlargement, mild right ventricular enlargement, mild MR/TR and right ventricular systolic pressure of 45 mm Hg Nuclear stress test of February 28, 2024 (performed in [facility]) reported no ischemia and dilated left ventricle WBC: 10.2 - 10.2 - 12.7 - 9.1 - 9.2 - 9.7 - 7.7 Hemoglobin: 12.2 - 11.7 - 11.4 - 11.1 - 10.9 - 11.0 - 10.3 Creatinine: 2.9 - 3.02 - 3.01 - 3.06 - 2.79 - 2.80 - 3.16 Potassium: 4.3 - 4.1 - 3.8 - 4.3 - 4.1 - 4.3 - 3.9 GFR: - 23 - 25 - 25 - 22 Troponin (high sensitive): 27 - 25 - 23 - 22 - 24 - 21 BNP: 31.21 TSH: 4.32 Digoxin: 1.54 HgbA1c: 10.3 Urine toxicology: non-revealing Chest x-ray revealed: IMPRESSION: No acute intrathoracic abnormality. Renal ultrasound revealed: IMPRESSION: No hydronephrosis. Increased echogenicity of bilateral kidneys can be seen in chronic medical renal disease. Telemetry reveals sinus rhythm Echocardiogram revealed: Dilated chambers Left ventricle: Left ventricle was dilated. LVEF was 35%. Concentric left ventricular hypertrophy was seen. Diffuse hypokinesis with more pronounced anterior/apical akinesia was seen. Right ventricle was dilated with reduced systolic function. Both atria were mildly dilated. Aortic valve: Aortic valve was trileaflet. There was no aortic insufficiency/stenosis. There was trace mitral/tricuspid regurgitation. Pulmonary valve was not well visualized. As there was no good tricuspid regurgitation jet, right ventricular systolic pressure could not be estimated. There was no pericardial effusion. s/p LHC: Multivessel coronary artery disease, Proximal LAD with 85% lesion. mid- RCA with 90% lesion, Patent SVG to RPDA. Patent SVG to obtuse marginal. Patent ROSE to diagonal (no retrograde flow into LAD). Status post PCI (drug-eluting stent deployment of proximal LAD). LVEDP was 17 mm Hg Patient is a 59-year-old gentleman who presented with worsening left ventricular systolic function. He does have heart failure. Does have baseline history of coronary artery disease and has had CABG years ago. He also has advanced CKD. Comorbidities include peripheral artery disease and chronic foot infection. LHC revealed multivessel CAD. Patent grafts. Graft were nourishing RPDA, OM and also Diagonal. There was no retrograde flow from Diagonal into LAD. LAD itself had 85% proximal disease. s/p PCI: TAMMY deployment of proximal LAD. Repeat labs reveal that kidney function remained the same after cardiac cath. Worsening systolic heart failure CKD Peripheral artery disease Coronary artery disease, status post CABG Ischemic cardiomyopathy Diabetes mellitus Diabetic neuropathy Peripheral artery disease, status post peripheral angioplasty History of foot osteomyelitis Chronic leg infection s/p PCI: TAMMY deployment of proximal LAD Cardiac suggestion for management: Manage on telemetry Follow-up electrolytes and kidney function tests and correct abnormalities Dual antiplatelet therapy (ASA/Plavix) for at least one year GDMT for systolic heart failure (on Carvedilol). MELVA inhibitor/ARB on hold for CKD. Their start depends on Nephrology suggestion/permission. Nephrology on board Cardiac cardenas, can be followed as outpatient Further evaluation and management depends on the above and clinical course A total of 55 minutes was spent reviewing the patient record, examining the patient, making a diagnostic and therapeutic plan, discussing this plan with medical personnel, following up on diagnostic studies and following the patient for clinical stability excluding any and all procedures. At least 50% of this time was spent in direct, [id number] contact. Thank you for allowing me to participate in this patient's care. Further recommendations will depend on patient's clinical course. Please do not hesitate to contact me if you have any questions or concerns. This medical document was created using electronic medical record system with [employer] dictation system. Although this document has been carefully reviewed, there may still be some phonetic and typographical errors. These areas are purely typographical due to the imperfection of the software programs, and do not reflect any compromise in the patient's medical care. Dietary Evaluation Review Recommendations by RD: Dietary education by RD Comments: 1) Initiate Nephro-Tho @ 1 tb qd 2) Promote optimal PO intake 3) Encourage patient to limit intake of added sugars including sugar-sweetened beverages, desserts, candy, pastries, etc. Aim for a consistent intake of complex carbohydrates spread throughout the day and paired with protein to promote glycemic control 4) Refer to outpatient RD/CDCES for diabetes education and weight management 5) Follow-up with cardiology, pulmonology, and podiatry 6) Continue to monitor I&O, labs, and skin integrity Expected Outcomes/Goals: 1) appetite and labs to improve 2) wound to improve 3) gradual wt loss 4) f/u in 3-5 days Plan discussed with: Patient, Other (nurse) WAI LAGOS MD Dec 31, 2024 08:32
[2024-12-31] MEDS ORDERED: ASPI-325 PO (11:23)
[2024-12-31] MEDS ORDERED: CLOP75TA70 PO (11:23)
[2024-12-31] MEDS ORDERED: ATOR40TA52 PO (11:23)
--- NOTE | 2024-12-31 14:51 | DVHPN2 ---
Progress Note Date Seen: Dec 31, 2024 Medical Necessity Reason Pt with a Central, PICC or Fol: No Subjective Patient reports: No new complaints Review of Systems: HEENT:Normal, CVS:Normal, RESPIRATORY:Normal, GI:Normal, :Normal, MSK:Abnormal, NEURO:Normal Objective vital signs Vital Sign Date Time Temp Pulse Resp B/P (MAP) Pulse Ox O2 Delivery O2 Flow Rate FiO2 12/31/24 14:00 77 12/31/24 11:31 139/52 12/31/24 08:00 11 99 Room Air* 0 N/A Nasal Cannula* 12/31/24 08:00 98.7 98.7 Total Intake and Output 12/30/24 12/30/24 12/31/24 15:00 23:00 07:00 Intake Total 960 ml 600 ml Output Total 875 ml 2350 ml Balance 85 ml -1750 ml medications Current Medications Medications Dose Ordered Sig/Prashant Route Start Time Stop Time Status Last Admin Dose Admin Sodium Chloride 10 ml Q8HR IV 12/26/24 22:00 12/31/24 14:00 10 ML Docusate Sodium 100 mg BIDPRN PRN PO 12/26/24 16:00 Acetaminophen 650 mg Q6HP PRN PO 12/26/24 16:00 Acetaminophen/ Hydrocodone Bitart 1 tab Q4HP PRN PO 12/26/24 16:00 12/30/24 21:34 1 TAB Ondansetron HCl 4 mg Q4HP PRN IV 12/26/24 16:00 12/30/24 00:15 4 MG Nitroglycerin 0.4 mg Q5MINP PRN SL 12/26/24 16:00 Morphine Sulfate 2 mg Q30M PRN IV 12/26/24 16:00 Aspirin 81 mg DAILY PO 12/27/24 10:00 12/31/24 10:28 81 MG Digoxin 0.125 mg DAILY PO 12/27/24 10:00 12/31/24 10:32 0.125 MG Docusate Sodium 100 mg BID PO 12/26/24 22:00 Hold Gabapentin 100 mg BID PO 12/26/24 22:00 12/31/24 10:31 100 MG Tamsulosin HCl 0.4 mg DAILY PO 12/27/24 10:00 12/31/24 10:31 0.4 MG Carvedilol 6.25 mg BID PO 12/27/24 10:00 12/31/24 10:31 6.25 MG Patient Own Medication 1 tab DAILY PO 12/27/24 10:00 Hold Pantoprazole Sodium 40 mg DAILY IV 12/27/24 10:00 12/31/24 10:27 40 MG Heparin Sodium (Porcine) 5,000 units Q12HR SC 12/26/24 22:00 12/31/24 10:34 5,000 UNITS Levofloxacin 250 mg DAILY PO 12/27/24 10:00 12/31/24 10:31 250 MG Morphine Sulfate 2 mg Q6HPRN PRN IV 12/27/24 22:00 12/31/24 00:59 2 MG Calcium Acetate 1,334 mg TIDWMEALS PO 12/28/24 12:00 12/31/24 12:00 1,334 MG Calcitriol 0.25 mcg DAILY PO 12/28/24 10:00 12/31/24 10:31 0.25 MCG Clopidogrel Bisulfate 75 mg DAILY PO 12/30/24 10:00 12/31/24 10:31 75 MG Insulin Glargine 30 units BID@0700,2100 [place] 12/30/24 21:00 12/31/24 06:18 30 UNITS Diagnostic Test (Pha) 1 strip ACHS 12/30/24 17:00 12/31/24 11:22 1 STRIP Insulin Human Regular HS [place] 12/30/24 22:00 12/30/24 21:33 4 UNITS Insulin Human Regular AC [place] 12/30/24 17:00 12/31/24 11:24 9 UNITS Dextrose 50 ml UD PRN IV 12/30/24 15:00 laboratory and microbiology Laboratory Tests 12/31/24 05:28 Test 12/31/24 05:28 Range/Units Serum Glucose 130 H 74-106 mg/dL Microbiology Date/Time Source Procedure Growth Status 12/26/24 21:00 Blood Blood Culture - Preliminary NO GROWTH AFTER 72 HOURS OF INCUBATION. Resulted Problem List/Assessment/Plan Problem List/Assessment/Plan Assessment/plan # MARLON on CKD stage IIIB hemodynamically mediated, # Secondary hyperparathyroidism due to CKD PTH levels 158.8 # Anemia of chronic kidney disease due to CKD Hemoglobin 11.0 labs 12/30/2024 # Diabetes mellitus type 2, uncontrolled Hemoglobin A1c 10.3 # Hypertension # Chronic systolic Congestive heart failure # Chest pain, history of CABG, s/p left heart catheterization.stent placement # Peripheral arterial disease # Left below-knee amputation # Wheelchair-bound Plan renal function fluctuation likely sec to contrast good uop in [place] NS iv 1 L close outpt f/u with Plan discussed with: Patient Dietary Evaluation Review Recommendations by RD: Dietary education by RD Comments: 1) Initiate Nephro-Tho @ 1 tb qd 2) Promote optimal PO intake 3) Encourage patient to limit intake of added sugars including sugar-sweetened beverages, desserts, candy, pastries, etc. Aim for a consistent intake of complex carbohydrates spread throughout the day and paired with protein to promote glycemic control 4) Refer to outpatient RD/CDCES for diabetes education and weight management 5) Follow-up with cardiology, pulmonology, and podiatry 6) Continue to monitor I&O, labs, and skin integrity Expected Outcomes/Goals: 1) appetite and labs to improve 2) wound to improve 3) gradual wt loss 4) f/u in 3-5 days LILY WEATHERS MD Dec 31, 2024 14:51
--- NOTE | 2024-12-31 15:02 | DVHDS2 ---
Discharge Summary Date of Admission Dec 26, 2024 at 15:53 Date of Discharge: Dec 31, 2024 Labs/Diagnostic Data: Laboratory Results Test 12/31/24 11:09 12/31/24 05:28 12/30/24 05:22 12/27/24 16:32 POC Glucose 257 mg/dl (70-106) White Blood Count 7.7 10^3/uL (4.4-10.8) Red Blood Count 3.41 10^6/uL (4.5-5.90) Hemoglobin 10.3 g/dL (13.5-17.5) Hematocrit 30.4 % (41.0-53.0) Mean Corpuscular Volume 89.2 fL (80.0-100.0) Mean Corpuscular Hemoglobin 30.1 pg (28.0-32.0) Mean Corpuscular Hemoglobin Concent 33.8 g/dL (32.0-36.0) Red Cell Distribution Width 13.9 % (11.8-14.3) Platelet Count 191 10^3/uL (140-450) Mean Platelet Volume 7.1 fL (6.9-10.8) Neutrophils (%) (Auto) 63.8 % (37.0-80.0) Lymphocytes (%) (Auto) 21.2 % (10.0-50.0) Monocytes (%) (Auto) 12.4 % (0.0-12.0) Eosinophils (%) (Auto) 2.3 % (0.0-7.0) Basophils (%) (Auto) 0.3 % (0.0-2.0) Neutrophils # (Auto) 4.9 10 ^3/uL (1.6-8.6) Lymphocytes # (Auto) 1.6 10 ^3/uL (0.4-5.4) Monocytes # (Auto) 1.0 10 ^3/uL (0-1.3) Eosinophils # (Auto) 0.2 10 ^3/uL (0-0.8) Basophils # (Auto) 0 10 ^3/uL (0-0.2) Nucleated Red Blood Cells 0.0 % Sodium Level 137 mmol/L (136-145) Potassium Level 3.9 mmol/L (3.5-5.1) Chloride Level 103 mmol/L (98-107) Carbon Dioxide Level 25 mmol/L (20-31) Anion Gap 9 (5-15) Blood Urea Nitrogen 36 mg/dL (9-23) Creatinine 3.16 mg/dL (0.700-1.30) Glomerular Filtration Rate Calc 22 mL/min (>90) BUN/Creatinine Ratio 11.4 (10.0-20.0) Serum Glucose 130 mg/dL (74-106) Calcium Level 8.3 mg/dL (8.7-10.4) Total Bilirubin 0.2 mg/dL (0.2-1.0) Aspartate Amino Transferase (AST) 16 U/L (13-40) Alanine Aminotransferase (ALT) 16 U/L (7-40) Alkaline Phosphatase 79 U/L (46-116) Total Protein 6.0 g/dL (5.7-8.2) Albumin 3.5 g/dL (3.2-4.8) Magnesium Level 1.9 mg/dL (1.6-2.6) Hemoglobin A1c 10.3 % A1C (<5.7) Test 12/27/24 12:54 12/27/24 11:27 12/27/24 04:08 12/27/24 00:10 Urine Color Light-yellow (Yellow) Urine Clarity Cloudy (Clear) Urine pH 6.0 (5.0-9.0) Urine Specific Corea 1.008 (1.001-1.035) Urine Protein Negative (Negative) Urine Ketones Negative (Negative) Urine Blood Negative /uL (Negative) Urine Nitrite Negative (Negative) Urine Bilirubin Negative (Negative) Urine Urobilinogen Normal mg/dL (Negative) Urine Leukocyte Esterase 3+ /uL (Negative) Urine RBC 4 /hpf (0 - 3) Urine WBC Clumps Present /hpf (None Seen) Urine Microscopic WBC 27 /HPF (0-3) Urine Squamous Epithelial Cells Few /hpf (<5) Urine Bacteria Few /hpf (None Seen) Urine Yeast (Budding) Moderate /hpf (None Seen) Urine Creatinine 42.01 mg/dL (30.0-125.0) Urine Protein/Creatinine Ratio 0.63 Urine Sodium 39 mmol/L (40-220) Urine Glucose 3+ mg/dL (Normal) Urine Total Protein 26.4 mg/dL (1-14) Urine Opiates Screen Neg (NEGATIVE) Urine Fentanyl Screen Neg (NEGATIVE) Urine Barbiturates Screen Neg (NEGATIVE) Urine Phencyclidine Screen Neg (NEGATIVE) Urine Amphetamines Screen Neg (NEGATIVE) Urine Benzodiazepines Screen Neg (NEGATIVE) Urine Cocaine Screen Neg (NEGATIVE) Urine Cannabinoids Screen Neg (NEGATIVE) Vitamin D 25-Hydroxy 34.9 ng/mL (30.0-100) Hepatitis B Surface Antigen Negative (Negative) Hepatitis C Antibody Negative (Negative) Phosphorus Level 4.8 mg/dL (2.4-5.1) Parathyroid Hormone (Intact) 158.8 pg/mL (18.4-80.1) Troponin I High Sensitivity 21 ng/L (</=54) Test 12/26/24 21:00 Prothrombin Time 10.3 sec (9.3-11.8) Prothrombin Time INR 0.97 (0.9-1.15) Activated Partial Thromboplast Time 24.7 SEC (24.5-34.5) B-Type Natriuretic Peptide 31.21 pg/mL (0-100) Thyroid Stimulating Hormone (TSH) 4.32 uIU/mL (0.55-4.78) Digoxin Level 1.54 ng/mL (0.8-2) Other Laboratory Tests 12/31/24 05:28 Brief Hx & Hospital Course: 59-year-old male with a known history of CAD status post CABG, hypertension, dyslipidemia, diabetes mellitus type 2, peripheral neuropathy, ischemic cardiomyopathy, CKD stage IIIB, prostatic enlargement, chronic indwelling Mtz catheter initially presented to the hospital with the chest pain was seen by Dr. Dubon with Cardiology as an outpatient was sent to ER. Patient underwent left heart catheterization with the intervention/drug-eluting stent to proximal LAD. Postprocedure patient did fairly well but he had some issues with the arrangement of home health. social services director on bowel once home health will be arranged patient can be discharged with a close follow up as an outpatient with the PCP, Cardiology, Dr. Fidel Gonsalez. Patient understand verbalized understanding and agreeable to plan. Condition at Discharge: Stable Final Diagnosis/Problems List Worsening systolic heart failure CKD Peripheral artery disease Coronary artery disease, status post CABG Ischemic cardiomyopathy Diabetes mellitus Diabetic neuropathy Peripheral artery disease, status post peripheral angioplasty History of foot osteomyelitis Chronic leg infection s/p PCI: TAMMY deployment of proximal LAD Discharge Disposition: Home with Health Services SNF Discharge Will this Physician continue t: No Discharge Instruct/Medications Diet: Consistent carbohydrate, Cardiac 2g Na,low cholest Activity: No Restrictions, As Tolerated Follow Up/Referral: cardiology next week and PCP 2 weeks Medications: as prescribed and home medications Continued Medications: Albuterol Sulfate (Albuterol Sulfate Hfa) 108 Mcg/Act Aer 1 PUFF PO Q4H PRN for SHORTNESS OF BREATH Aspirin (Aspirin Low Dose) 81 Mg Tab 1 TAB PO DAILY, #90 TAB (This prescription has been renewed) Atorvastatin Calcium (Atorvastatin Calcium) 40 Mg Tab 1 TAB PO DAILY, #30 TAB 1 Refill (This prescription has been renewed) Calcitriol (Calcitriol) 0.25 Mcg Cap 0.25 MCG PO DAILY for 30 Days, MCG Carvedilol (Coreg) 12.5 Mg Tab 12.5 MG OR BID, TAB Cholecalciferol (Vitamin D3) 2,000 Unit Tab 2000 UNIT OR, TAB Cholecalciferol (Vitamin D3) 2,000 Unit Tab 125 MCG OR DAILY, TAB Clopidogrel Bisulfate (Clopidogrel) 75 Mg Tab 1 TAB PO DAILY, #120 TAB 1 Refill (This prescription has been renewed) Digoxin (Digoxin) 125 Mcg Tab 1 TAB PO DAILY Docusate Sodium (Docusate Sodium) 100 Mg Cap 1 CAP PO BID Enalapril Maleate (Enalapril Maleate) 10 Mg Tab 1 TAB PO BID for HTN Ferrous Sulfate (Ferosul) 325 Mg Tab 325 MG PO DAILY, TAB Finasteride (Finasteride) 5 Mg Tab 5 MG PO DAILY for 30 Days, MG Furosemide (Lasix) 40 Mg Tab 40 MG PO DAILY, TAB Gabapentin (Gabapentin) 100 Mg Cap 1 CAP PO BID Hydrocodone-Acetaminophen (Hydrocodone Bitartrate/AC 10-325 mg) 1 Tab Tab 1 TAB PO Q6HP PRN for Pain Insulin Glargine (Basaglar Kwikpen) 100 Unit/Ml Inj 70 UNITS SC AM & HS Insulin Lispro (Insulin Lispro Kwikpen) 100 Unit/Ml Inj 30 UNIT SC TID Loratadine (Claritin Tablet) 10 Mg Tb 1 TAB PO DAILY Magnesium Oxide (Magnesium Oxide) 400 Mg Tab 400 MG OR DAILY, TAB Nystatin (Nystatin) 100,000 Unit/Gm Cre 1 APPLIC TOP BID Ondansetron HCl (Ondansetron Hydrochloride) 4 Mg Tab 4 MG PO Q8HP PRN for NAUSEA / VOMITING Pancrelipase (Lipase-Protease- (Creon) 36,000 Unt Cap 2 CAP PO TID Pantoprazole Sodium Sesquihydr (Protonix) 40 Mg Tab 40 MG PO DAILY, #30 TAB Potassium Chloride (K-Tab) 8 Meq Tab 1 TAB PO DAILY Rosuvastatin Calcium (Rosuvastatin Calcium) 5 Mg Tab 1 TAB PO DAILY Semaglutide (Ozempic) 2 Mg/1.5 Ml Inj 0.25 MG SC Weekly Tamsulosin Hcl (Tamsulosin Hcl) 0.4 Mg Cap 1 CAP PO DAILY Discontinued Medications: Levofloxacin Hemihydrate (Levofloxacin) 500 Mg Tab 500 MG PO DAILY for 14 Days, #14 TAB Scheduled Aspirin (Aspirin Low Dose), 1 TAB PO DAILY Atorvastatin Calcium (Atorvastatin Calcium), 1 TAB PO DAILY Calcitriol (Calcitriol), 0.25 MCG PO DAILY, (Reported) Carvedilol (Coreg), 12.5 MG OR BID, (Reported) Cholecalciferol (Vitamin D3), 125 MCG OR DAILY, (Reported) Clopidogrel Bisulfate (Clopidogrel), 1 TAB PO DAILY Digoxin (Digoxin), 1 TAB PO DAILY, (Reported) Docusate Sodium (Docusate Sodium), 1 CAP PO BID, (Reported) Enalapril Maleate (Enalapril Maleate), 1 TAB PO BID, (Reported) Ferrous Sulfate (Ferosul), 325 MG PO DAILY, (Reported) Finasteride (Finasteride), 5 MG PO DAILY, (Reported) Furosemide (Lasix), 40 MG PO DAILY, (Reported) Gabapentin (Gabapentin), 1 CAP PO BID, (Reported) Insulin Glargine (Basaglar Kwikpen), 70 UNITS SC AM & HS, (Reported) Insulin Lispro (Insulin Lispro Kwikpen), 30 UNIT SC TID, (Reported) Loratadine (Claritin Tablet), 1 TAB PO DAILY, (Reported) Magnesium Oxide (Magnesium Oxide), 400 MG OR DAILY, (Reported) Nystatin (Nystatin), 1 APPLIC TOP BID, (Reported) Pancrelipase (Lipase-Protease- (Creon), 2 CAP PO TID, (Reported) Pantoprazole Sodium Sesquihydr (Protonix), 40 MG PO DAILY, (Reported) Potassium Chloride (K-Tab), 1 TAB PO DAILY, (Reported) Rosuvastatin Calcium (Rosuvastatin Calcium), 1 TAB PO DAILY, (Reported) Semaglutide (Ozempic), 0.25 MG SC Weekly, (Reported) Tamsulosin Hcl (Tamsulosin Hcl), 1 CAP PO DAILY, (Reported) Scheduled PRN Albuterol Sulfate (Albuterol Sulfate Hfa), 1 PUFF PO Q4H PRN for SHORTNESS OF BREATH, (Reported) Hydrocodone-Acetaminophen (Hydrocodone Bitartrate/AC 10-325 mg), 1 TAB PO Q6HP PRN for Pain, (Reported) Ondansetron HCl (Ondansetron Hydrochloride), 4 MG PO Q8HP PRN for NAUSEA / VOMITING, (Reported) Miscellaneous Medications Cholecalciferol (Vitamin D3), 2,000 UNIT OR, (Reported) Discontinued Medications Carvedilol (Carvedilol), 1 TAB PO BID, (Reported) Discontinued Reason: Prescription changed Levofloxacin Hemihydrate (Levofloxacin), 500 MG PO DAILY Discharge Statement: "Patient was advised to return to the ER or call 911 if any headaches, dizziness, shortness of breath, chest pain, abdominal pain, bleeding, fevers, or worsening of medical condition. Patient was counseled about treatment plan, medications, possible side effects, patientverbalized understanding. All questions were answered to the best of my ability. This discharge took greater then 30 minutes in planning, reviewing documentation, counseling the patient, and discussing with other team members." ASSESSMENT ASSESSMENT Assessment Worsening systolic heart failure CKD Peripheral artery disease Coronary artery disease, status post CABG Ischemic cardiomyopathy Diabetes mellitus Diabetic neuropathy Peripheral artery disease, status post peripheral angioplasty History of foot osteomyelitis Chronic leg infection s/p PCI: TAMMY deployment of proximal LAD Date of Service: Dec 31, 2024 Billing Provider: SONIA BERNAL MD Common Visit Codes: 16728-BGP/OBS DISCH DAY >30min SONIA BERNAL MD Dec 31, 2024 15:02
[2025-01-01 01:00] VITALS: BP 137/63; PULSE 74; RESP 17; TEMP 98.2; O2SAT 100
[2025-01-01 05:00] VITALS: BP 124/67; PULSE 81; RESP 18; TEMP 98.1; O2SAT 99
[2025-01-01 08:00] VITALS: PULSE 85; RESP 14; O2SAT 100
[2025-01-01 08:16] LABS: Hematocrit 29.4 % (41.0-53.0); Hemoglobin 10.0 g/dL (13.5-17.5); Mean Corpuscular Hemoglobin 30.4 pg (28.0-32.0); Mean Corpuscular Volume 89.3 fL (80.0-100.0); Nucleated Red Blood Cells % 0.0 %
[2025-01-01 08:29] LABS: Anion Gap 9 (5-15); Carbon Dioxide 25 mmol/L (20-31); Chloride 104 mmol/L (98-107); Potassium 4.3 mmol/L (3.5-5.1); Sodium 138 mmol/L (136-145)
[2025-01-01 08:30] LABS: Calcium 8.5 mg/dL (8.7-10.4)
[2025-01-01 08:35] LABS: BUN/Creatinine Ratio 10.4 (10.0-20.0)
[2025-01-01 08:38] LABS: Blood Urea Nitrogen 33 mg/dL (9-23); Glucose 240 mg/dL (74-106)
--- NOTE | 2025-01-01 08:59 | DVHPN2 ---
Progress Note - Dictate Date Seen: Jan 01, 2025 Medical Necessity Reason Pt with a Central, PICC or Fol: No vital signs Vital Sign Date Time Temp Pulse Resp B/P (MAP) Pulse Ox O2 Delivery O2 Flow Rate FiO2 01/01/25 05:00 98.1 81 18 124/67 (86) 99 98.1 12/31/24 20:00 Nasal Cannula* 4 36 Total Intake and Output 12/31/24 12/31/24 01/01/25 15:00 23:00 07:00 Intake Total 420 ml 500 ml Output Total 1975 ml 1875 ml Balance -1555 ml -1375 ml medications Current Medications Medications Dose Ordered Sig/Prashant Route Start Time Stop Time Status Last Admin Dose Admin Sodium Chloride 10 ml Q8HR IV 12/26/24 22:00 01/01/25 06:21 10 ML Docusate Sodium 100 mg BIDPRN PRN PO 12/26/24 16:00 Acetaminophen 650 mg Q6HP PRN PO 12/26/24 16:00 Acetaminophen/ Hydrocodone Bitart 1 tab Q4HP PRN PO 12/26/24 16:00 01/01/25 00:45 1 TAB Ondansetron HCl 4 mg Q4HP PRN IV 12/26/24 16:00 12/30/24 00:15 4 MG Nitroglycerin 0.4 mg Q5MINP PRN SL 12/26/24 16:00 Morphine Sulfate 2 mg Q30M PRN IV 12/26/24 16:00 Aspirin 81 mg DAILY PO 12/27/24 10:00 12/31/24 10:28 81 MG Digoxin 0.125 mg DAILY PO 12/27/24 10:00 12/31/24 10:32 0.125 MG Docusate Sodium 100 mg BID PO 12/26/24 22:00 Hold Gabapentin 100 mg BID PO 12/26/24 22:00 12/31/24 20:21 100 MG Tamsulosin HCl 0.4 mg DAILY PO 12/27/24 10:00 12/31/24 10:31 0.4 MG Carvedilol 6.25 mg BID PO 12/27/24 10:00 12/31/24 20:20 6.25 MG Patient Own Medication 1 tab DAILY PO 12/27/24 10:00 Hold Pantoprazole Sodium 40 mg DAILY IV 12/27/24 10:00 12/31/24 10:27 40 MG Heparin Sodium (Porcine) 5,000 units Q12HR SC 12/26/24 22:00 12/31/24 20:20 5,000 UNITS Levofloxacin 250 mg DAILY PO 12/27/24 10:00 12/31/24 10:31 250 MG Morphine Sulfate 2 mg Q6HPRN PRN IV 12/27/24 22:00 12/31/24 20:23 2 MG Calcium Acetate 1,334 mg TIDWMEALS PO 12/28/24 12:00 01/01/25 08:28 1,334 MG Calcitriol 0.25 mcg DAILY PO 12/28/24 10:00 12/31/24 10:31 0.25 MCG Clopidogrel Bisulfate 75 mg DAILY PO 12/30/24 10:00 12/31/24 10:31 75 MG Insulin Glargine 30 units BID@0700,2100 SC 12/30/24 21:00 01/01/25 06:26 30 UNITS Diagnostic Test (Pha) 1 strip ACHS 12/30/24 17:00 01/01/25 06:26 1 STRIP Insulin Human Regular HS SC 12/30/24 22:00 12/31/24 20:22 6 UNITS Insulin Human Regular AC SC 12/30/24 17:00 01/01/25 06:26 6 UNITS Dextrose 50 ml UD PRN IV 12/30/24 15:00 laboratory and microbiology Laboratory Tests 01/01/25 07:39 Test 01/01/25 07:39 Range/Units Serum Glucose 240 #H 74-106 mg/dL Assessment/Plan s/p LHC, s/p PCI (TAMMY deployment in proximal LAD) Patient is a 59-year-old gentleman who presented to the hospital secondary to worsening heart failure. He follows with cardiology regularly and ejection fraction has dropped from 60% in 2021 to 30 to 35% in November 2024. He does have advanced CKD. He had been offered left heart catheterization for further evaluation of coronaries (does have history of coronary artery disease/CABG) but as the kidney function had worsened, suggestion was inpatient management and rehydration prior to cardiac catheterization. Patient also had been experiencing shortness of breath. Does have baseline poor functional capacity and is wheelchair-bound, has had left below-knee amputation and does have chronic wound to the right lower extremity. Goes to wound care as outpatient. Follows with Nephrology as outpatient regularly. Not in acute distress. Sitting in bed. No JVD. Mucosa is pink and wet. No carotid bruit. Lungs are clear to auscultation. Not using accessory muscles of breathing. Cardiac: Regular, no thrill/gallop. Abdomen is soft and obese. Bowel sound is positive. Status post left below-knee amputation. Chronic wound to the right lower extremities present. Access site in right groin: no hematoma Past medical history includes coronary artery disease and status post CABG, peripheral artery disease and status post peripheral angioplasty, diabetes mellitus, diabetic neuropathy, CKD, status post left below-knee amputation, chronic right foot wound/cellulitis and history of foot osteomyelitis (right side), asthma/COPD, BPH, morbid obesity, SVT/NSVT, recurrent UTIs and BPH. He is wheelchair-bound. Allergic to penicillin/sulfa/clindamycin He is ex-smoker. Occasionally uses marijuana. Does drink alcohol socially. Echocardiogram of March 29, 2022 had revealed mild concentric left ventricular hypertrophy, ejection fraction of 60-65% and mild biatrial enlargement Echocardiogram of April 24, 2024 had revealed concentric left ventricular hypertrophy, ejection fraction of 45-50%, anteroseptal hypokinesia, moderate left atrial enlargement, mild mitral annular calcification, mild MR/TR and right ventricular systolic pressure of less than 35 mm Hg Echocardiogram of December 02, 2024 (performed in the office) revealed concentric left ventricular hypertrophy, ejection fraction of 30-35%, pseudo normal LV filling, mild biatrial enlargement, mild right ventricular enlargement, mild MR/TR and right ventricular systolic pressure of 45 mm Hg Nuclear stress test of February 28, 2024 (performed in [facility]) reported no ischemia and dilated left ventricle WBC: 10.2 - 10.2 - 12.7 - 9.1 - 9.2 - 9.7 - 7.7 - 7.5 Hemoglobin: 12.2 - 11.7 - 11.4 - 11.1 - 10.9 - 11.0 - 10.3 - 10.0 Creatinine: 2.9 - 3.02 - 3.01 - 3.06 - 2.79 - 2.80 - 3.16 - 3.18 Potassium: 4.3 - 4.1 - 3.8 - 4.3 - 4.1 - 4.3 - 3.9 - 4.3 GFR: 24 -23 - 23 - 23 - 25 - 25 - 22 - 22 Troponin (high sensitive): 27 - 25 - 23 - 22 - 24 - 21 BNP: 31.21 TSH: 4.32 Digoxin: 1.54 HgbA1c: 10.3 Urine toxicology: non-revealing Chest x-ray revealed: IMPRESSION: No acute intrathoracic abnormality. Renal ultrasound revealed: IMPRESSION: No hydronephrosis. Increased echogenicity of bilateral kidneys can be seen in chronic medical renal disease. Telemetry reveals sinus rhythm Echocardiogram revealed: Dilated chambers Left ventricle: Left ventricle was dilated. LVEF was 35%. Concentric left ventricular hypertrophy was seen. Diffuse hypokinesis with more pronounced anterior/apical akinesia was seen. Right ventricle was dilated with reduced systolic function. Both atria were mildly dilated. Aortic valve: Aortic valve was trileaflet. There was no aortic insufficiency/stenosis. There was trace mitral/tricuspid regurgitation. Pulmonary valve was not well visualized. As there was no good tricuspid regurgitation jet, right ventricular systolic pressure could not be estimated. There was no pericardial effusion. s/p LHC: Multivessel coronary artery disease, Proximal LAD with 85% lesion. mid- RCA with 90% lesion, Patent SVG to RPDA. Patent SVG to obtuse marginal. Patent ROSE to diagonal (no retrograde flow into LAD). Status post PCI (drug-eluting stent deployment of proximal LAD). LVEDP was 17 mm Hg Patient is a 59-year-old gentleman who presented with worsening left ventricular systolic function. He does have heart failure. Does have baseline history of coronary artery disease and has had CABG years ago. He also has advanced CKD. Comorbidities include peripheral artery disease and chronic foot infection. LHC revealed multivessel CAD. Patent grafts. Graft were nourishing RPDA, OM and also Diagonal. There was no retrograde flow from Diagonal into LAD. LAD itself had 85% proximal disease. s/p PCI: TAMMY deployment of proximal LAD. Repeat labs reveal that kidney function remained the same after cardiac cath. Worsening systolic heart failure CKD Peripheral artery disease Coronary artery disease, status post CABG Ischemic cardiomyopathy Diabetes mellitus Diabetic neuropathy Peripheral artery disease, status post peripheral angioplasty History of foot osteomyelitis Chronic leg infection s/p PCI: TAMMY deployment of proximal LAD Cardiac suggestion for management: Manage on telemetry Follow-up electrolytes and kidney function tests and correct abnormalities Dual antiplatelet therapy (ASA/Plavix) for at least one year GDMT for systolic heart failure (on Carvedilol). MELVA inhibitor/ARB on hold for CKD. Their start depends on Nephrology suggestion/permission. Nephrology on board Cardiac cardenas, can be followed as outpatient Further evaluation and management depends on the above and clinical course A total of 55 minutes was spent reviewing the patient record, examining the patient, making a diagnostic and therapeutic plan, discussing this plan with medical personnel, following up on diagnostic studies and following the patient for clinical stability excluding any and all procedures. At least 50% of this time was spent in direct, [id number] contact. Thank you for allowing me to participate in this patient's care. Further recommendations will depend on patient's clinical course. Please do not hesitate to contact me if you have any questions or concerns. This medical document was created using electronic medical record system with [email or web address] dictation system. Although this document has been carefully reviewed, there may still be some phonetic and typographical errors. These areas are purely typographical due to the imperfection of the software programs, and do not reflect any compromise in the patient's medical care. Dietary Evaluation Review Recommendations by RD: Dietary education by RD Comments: 1) Initiate Nephro-Tho @ 1 tb qd 2) Promote optimal PO intake 3) Encourage patient to limit intake of added sugars including sugar-sweetened beverages, desserts, candy, pastries, etc. Aim for a consistent intake of complex carbohydrates spread throughout the day and paired with protein to promote glycemic control 4) Refer to outpatient RD/CDCES for diabetes education and weight management 5) Follow-up with cardiology, pulmonology, and podiatry 6) Continue to monitor I&O, labs, and skin integrity Expected Outcomes/Goals: 1) appetite and labs to improve 2) wound to improve 3) gradual wt loss 4) f/u in 3-5 days Plan discussed with: Patient, Other (nurse) WAI LAGOS MD Jan 01, 2025 08:59
[2025-01-01 09:00] VITALS: BP 135/74; PULSE 84; RESP 20; TEMP 98; O2SAT 99
[2025-01-01 13:00] VITALS: BP 121/61; PULSE 92; RESP 20; TEMP 98.1; O2SAT 97
--- NOTE | 2025-01-01 13:42 | DVHPN2 ---
Progress Note Date Seen: Jan 01, 2025 Resident Creating Document: AMIRA GARCIA RESIDENT Medical Necessity Reason Pt with a Central, PICC or Fol: No Subjective Review of Systems 59-year-old male patient with past medical history of hypertension, diabetes mellitus type 2, coronary artery disease status post CABG, congestive heart failure, peripheral arterial disease, BPH and obstructive uropathy, chronic Mtz catheter use and CKD presented with complaints of left-sided chest tightness. Patient was sent by Dr. Dubon, interpersonal communications professor for left heart catheterization. Patient sees Dr. Jimenez as an outpatient for CKD On presentation, patient was found to be in [facility] and Nephrology was consulted. Past medical history Hypertension Type 2 diabetes mellitus Coronary artery disease status CABG Congestive heart failure Peripheral arterial disease BPH Obstructive uropathy Chronic Mtz catheter use Chronic kidney disease Past surgical history Below knee amputation on left side Social History Smoker: Non-Smoker Alcohol: Denies ETOH Use Drugs: Marijuana Lives In: Home Interval events 12/29/2024 Seen and examined at bedside Patient is mentioning of mild left-sided chest pressure. Patient has no other complaints Patient is scheduled for left heart catheterization today Currently on normal saline at 125 cc/hour Input output Last 24 hours 3575 mL/3000 mL with a net positive of + 574 ml 800 cc of urine since today morning 12/30/2024 Patient has had left heart catheterization yesterday with PCI of LAD IV fluids were stopped 12 hours post contrast Patient mentioned no active complaints Input output 3050/4300 with a net of-1.25 L 12/31/24 creatinine increased from 2.8 to 3.16 01/01/25 creatinine 3.18 from 3.16 no signs of volume overload on room air Objective vital signs Vital Sign Date Time Temp Pulse Resp B/P (MAP) Pulse Ox O2 Delivery O2 Flow Rate FiO2 01/01/25 10:56 84 01/01/25 10:55 135/74 01/01/25 09:00 98.0 20 99 98.0 01/01/25 08:00 Nasal Cannula* 4 36 Total Intake and Output 12/31/24 12/31/24 01/01/25 15:00 23:00 07:00 Intake Total 420 ml 500 ml Output Total 1975 ml 1875 ml Balance -1555 ml -1375 ml medications Current Medications Medications Dose Ordered Sig/Prashant Route Start Time Stop Time Status Last Admin Dose Admin Sodium Chloride 10 ml Q8HR IV 12/26/24 22:00 01/01/25 06:21 10 ML Docusate Sodium 100 mg BIDPRN PRN PO 12/26/24 16:00 Acetaminophen 650 mg Q6HP PRN PO 12/26/24 16:00 Acetaminophen/ Hydrocodone Bitart 1 tab Q4HP PRN PO 12/26/24 16:00 01/01/25 00:45 1 TAB Ondansetron HCl 4 mg Q4HP PRN IV 12/26/24 16:00 12/30/24 00:15 4 MG Nitroglycerin 0.4 mg Q5MINP PRN SL 12/26/24 16:00 Morphine Sulfate 2 mg Q30M PRN IV 12/26/24 16:00 Aspirin 81 mg DAILY PO 12/27/24 10:00 01/01/25 10:54 81 MG Digoxin 0.125 mg DAILY PO 12/27/24 10:00 01/01/25 10:56 0.125 MG Docusate Sodium 100 mg BID PO 12/26/24 22:00 Hold Gabapentin 100 mg BID PO 12/26/24 22:00 01/01/25 10:54 100 MG Tamsulosin HCl 0.4 mg DAILY PO 12/27/24 10:00 01/01/25 10:56 0.4 MG Carvedilol 6.25 mg BID PO 12/27/24 10:00 01/01/25 10:55 6.25 MG Patient Own Medication 1 tab DAILY PO 12/27/24 10:00 Hold Pantoprazole Sodium 40 mg DAILY IV 12/27/24 10:00 01/01/25 10:54 40 MG Heparin Sodium (Porcine) 5,000 units Q12HR SC 12/26/24 22:00 01/01/25 11:10 5,000 UNITS Levofloxacin 250 mg DAILY PO 12/27/24 10:00 01/01/25 10:55 250 MG Morphine Sulfate 2 mg Q6HPRN PRN IV 12/27/24 22:00 12/31/24 20:23 2 MG Calcium Acetate 1,334 mg TIDWMEALS PO 12/28/24 12:00 01/01/25 11:34 1,334 MG Calcitriol 0.25 mcg DAILY PO 12/28/24 10:00 01/01/25 10:54 0.25 MCG Clopidogrel Bisulfate 75 mg DAILY PO 12/30/24 10:00 01/01/25 10:56 75 MG Insulin Glargine 30 units BID@0700,2100 SC 12/30/24 21:00 01/01/25 06:26 30 UNITS Diagnostic Test (Pha) 1 strip ACHS 12/30/24 17:00 01/01/25 11:10 1 STRIP Insulin Human Regular HS SC 12/30/24 22:00 12/31/24 20:22 6 UNITS Insulin Human Regular AC SC 12/30/24 17:00 01/01/25 11:15 12 UNITS Dextrose 50 ml UD PRN IV 12/30/24 15:00 Examination Examination General Appearance: Alert, Oriented X3, Cooperative, No acute distress HEENT: EOMI Respiratory: Clear to auscultation, Normal air movement Cardiovascular: Regular rate, Normal S1, Normal S2 Abdominal: Normal bowel sounds Extremities: Left sided below-knee amputation, wound dressing of the 1st toe right foot, Neuro: Normal speech and tone laboratory and microbiology Laboratory Tests 01/01/25 07:39 Test 01/01/25 07:39 Range/Units Serum Glucose 240 #H 74-106 mg/dL Microbiology Date/Time Source Procedure Growth Status 12/26/24 21:00 Blood Blood Culture - Final NO GROWTH AFTER 5 DAYS OF INCUBATION. Complete Labs and/or images reviewed: Labs reviewed by me, Image(s) reviewed by me Problem List/Assessment/Plan Problem List/Assessment/Plan Assessment/plan # MARL[facility] on CKD stage IIIB hemodynamically mediated, responsive to IV fluids -kidney ultrasound reported bilateral echogenic kidney no obstruction input/output 920/2850 with a net of -2930 ml creatinine 3.18 today from 3.16 yesterday 12/27/2024 Urine protein to creatinine ratio 0.63 Urine sodium 39 Urine total protein 26.4 Urine creatinine 42.01 FeNA 2.1 % # asymptomatic hypocalcemia due to CKD Labs 12/30/2024, corrected calcium 8.6 # Secondary hyperparathyroidism due to CKD PTH levels 158.8 # Anemia of chronic kidney disease due to CKD Hemoglobin 11.0 labs 12/30/2024 # Diabetes mellitus type 2, uncontrolled Hemoglobin A1c 10.3 # Hypertension # Chronic systolic Congestive heart failure # Chest pain, history of CABG, planned to have left heart catheterization # Peripheral arterial disease # Left below-knee amputation # Wheelchair-bound Plan Monitor kidney function and electrolytes Strict input and output Renal diet Continue Mtz catheter, Urology was consulted by the primary team, for evaluation for BPH and obstructive uropathy Continue calcium acetate t.i.d. with meals and calcitriol 0.25 mcg daily renal function fluctuation likely sec to contrast pt has good urine output in Mtz catheter Patient needs Tighter control of hemoglobin A1c Outpatient follow up with Nephrology Case discussion with Dr Weathers Addendum Patient seen and examined, plan discussed with resident. Agree with above, we will follow closely Plan discussed with: Patient, Other Dietary Evaluation Review Recommendations by RD: Dietary education by RD Comments: 1) Initiate Nephro-Tho @ 1 tb qd 2) Promote optimal PO intake 3) Encourage patient to limit intake of added sugars including sugar-sweetened beverages, desserts, candy, pastries, etc. Aim for a consistent intake of complex carbohydrates spread throughout the day and paired with protein to promote glycemic control 4) Refer to outpatient RD/CDCES for diabetes education and weight management 5) Follow-up with cardiology, pulmonology, and podiatry 6) Continue to monitor I&O, labs, and skin integrity Expected Outcomes/Goals: 1) appetite and labs to improve 2) wound to improve 3) gradual wt loss 4) f/u in 3-5 days AMIRA GARCIA Jan 01, 2025 13:42 LILY WEATHERS MD Jan 01, 2025 16:41
== END 2025-01-01 18:50 | disposition home health service (06) | DRG 321 ==
LOC: ER 10:19 → OVERFLOW 15:53 → DOU 12-27 17:30 → WEST WING 12-31 21:20
PROVIDERS: ADMIT Internal Medicine; ATTEND Internal Medicine
PROC: 027034Z Dilation of Coronary Artery, One Artery with Drug-eluting Intraluminal Device, Percutaneous Approach (ICD-10-PCS; principal; 2024-12-29)
PROC: B211YZZ Fluoroscopy of Multiple Coronary Arteries using Other Contrast (ICD-10-PCS; 2024-12-29)
PROC: B213YZZ Fluoroscopy of Multiple Coronary Artery Bypass Grafts using Other Contrast (ICD-10-PCS; 2024-12-29)
PROC: 4A023N7 Measurement of Cardiac Sampling and Pressure, Left Heart, Percutaneous Approach (ICD-10-PCS; 2024-12-29)
PROC: B215YZZ Fluoroscopy of Left Heart using Other Contrast (ICD-10-PCS; 2024-12-29)
DX: I24.9 Acute ischemic heart disease, unspecified (principal); I50.23 Acute on chronic systolic (congestive) heart failure; N17.9 Acute kidney failure, unspecified; N25.81 Secondary hyperparathyroidism of renal origin; I13.0 Hypertensive heart and chronic kidney disease with heart failure and stage 1 through stage 4 chronic kidney disease, or unspecified chronic kidney disease; I25.5 Ischemic cardiomyopathy; D63.1 Anemia in chronic kidney disease; E83.51 Hypocalcemia; I25.10 Atherosclerotic heart disease of native coronary artery without angina pectoris; K76.0 Fatty (change of) liver, not elsewhere classified; J44.89 Other specified chronic obstructive pulmonary disease; N18.32 Chronic kidney disease, stage 3b; I34.81 Nonrheumatic mitral (valve) annulus calcification; E66.01 Morbid (severe) obesity due to excess calories; E11.22 Type 2 diabetes mellitus with diabetic chronic kidney disease; E11.42 Type 2 diabetes mellitus with diabetic polyneuropathy; Z68.34 Body mass index [BMI] 34.0-34.9, adult; E11.51 Type 2 diabetes mellitus with diabetic peripheral angiopathy without gangrene; L08.9 Local infection of the skin and subcutaneous tissue, unspecified; R33.8 Other retention of urine; N40.1 Benign prostatic hyperplasia with lower urinary tract symptoms; E78.5 Hyperlipidemia, unspecified; E83.39 Other disorders of phosphorus metabolism; Z88.0 Allergy status to penicillin; Z88.2 Allergy status to sulfonamides; Z99.3 Dependence on wheelchair; Z95.1 Presence of aortocoronary bypass graft; Z89.512 Acquired absence of left leg below knee; Z88.1 Allergy status to other antibiotic agents; Z87.891 Personal history of nicotine dependence; Z87.440 Personal history of urinary (tract) infections; Z83.3 Family history of diabetes mellitus; Z82.0 Family history of epilepsy and other diseases of the nervous system; Z79.899 Other long term (current) drug therapy; Z79.82 Long term (current) use of aspirin; Z79.02 Long term (current) use of antithrombotics/antiplatelets
CPT/HCPCS: 36415; 71045; 76775; 80048; 80053; 80162; 80307; 81001; 82306; 82570; 82962; 83036; 83735; 83880; 83970; 84100; 84156; 84300; 84443; 84484; 85025; 85610; 85730; 86803; 87040; 87340; 92928; 93005; 93306; 93459; 96360; 99152; 99291; C1894; G0378; J1815; J2250; J2405; J2470; Q9967